=== PATIENT | female | born 2005 | race Two or more races ===

== ENCOUNTER 2023-07-22 14:34 | Outpatient (REF) | payer MEDICAID, SELFPAY ==
[2023-07-24 17:19] LABS: C. trachomatis RNA TMA NOT DETECTED (NOT DETECTED); N. gonorrhoeae RNA TMA NOT DETECTED (NOT DETECTED)
== END 2023-07-22 14:35 | disposition home or self-care (01) ==
LOC: HO.HHCLNP 14:34
PROVIDERS: Visit Provider Internal Medicine
DX: N76.0 Acute vaginitis (principal); N92.6 Irregular menstruation, unspecified
CPT/HCPCS: 36415; 81513; 87491; 87591

== ENCOUNTER 2023-07-30 13:32 | Outpatient (REF) | payer MEDICAID, SELFPAY ==
[2023-07-30 17:26] LABS: MANUAL DIFF FLAG NO
[2023-07-30 17:41] LABS: Basophils Percent Auto 0.4 % (0-2); Eosinophils Absolute Auto 0.1 X10*3/uL (0.0-0.4); Eosinophils Percent Auto 0.8 % (0-4); Hematocrit 29.8 % (37.0-47.0); Hemoglobin 7.6 g/dl (12.0-16.0); Imm Gran Abs Auto 0.03 X10*3/uL (0.00-0.03); Imm Gran Pct Auto 0.3 % (0.0-0.4); Lymphocytes Percent Auto 31.2 % (20-40); Mean Corpuscular HGB Conc 25.5 g/dl (31.0-35.0); Mean Corpuscular Hemoglobin 14.1 pg (27.0-33.0); Monocytes Absolute Auto 0.5 X10*3/uL (0.1-1.2); Monocytes Percent Auto 5.5 % (2-11); NRBC Pct Auto 0.4 /100WBC (0.0-0.2); Neutrophils Absolute Auto 5.9 x10*3/uL (2.0-8.3); Neutrophils Percent Auto 61.8 % (45-73); Platelet Count 457 X10*3/uL (160-400); Red Blood Count 5.39 X10*6/uL (4.20-5.50); Red Cell Distribution Width 22.5 % (11.0-16.0); White Blood Count 9.5 X10*3/uL (4.8-10.8)
[2023-07-30 18:05] LABS: Mean Corpuscular Volume 55.3 fL (80.0-98.0)
[2023-07-30 18:08] LABS: Alanine Aminotransferase 46 U/L (0-31); Alkaline Phosphatase 87 U/L (39-117); Anion Gap 12 (12-20); Aspartate Amino Transferase 16 U/L (5-31); Bilirubin Total 0.4 mg/dL (0.0-1.0); Blood Urea Nitrogen 11 mg/dL (9-16); Calcium 9.1 mg/dL (8.4-10.2); Carbon Dioxide 24 mmol/L (22-29); Chloride 105 mmol/L (96-108); Cholesterol 122 mg/dL (<200); Estimated Glomerular Filt Rate > 60; Glucose Random 79 mg/dL (60-115); HDL Cholesterol 26 mg/dL (>40); LDL Cholesterol Calculated 78 mg/dL (<100); Potassium 3.7 mmol/L (3.3-5.1); Sodium 137 mmol/L (135-145); Total Protein 7.9 g/dL (6.5-8.0); Triglycerides 91 mg/dL (<150)
[2023-07-30 18:26] LABS: Insulin 29 uU/mL (2-29); TSH reflex Free T4 0.72 uIU/mL (0.32-4.0); Vitamin D 25-OH Total 21.9 ng/mL (>30)
[2023-07-31 08:07] LABS: ~HepC Num1 0.14 S/CO (0.00-0.79)
[2023-07-31 08:08] LABS: HIV AB/AG Nonreactive (Nonreactive); HIV Num 1 0.05 S/CO (0.00-0.99); ~Hepatitis C Antibody Nonreactive (Nonreactive)
[2023-07-31 08:21] LABS: Syphilis Screen Nonreactive (Nonreactive)
[2023-07-31 23:39] LABS: Herpes Simplex Type 1 IgG 0.94 index; Herpes Simplex Type 2 IgG <0.90 index
[2023-08-01 04:54] LABS: Immunoglobulin M 201 mg/dL (50-300)
== END 2023-07-30 13:33 | disposition home or self-care (01) ==
LOC: HO.CHCLDS 13:32
PROVIDERS: Visit Provider Family Medicine
DX: E66.01 Morbid (severe) obesity due to excess calories (principal); Z11.3 Encounter for screening for infections with a predominantly sexual mode of transmission; Z68.37 Body mass index [BMI] 37.0-37.9, adult
CPT/HCPCS: 36415; 80053; 80061; 82306; 82784; 83525; 84443; 85025; 86695; 86696; 86780; 86803; 87389

== ENCOUNTER 2023-09-10 14:47 | Outpatient (REF) | payer MEDICAID, SELFPAY ==
[2023-09-10 18:16] LABS: HCG Quantitative < 2 mIU/mL
== END 2023-09-10 14:48 | disposition home or self-care (01) ==
LOC: HO.CHCLDS 14:47
PROVIDERS: Visit Provider Family Medicine
DX: N93.9 Abnormal uterine and vaginal bleeding, unspecified (principal)
CPT/HCPCS: 36415; 84702

== ENCOUNTER 2024-04-11 15:42 | Outpatient (REF) | payer MEDICAID, SELFPAY ==
[2024-04-11 17:34] LABS: Basophils Percent Auto 0.3 % (0-2); Eosinophils Percent Auto 1.6 % (0-4); Hemoglobin 8.5 g/dl (12.0-16.0); Imm Gran Abs Auto 0.08 X10*3/uL (0.00-0.03); Imm Gran Pct Auto 0.5 % (0.0-0.4); MANUAL DIFF FLAG SCAN; Mean Corpuscular Hemoglobin 15.5 pg (27.0-33.0); SCAN SMEAR FLAG 1
[2024-04-11 17:36] LABS: Basophils Absolute Auto 0.1 X10*3/uL (0.0-0.2); Eosinophils Absolute Auto 0.2 X10*3/uL (0.0-0.4); Hematocrit 31.4 % (37.0-47.0); Lymphocytes Percent Auto 27.1 % (20-40); Mean Corpuscular HGB Conc 27.1 g/dl (31.0-35.0); Mean Corpuscular Volume 57.4 fL (80.0-98.0); Mean Platelet Volume 9.7 fL (9.4-12.3); Monocytes Absolute Auto 0.9 X10*3/uL (0.1-1.2); Monocytes Percent Auto 6.4 % (2-11); Neutrophils Absolute Auto 9.4 x10*3/uL (2.0-8.3); Neutrophils Percent Auto 64.1 % (45-73); PLT ABN DIST 1; Platelet Count 449 X10*3/uL (160-400); Red Blood Count 5.47 X10*6/uL (4.20-5.50); Red Cell Distribution Width 22.3 % (11.0-16.0); White Blood Count 14.7 X10*3/uL (4.8-10.8)
[2024-04-11 17:51] LABS: SLIDE REVIEW VERIFIED
[2024-04-11 17:53] LABS: Iron 15 mcg/dL (30-160); Percent Iron Saturation 3 % (15-50); Total Iron Binding Capacity 436 mcg/dL (228-428); Unsaturated Iron Binding 421 ug/dL
[2024-04-11 18:05] LABS: Ferritin 5 ng/mL (10-122)
== END 2024-04-11 15:43 | disposition home or self-care (01) ==
LOC: HO.CHCLDS 15:42
PROVIDERS: Visit Provider Family Medicine
DX: D64.9 Anemia, unspecified (principal); N93.9 Abnormal uterine and vaginal bleeding, unspecified; R22.1 Localized swelling, mass and lump, neck
CPT/HCPCS: 36415; 82728; 83540; 85025

== ENCOUNTER 2024-06-09 14:57 | Outpatient (REF) | payer MEDICAID, SELFPAY ==
[2024-06-09 17:55] LABS: Basophils Percent Auto 0.4 % (0-2); Eosinophils Absolute Auto 0.2 X10*3/uL (0.0-0.4); Hemoglobin 8.9 g/dl (12.0-16.0); Mean Corpuscular HGB Conc 27.8 g/dl (31.0-35.0); Monocytes Absolute Auto 0.9 X10*3/uL (0.1-1.2); Monocytes Percent Auto 7.8 % (2-11); SCAN SMEAR FLAG 1
[2024-06-09 17:58] LABS: Imm Gran Abs Auto 0.03 X10*3/uL (0.00-0.03); Imm Gran Pct Auto 0.3 % (0.0-0.4); Lymphocytes Absolute Auto 3.5 X10*3/uL (1.2-4.9); Lymphocytes Percent Auto 31.9 % (20-40); MANUAL DIFF FLAG SCAN; Mean Corpuscular Hemoglobin 16.3 pg (27.0-33.0); Neutrophils Absolute Auto 6.4 x10*3/uL (2.0-8.3); Neutrophils Percent Auto 57.6 % (45-73); Platelet Count 530 X10*3/uL (160-400); Red Blood Count 5.46 X10*6/uL (4.20-5.50); Red Cell Distribution Width 22.1 % (11.0-16.0); White Blood Count 11.1 X10*3/uL (4.8-10.8)
[2024-06-09 18:19] LABS: Iron 19 mcg/dL (30-160); Percent Iron Saturation 5 % (15-50); Total Iron Binding Capacity 396 mcg/dL (228-428); Unsaturated Iron Binding 377 ug/dL
[2024-06-09 18:30] LABS: Mean Corpuscular Volume 58.6 fL (80.0-98.0); PLT ABN DIST 1
[2024-06-09 18:33] LABS: SLIDE REVIEW VERIFIED
[2024-06-09 18:38] LABS: Ferritin 5 ng/mL (10-122)
== END 2024-06-09 14:58 | disposition home or self-care (01) ==
LOC: HO.CHCLDS 14:57
PROVIDERS: Visit Provider Registered Nurse
DX: D50.9 Iron deficiency anemia, unspecified (principal)
CPT/HCPCS: 36415; 82728; 83540; 85025

== ENCOUNTER → 2024-09-05 14:36 | Outpatient (RCR) | payer MEDICAID, SELFPAY ==
[2024-07-18 14:12] VITALS: BP 128/66; PULSE 80; RESP 14; TEMP 36.1; O2SAT 98
[2024-07-18] MEDS: Iron Sucrose Complex 200 MG/10 ML VIAL IVPUSH (14:20)
[2024-07-25 14:32] VITALS: RESP 14; TEMP 36.6
[2024-07-25] MEDS: Iron Sucrose Complex 200 MG/10 ML VIAL IVPUSH (14:34)
[2024-07-25 14:38] VITALS: BP 128/68; PULSE 92; RESP 16; O2SAT 97
[2024-08-01 14:32] VITALS: BP 116/62; PULSE 81; RESP 14; TEMP 36.2; O2SAT 99
[2024-08-01] MEDS: Iron Sucrose Complex 200 MG/10 ML VIAL IVPUSH (14:46)
[2024-08-01] MEDS: 0.9 % Sodium Chloride Flush 10 ML SYRINGE 5 ML IVFLUSH (14:54)
[2024-08-11 13:12] VITALS: BP 106/74; PULSE 85; RESP 16; TEMP 36.5; O2SAT 99
[2024-08-11] MEDS: Iron Sucrose Complex 200 MG/10 ML VIAL IVPUSH (13:50)
[2024-08-11 14:05] LABS: Hematocrit 35.4 % (37.0-47.0); Hemoglobin 10.6 g/dl (12.0-16.0); Mean Corpuscular HGB Conc 29.9 g/dl (31.0-35.0); Mean Corpuscular Hemoglobin 19.4 pg (27.0-33.0); Mean Platelet Volume 9.7 fL (9.4-12.3); Platelet Count 437 X10*3/uL (160-400); Red Blood Count 5.45 X10*6/uL (4.20-5.50); Red Cell Distribution Width 29.8 % (11.0-16.0); White Blood Count 10.6 X10*3/uL (4.8-10.8)
[2024-08-11 14:38] LABS: Ferritin 86 ng/mL (10-122)
[2024-08-15 14:29] VITALS: BP 102/70; PULSE 76; RESP 14; TEMP 36.5; O2SAT 98
[2024-08-15] MEDS: diphenhydrAMINE HCL 25 MG CAPSULE PO (14:39)
[2024-08-15] MEDS: Acetaminophen 325 MG TABLET 650 MG PO (14:39)
[2024-08-15] MEDS: Iron Sucrose Complex 200 MG/10 ML VIAL IVPUSH (14:51)
[2024-08-15] MEDS: 0.9 % Sodium Chloride Flush 10 ML SYRINGE 5 ML IVFLUSH (14:58)
[2024-08-22 14:38] VITALS: BP 111/68; PULSE 85; RESP 14; TEMP 37.1; O2SAT 95
[2024-08-22] MEDS: diphenhydrAMINE HCL 25 MG CAPSULE PO (14:40)
[2024-08-22] MEDS: Acetaminophen 325 MG TABLET 650 MG PO (14:40)
[2024-08-22] MEDS: Iron Sucrose Complex 200 MG/10 ML VIAL IVPUSH (14:54)
[2024-08-22 15:04] VITALS: BP 125/59; PULSE 90
[2024-08-29 13:51] VITALS: BP 105/67; PULSE 65; RESP 14; TEMP 36.6; O2SAT 100
[2024-08-29] MEDS: Acetaminophen 325 MG TABLET 650 MG PO (13:58)
[2024-08-29] MEDS: Iron Sucrose Complex 200 MG/10 ML VIAL IVPUSH (13:58)
[2024-08-29] MEDS: diphenhydrAMINE HCL 25 MG CAPSULE PO (13:58)
[2024-09-05 13:48] VITALS: BP 130/53; PULSE 86; RESP 16; TEMP 37.1; O2SAT 96
[2024-09-05] MEDS: diphenhydrAMINE HCL 25 MG CAPSULE PO (13:51)
[2024-09-05] MEDS: Acetaminophen 325 MG TABLET 650 MG PO (13:51)
[2024-09-05 14:08] LABS: MANUAL DIFF FLAG NO
[2024-09-05] MEDS: Iron Sucrose Complex 200 MG/10 ML VIAL IVPUSH (14:12)
[2024-09-05 14:18] LABS: Basophils Percent Auto 0.3 % (0-2); Eosinophils Absolute Auto 0.2 X10*3/uL (0.0-0.4); Eosinophils Percent Auto 1.7 % (0-4); Hematocrit 41.6 % (37.0-47.0); Hemoglobin 12.8 g/dl (12.0-16.0); Imm Gran Abs Auto 0.04 X10*3/uL (0.00-0.03); Imm Gran Pct Auto 0.3 % (0.0-0.4); Lymphocytes Absolute Auto 3.3 X10*3/uL (1.2-4.9); Lymphocytes Percent Auto 24.2 % (20-40); Mean Corpuscular HGB Conc 30.8 g/dl (31.0-35.0); Mean Corpuscular Hemoglobin 21.9 pg (27.0-33.0); Mean Corpuscular Volume 71.2 fL (80.0-98.0); Mean Platelet Volume 9.8 fL (9.4-12.3); Monocytes Absolute Auto 0.9 X10*3/uL (0.1-1.2); Monocytes Percent Auto 6.5 % (2-11); Neutrophils Absolute Auto 9.2 x10*3/uL (2.0-8.3); Platelet Count 403 X10*3/uL (160-400); Red Blood Count 5.84 X10*6/uL (4.20-5.50); Red Cell Distribution Width 30.7 % (11.0-16.0); White Blood Count 13.8 X10*3/uL (4.8-10.8)
[2024-09-05 14:45] LABS: Ferritin 190 ng/mL (10-122)
== END | disposition home or self-care (01) ==
LOC: HO.INF 07-18 14:02
PROVIDERS: Visit Provider Nurse Practitioner Family
DX: D50.9 Iron deficiency anemia, unspecified (principal)
CPT/HCPCS: 36415; 82728; 85007; 85025; 85027; 88184; 88185; 96374; J1756

== ENCOUNTER 2024-09-15 13:53 | Outpatient (REF) | payer MEDICAID, SELFPAY ==
--- NOTE | ~2024-09-15 | US_ITS ---
EXAMINATION: US ABDOMEN COMPLETE CLINICAL INFORMATION: Right upper quadrant pain, elevated LFTs.. COMPARISON: None available. TECHNIQUE: Real-time imaging of the abdominal viscera. FINDINGS: PANCREAS: Visualized portions are unremarkable. ABDOMINAL AORTA: The proximal, mid, and distal segments are normal in caliber. INFERIOR VENA CAVA: Visualized portions are normal. LIVER: The liver is normal in size. Right hepatic lobe measures 16.6 cm. The liver contour is normal. There is diffuse increased liver parenchymal echogenicity, consistent with hepatic steatosis. No focal hepatic lesion. There is no intrahepatic biliary duct dilatation seen. GALLBLADDER: The gallbladder is physiologically distended without evidence of stones, sludge, polyps, wall thickening or pericholecystic fluid. COMMON BILE DUCT: Normal in caliber measuring 0.2 cm in diameter. RIGHT KIDNEY: No hydronephrosis. No renal calculi or focal parenchymal lesions. The kidney measures 12.0 cm in maximum dimension. LEFT KIDNEY: No hydronephrosis. No renal calculi or focal parenchymal lesions. The kidney measures 10.9 cm in maximum dimension. SPLEEN: The spleen measures 12.5 cm in maximum dimension. FREE FLUID: None. US/US abdomen complete IMPRESSION: Mildly increased hepatic echogenicity consistent with steatosis. Otherwise normal examination. Electronically signed by: Ravi Sebastian MD 09/15/2024 03:57 PM EDT
--- OUTSIDE RECORDS SUMMARY | 2024-09-15 16:20 | XMS_ITS | Encounter Summary ---
Author Organization [facility] Address [address] [place] [address] Care Team Providers Care Grease Press Helper Name Role Phone Rubi Cuellar MD Primary Care Provider [phone] Encounter Details Date Type Department Care Team (Late st Contact Info) Description 08/05/2023 Telephone [facility] MEDICINE [address] [place] [address] Rubi Cuellar MD [address] [place] [address] Social History Tobacco Use Types Packs/Day Years Used Date Smoking Tobacco: Never Smokeless Tobacco: Never Alcohol Use Standard Drinks/Week Comments Never 0 (1 standard drink = 0.6 oz pur e alcohol) Depression Answer Date Recorded Patient Health Questionnaire-9 Score 8 07/30/2023 Patient Health Questionnaire-9 Score 8 07/30/2023 Last PHQ-9: Questionnaire Data Not on file 0 07/30/2023 Housing Stability Answer Date Recorded What is your housing situation today? I have ragini zhang 07/30/[address] you li ve. Do you have problems with any of the following? None of the above 07/30/2023 Food Insecurity Answer Date Recorded Within the past 12 months, y ou worried that your food would run out before you got money to buy more: Never True 07/30/2023 Within the past 12 months,th e food you bought just didn't last and you didn't have enough money to get more: Never True 11/2023 Transportation Answer Date Recorded In the past 12 months, has l ack of transportation kept you from medical appts, meetings, work or from getting things needed for daily living? No 07/30/2023 Utilities Answer Date Recorded In the past 12 months, has t he electric, gas, oil or water company threatened to shut off services in your home? No 07/30/2023 Depression Answer Date Recorded Patient Health Questionnaire-2 Score 2 07/30/2023 Comments Unknown Sex and Gender Information Value Date Recorded Sex Assigned at Female 04/18/2023 9:52 PM EST Legal Sex Female 9:50 PM EST Gender Identity Female 04/18/2023 9:52 PM EST Sexual Orientation Straight 08/03/2023 9: 21 AM EDT documented as of this encounter Miscellaneous Notes * Telephone Encounter - Rubi Cuellar MD - 08/18/2023 11:11 AM EDT Note signed tyhanks! * Telephone Encounter - Jessica Meredith - 08/18/2023 10:06 AM EDT Please sign chart notes of 08/11 to proceed with referral. Thank you. documented in this encounter Plan of Treatment Not on file documented as of this encounter Visit Diagnoses Not on filedocumented in this encounter Additional Health Concerns Assessment Noted Time PHQ-9 Depression Total Score: 8 07/30/19 24 12:52 PM EST documented as of this encounter Care Teams Grease Press Helper Relationship Specialty Start Date End Date Rubi Cuellar MD [address] [place] [id number] PCP - General Family Medicine 07/30/23 documented as of this encounter
--- OUTSIDE RECORDS SUMMARY | 2024-09-15 16:20 | XMS_ITS | Clinical Summary ---
Author Organization [facility] ity Address [address] [place] [address] Care Team Providers Care Naval Architect Name Role Phone Unavailable Primary Care Provider Unavailabl e Social History Tobacco Use Types Packs/Day Years Used Date Smoking Tobacco: Never Assessed Comments Unknown Sex and Gender Information Value Date Recorded Sex Assigned at Not on file Legal Sex Female 8:57 PM EST Gender Identity Not on file Sexual Orientation Not on file Plan of Treatment Health Maintenance Due Date Last Done Comments Gonorrhea/Chlamydia Screening 2003 HPV Vaccines (1 - 3-dose series) 08/22/2018 Meningococcal B Vaccine (1 o f 2 - Standard) 2019 DTaP,Tdap,and Td Vaccines (1 - Tdap) 08/22/2022 Hepatitis B Vaccines (1 of 3 - 19+ 3-dose series) 08/22/2022 Annual Well Child Visit (3-2 1 years old) 06/19/2023 Depression Screening 06/19/2023 HIV Screening 06/19/2023 Hepatitis C Screening 06/19/2023 Social Influencers of Health Screening 06/19/2023 COVID-19 Vaccine (1 - 2023-2 5 season) 2024 Cervical Cancer Screening: P ap Smear 08/22/2024 Influenza Vaccine (Season Ended) 2025 HIB Vaccines Aged Out No longer eligi ble based on patient's age to complete this topic Hepatitis A Vaccines Aged Out No long er eligible based on patient's age to complete this topic IPV Vaccines Aged Out No longer eligi ble based on patient's age to complete this topic MMR Vaccines Aged Out No longer eligi ble based on patient's age to complete this topic Meningococcal ACWY Vaccine Aged Out N o longer eligible based on patient's age to complete this topic Pneumococcal Vaccine: Pediat rics (0 to 5 Years) and At-Risk Patients (6 to 64 Years) Aged Out No longer eligible b ased on patient's age to complete this topic RSV Immunization Patients Un leslie 20 months Aged Out No longer eligible b ased on patient's age to complete this topic Varicella Vaccines Aged Out No longer eligible based on patient's age to complete this topic
--- OUTSIDE RECORDS SUMMARY | 2024-09-15 16:20 | XMS_ITS | Clinical Summary ---
Author Organization [facility] Address [address] [place] [address] Care Team Providers Care Sustainability Officer Name Role Phone Rubi Cuellar MD Primary Care Provider [phone] Allergies Active Allergy Reactions Criticality Noted Date Comments Aspirin 09/10/2023 Medications * This document contains information received from the source organization and may not represent a complete record from that organization. cholecalciferol (Vitamin D-3) 25 MCG (1000 UT) tablet Take 1 tablet (25 mcg) by mouth in the morning. 90 tablet 1 07/30/19 24 Active famotidine (Pepcid) 40 MG tabletIndication s:Heartburn Take 20 mg by mouth 2 times daily. Active Ferrous Sulfate 300 MG/6.8ML solutionIndicati ons:Anemia, unspecified type Take 6.8 mL (300 mg) by mouth Once per day. 612 mL 2 05/06/20 24 Active albuterol 108 (90 Base) MCG/ACT inhaler Inhale 2 puffs every 4 (four) hours if needed for wheezing. 18 g 05/30/19 25 026 Active econazole nitrate 1 % creamIndications :Intertrigo Apply topically 2 times daily. Use for 2-4 weeks under left breast. 15 g 05/30/19 25 026 Active hydrocortisone 2.5 % creamIndications :Intertrigo Apply topically 2 times daily. Use for 2-4 weeks under left breast. 15 g 05/30/19 25 Active Zepbound 2.5 MG/0.5ML solution auto-injector INJECT 0.5ML'S (2.5MG'S) SUBCUTANEOUSLY ONCE PER WEEK 2 mL 3 08/10/19 25 Active triamcinolone (Kenalog) 0.1 % creamIndications :Post-inflammato ry hyperpigmentatio n,Neurotic excoriations Apply topically if needed in the morning and at bedtime (pain and swelling). 80 g 3 08/10/19 25 Active doxepin (SINEquan) 10 MG capsuleIndicatio ns:Post-inflamma tory hyperpigmentatio n,Neurotic excoriations Take 1 capsule (10 mg) by mouth at bedtime. 30 capsule 11 08/10/19 25 026 Active azithromycin (Zithromax) 250 MG tablet Take 2 tabs orally on day 1, then 1 tab orally daily for 4 more days 6 tablet 08/26/19 25 Active loperamide (Imodium A-D) 2 MG tablet Take 1-2 tablets (2-4 mg) by mouth if needed in the morning, at noon, in the evening, and at bedtime for diarrhea for up to 10 days. 30 tablet 09/02/19 25 025 Active Problems Problem Noted Date Diagnosed Date Skin lesion 05/30/2024 Physical exam 04/11/2024 Postinflammatory pigmentary changes 04/11/2024 Assessment & Plan (06/02/2024 4:28 PM EST): - Interested in Derm consult, referral placed -May use mupirocin topical as needed open lesions for bacterial infection prevention Other sleep apnea 04/11/2024 Assessment & Plan (04/11/2024 3:31 PM EST): Ordering sleep test for further evaluation of Sx. Anemia 08/12/2023 Assessment & Plan (06/02/2024 4:27 PM EST): - Labs c/w ABI, suspect secondary to AUB. Workup for AUB ongoing through PCP - Unsuccessful trial of PO iron in multiple formulations - Referral to Heme/Onc for further eval and management Assessment & Plan (04/11/2024 3:30 PM EST): Ordering lab work for further evaluation. Assessment & Plan (08/12/2023 10:22 PM EDT): Likely secondary to heavy menstrual bleeding. She has started iron supplementation but is experiencing difficulty with medication's form. Consider switching to a different formulation or exploring alternative routes of administration. Educate on the importance of adherence to iron therapy. Ordered US Pelvis and Pelvis Transvaginal. Referred patient to hematology. Abnormal uterine bleeding (AUB) 08/12/2023 Assessment & Plan (04/11/2024 3:29 PM EST): Ordering US for further evaluation of Sx. Assessment & Plan (09/11/2023 12:36 AM EDT): - The patient states she is experiencing amenorrhea since the last menstrual cycle that started on Jul 22. The patient had an in-home test and stated it was negative. A blood test will be issued at the office. - Patient denied getting Pelvic US done. She stated that she was indeed called to schedule the appointment, but she wanted to have it done at a different location. The patient was educated on the need to have the ultrasound at the location provided. - F/U once the US has been completed and the results are available in order to create a treatment plan. Assessment & Plan (08/12/2023 10:18 PM EDT): Further evaluation needed to determine the cause of heavy menstrual bleeding. Consider referral to INSURANCE SALES SUPERVISOR for assessment and management. Class 2 severe obesity due t o excess calories with serious comorbidity and body mass index (BMI) of 37.0 to 37.9 in adult 07/30/2023 Assessment & Plan (04/12/2024 9:43 AM EST): Reviewed indications for pharmacotherapy with patient, which is treatment for patient w/ obesity or a patient with a BMI > 27 w/ CV risk factors who have failed lifestyle modifications alone. These are always prescribed in combination with ongoing lifestyle modification; and will be titrated up from the lowest dose. Will start patient on Zepbound, given know efficacy. Reviewed mechanism of action with patient. Discussed side effects with patient: nausea, vomiting, diarrhea & risk of pancreatitis. No contraindications identified: , hx of pancreatitis, hx of medullary thyroid cancer or MEN 2. Discussed calorie deficit, recommended reduction of 20-30% of maintenance calories; books binder referral offered. Recommended to decrease soda and sugary beverage consumption. Recommended at least 20 g per meal of protein to assist with satiety. Recommended at least 150 min/week of moderate intensity exercise. Assessment & Plan (08/01/2023 2:49 AM EST): Discussed calorie deficit, recommended reduction of 20-30% of maintenance calories; books binder referral offered. Recommended to decrease soda and sugary beverage consumption. Recommended at least 20 g per meal of protein to assist with satiety. Recommended at least 150 min/week of moderate intensity exercise. Ordered routine labs including STI screening. Labs: CBC, chlamydia/ gonorrhea, hep C, comprehensive metabolic panel, TSH w/ reflex, vitamin D, Lipid panel, insulin, HIV, Syphilis, Herpes Adjustment disorder with mixed anxiety and depre ssed mood 07/22/2023 Assessment & Plan (07/23/2023 8:15 AM EST): PROGRESS NOTE: ID: Mela is a 17 y.o. cis-female with previous documented hx of Depression MH services including [facility] Psychotherapy and psychopharmacology; who presents for Anxiety and Depression. Mela lives with her grandmother. Reported Hx of trauma in childhood, Hx of self- harm started at age 11 until 12 y/o. Currently engage in MH services at [facility], last appt with therapist was 07/18/23 and next appt with Psychiatrist is 07/24/23. During IB Consult Mela presenting with depressed mood, loss of interests/pleasure , changes in sleep difficulty staying asleep , change in appetite or weight reduce appetite, psychomotor agitation, trouble concentrating, fatigue/loss of energy, worthlessness and excessive worry/anxiety, difficulty controlling worry, restless/keyed up/On edge, easily fatigued, difficulty concentrating/Mind going blank , irritability, muscle tension, and sleep disturbance difficulty staying asleep ; for a period of 0-6 mo, for all symptoms in the context of recent breakup and concern about STD exposure. PLAN: Continue with current services (defined as services in the past 12 months) Contact [facility] team as needed Contact [facility] if a crisis episode arise. Assessment & Plan (07/22/2023 5:00 PM EST): Off meds, counseled to restart sertraline and fu with provider at [facility]. counselor in house called for addtl evaluation Patient feels safe and is able to reach out for safety. Depression 07/22/2023 Irregular menstrual bleeding 07/22/2023 Assessment & Plan (06/02/2024 4:26 PM EST): - Abd US & Pelvis transvaginal US pending Assessment & Plan (07/22/2023 4:57 PM EST): Menstrual bleeding today? test is NEG. Counseled to restart OCP DAILY, do not stop unless she doesn't tolerate them and re consult with her PCP or PP. Acute vaginitis 07/22/2023 Assessment & Plan (07/22/2023 4:59 PM EST): Likely candidiasis. Rx Fluconazole 150mg x 1 + Lotrisone cream on vulvar area. She can use Desitin cream prn for irritation Avoid vaginal douches, scented soaps, non-cotton panties. FU Vag swab result Encounters Date Type Department Care Team Description 09/15/2024 Orders Only [facility] External Provider, [facility] 09/01/2024 2:20 PM EDT Office Visit [facility] [address] [place] [address] Disha Encarnacion MD AGE (acute gastroenteritis) (Primary Dx) 09/01/2024 Travel 09/01/2024 Patient Outreach [facility] [address] [place] [phone] Rubi Cuellar MD Care Coordination (C3/CM Outreach) 08/25/2024 3:45 PM EDT Office Visit [facility] [address], [place] [phone] Disha Encarnacion MD Subacute maxillary sinusitis (Primary Dx); URI, acute 08/25/2024 Travel 08/25/2024 Telephone [facility] [address] [place] [address] Rubi Cuellar MD Nurse Triage 08/16/2024 Patient Outreach [facility] [address] [place] [address] Rubi Cuellar MD Care Coordination (Outreach) 08/09/2024 11:00 AM EDT Office Visit [facility] [address] [place] [address] Vibha Rios MD Post-inflammatory hyperpigmentation (Primary Dx); Neurotic excoriations 08/09/2024 Refill [facility] [address] [place] [address] Rubi Cuellar MD 08/09/2024 Travel 08/05/2024 Population Health Risk Score [facility] () Department [address] [place] [phone] Provider, Population Health Generic 08/03/2024 Patient Outreach [facility] [address] [place] [address] Rubi Cuellar MD Care Coordination (Outreach) 07/22/2024 3:15 PM EST Office Visit [facility] [address] [place] [address] Vibha Rios MD Viral upper respiratory tract infection (Primary Dx) 07/22/2024 Travel 07/18/2024 Patient Outreach [facility] [address] [place] [address] Rubi Cuellar MD Care Coordination (Outreach) from Last 3 Months Immunizations Name Administration Dates Next Due Influenza injectable quadrivalent preservative f ree 03/01/2020 Influenza, seasonal, injectable, preservative fr ee 04/11/2024 Tdap 04/11/2024 Family History Medical History Relation Name Comments Diabetes Maternal Grandfather Hypertension Maternal Grandmother Heart disease Mother Relation Name Status Comments Maternal Grandfather Maternal Grandmother Mother Social History Tobacco Use Types Packs/Day Years Used Date Smoking Tobacco: Never Passive Smoke Exposure: Never Smokeless Tobacco: Never Tobacco Cessation:Counseling Given: Not Answered Alcohol Use Standard Drinks/Week Comments Never 0 (1 standard drink = 0.6 oz pur e alcohol) Depression Answer Date Recorded Patient Health Questionnaire-9 Score 19 04/11/2024 Patient Health Questionnaire-9 Score 19 04/11/2024 Last PHQ-9: Questionnaire Data Not on file 1 06/11/2023 Housing Stability Answer Date Recorded What is [...] Answer Date Recorded Patient Health Questionnaire-2 Score 3 04/11/2024 Comments No Sex and Gender Information Value Date Recorded Sex Assigned at Female 04/18/2023 9:52 PM EST Legal Sex Female 9:50 PM EST Gender Identity Female 04/18/2023 9:52 PM EST Sexual Orientation Straight 08/03/2023 9: 21 AM EDT Last Filed Vital Signs Vital Sign Reading Time Taken Comments Blood Pressure 124/62 09/01/2024 1:32 PM EDT Pulse 95 09/01/2024 1:32 PM EDT Temperature 36.7 ??C (98 ??F) 09/01/2024 1:32 PM EDT Respiratory Rate 18 09/01/2024 1:32 PM EDT Oxygen Saturation 98% 09/01/2024 1:32 PM EDT Inhaled Oxygen Concentration - - Weight 103 kg (228 lb) 08/25/2024 3:51 PM EDT Height 166.4 cm (5' 5.5 ) 08/25/2024 3:51 PM EDT Body Mass Index 37.36 08/25/2024 3:51 PM EDT Plan of Treatment Health Maintenance Due Date Last Done Comments Alcohol/Substance Use Screening 2015 Family Planning (PISQ) 08/22/2018 HPV Vaccines (1 - 3-dose series) 08/22/2018 Hepatitis B Vaccines (1 of 3 - 19+ 3-dose series) 08/22/2022 COVID-19 Vaccine (3 - 2023-2 5 season) 2024 01/30/2021, 01/09/2021 Chlamydia and Gonorrhea Screening 07/22/2024 07/22/2023 SDOH Screening 07/29/2024 07/30/2023 Pap Smear 08/22/2024 Depression Monitoring 10/09/2024 04/11/2024 , 04/11/2024 Depression Screening 04/11/2025 04/11/2024, 04/11/2024 Tobacco Screening 08/09/2025 08/09/2024 Lipid Panel 07/29/2028 07/30/2023 DTaP/Tdap/Td Vaccines (3 - T d or Tdap) 07/16/2034 07/16/2024, 04/11/2024 Zoster Vaccines (1 of 2) 08/22/2053 RSV Patients and Patients Aged 60 years or older (1 - 1-dose 75+ series) 08/22/2078 HIV Screening Completed 07/30/2023 Hepatitis C Screening Completed 07/30/2023 Influenza Vaccine Completed 04/11/2024, 03/01/2020 HIB Vaccines Aged Out No longer eligi ble based on patient's age to complete this topic Hepatitis A Vaccines Aged Out No long er eligible based on patient's age to complete this topic IPV Vaccines Aged Out No longer eligi ble based on patient's age to complete this topic Meningococcal Vaccine Aged Out No lilliana willian eligible based on patient's age to complete this topic Pneumococcal Vaccine: Pediatrics (0 to 5 Years) and At-Risk Patients (6 to 49) Years) Aged Out No longer eligible b ased on patient's age to complete this topic RSV under 20 months Aged Out No longe r eligible based on patient's age to complete this topic Rotavirus Vaccines Aged Out No longer eligible based on patient's age to complete this topic Procedures Procedure Name Priority Date/Time Associated Diagnosis Comments US ABDOMEN COMPLETE Routine 09/15/2024 2 :44 PM EDT POCT RAPID COVID ANTIGEN Routine 08/25/2024 4:29 PM EDT URI, acute POC DENNIS ID NOW STREP A Routine 08/25/2024 4:28 PM EDT URI, acute POCT INFLUENZA B (ID NOW RAPID MOLECULAR) Routine 08/25/2024 4:28 PM EDT URI, acute POCT INFLUENZA A (ID NOW RAPID MOLECULAR) Routine 08/25/2024 4:27 PM EDT URI, acute POCT INFLUENZA A Routine 07/22/2024 3:59 PM EST Viral upper respiratory tract infection POCT INFLUENZA B Routine 07/22/2024 3:58 PM EST Viral upper respiratory tract infection POCT RAPID COVID ANTIGEN Routine 07/22/2024 3:57 PM EST Viral upper respiratory tract infection HOME SLEEP TEST Routine 06/23/2024 Other sleep apnea HEPATITIS C AB W/REFL TO HCV RNA, QN, PCR Routine 07/30/2023 1:53 PM EST Routine screening for STI (sexually transmitted infection) HIV 1/2 ANTIGEN/ANTIBODY, FOURTH GENERATION W/RFL Routine 07/30/2023 1:53 PM EST Routine screening for STI (sexually transmitted infection) LIPID PANEL, STANDARD Routine 07/30/2023 1:53 PM EST Class 2 severe obesity due to excess calories with serious comorbidity and body mass index (BMI) of 37.0 to 37.9 in adult SURESWAB(R) ADVANCED BV/CT/NG, TMA Routine 07/22/2023 2:34 PM EST Acute vaginitis Irregular menstrual bleeding from Last 3 Months or Most Recently Relevant to Health Maintenance Results * US Abdomen Complete (09/15/2024 2:44 PM EDT) Anatomical Region Laterality Modality Abdomen Ultrasound 09/15/2024 2:44 PM EDT Narrative 09/15/2024 4:00 PM EDT ? [facility] ?[address] ?[place] [address] ? Ultrasound Report ? Signed ? Patient: Chow Medrano,Mela M ?MR#: [id number] ?? [id number] ? : 2005 ?Acct:[id number] ? Age/Sex: 19 / F ?ADM Date: 09/15/24 ? Loc: HO.US ? Attending Dr: Aida Brizuela NP ? Ordering Physician: Aida Brizuela NP ?? Date of Service: 09/15/24 ?? Procedure(s): US abdomen complete ?? Accession Number(s): [id number] ? cc: Aida Brizuela NP; Rubi Cuellar MD ? EXAMINATION: ?? US ABDOMEN COMPLETE ? CLINICAL INFORMATION: ?? Right upper quadrant pain, elevated LFTs.. ? COMPARISON: ?? None available. ? TECHNIQUE: ?? Real-time imaging of the abdominal viscera. ? FINDINGS: ? PANCREAS: Visualized portions are unremarkable. ? ABDOMINAL AORTA: The proximal, mid, and distal segments are normal in ?? caliber. ? INFERIOR VENA CAVA: Visualized portions are normal. ? LIVER: The liver is normal in size. Right hepatic lobe measures 16.6 ?? cm. The liver contour is normal. There is diffuse increased liver ?? parenchymal echogenicity, consistent with hepatic steatosis. ??No focal ?? hepatic lesion. There is no intrahepatic biliary duct dilatation seen. ? GALLBLADDER: The gallbladder is physiologically distended without ?? evidence of stones, sludge, polyps, wall thickening or pericholecystic ?? fluid. ? COMMON BILE DUCT: Normal in caliber measuring 0.2 cm in diameter. ? RIGHT KIDNEY: No hydronephrosis. No renal calculi or focal parenchymal ?? lesions. The kidney measures 12.0 cm in maximum dimension. ? LEFT KIDNEY: No hydronephrosis. No renal calculi or focal parenchymal ?? lesions. The kidney measures 10.9 cm in maximum dimension. ? SPLEEN: The spleen measures 12.5 cm in maximum dimension. ? FREE FLUID: None. ? US/US abdomen complete ?? IMPRESSION: ?? Mildly increased hepatic echogenicity consistent with steatosis. ?? Otherwise normal examination. ? Electronically signed by: ??Ravi Sebastian MD ??09/15/2024 03:57 PM EDT RP ? Dictated By: ?Ravi Sebastian MD ? Signed By: ?<Electronically signed by Ravi Sebastian MD in OV> ?09/15/24 1557 ? DD/ 1444 ? TD/TT: 09/15/24 1452 ? Breakdown Mill Operator: ? Procedure Note Donotuseinterpreter, Image - 09/15/2024 [place] [id number] Ultrasound Report Signed Patient: Meal Farrell MMR#: [id number] : 2005Acct:[id number] Age/Sex: 19 / FADM Date: 09/15/24 Loc: HO.US Attending Dr: Aida Brizuela NP Ordering Physician: Aida Brizuela NP Date of Service: 09/15/24 Procedure(s): US abdomen complete Accession Number(s): [id number] cc: Aida Brizulea NP; Rubi Cuellar MD EXAMINATION: US ABDOMEN COMPLETE CLINICAL INFORMATION: Right upper quadrant pain, elevated LFTs.. COMPARISON: None available. TECHNIQUE: Real-time imaging of the abdominal viscera. FINDINGS: PANCREAS: Visualized portions are unremarkable. ABDOMINAL AORTA: The proximal, mid, and distal segments are normal in caliber. INFERIOR VENA CAVA: Visualized portions are normal. LIVER: The liver is normal in size. Right hepatic lobe measures 16.6 cm. The liver contour is normal. There is diffuse increased liver parenchymal echogenicity, consistent with hepatic steatosis. No focal hepatic lesion. There is no intrahepatic biliary duct dilatation seen. GALLBLADDER: The gallbladder is physiologically distended without evidence of stones, sludge, polyps, wall thickening or pericholecystic fluid. COMMON BILE DUCT: Normal in caliber measuring 0.2 cm in diameter. RIGHT KIDNEY: No hydronephrosis. No renal calculi or focal parenchymal lesions. The kidney measures 12.0 cm in maximum dimension. LEFT KIDNEY: No hydronephrosis. No renal calculi or focal parenchymal lesions. The kidney measures 10.9 cm in maximum dimension. SPLEEN: The spleen measures 12.5 cm in maximum dimension. FREE FLUID: None. US/US abdomen complete IMPRESSION: Mildly increased hepatic echogenicity consistent with steatosis. Otherwise normal examination. Electronically signed by: Ravi Sebastian MD 09/15/2024 03:57 PM EDT Dictated By: Ravi Sebastian MD Signed By: <Electronically signed by Ravi Sebastian MD in OV> 09/15/24 1557 DD/ 1444 TD/TT: 09/15/24 1452 Breakdown Mill Operator: [facility] External Provider IMG US PROCEDURES Final Result * POCT Rapid COVID Ag (08/25/2024 4:29 PM EDT) Only the most recent of2 resultswithin the time period is included. Rapid COVID Ag Negative QC Media Lot # Comment:[id number] Lot# Expiration Date Comment:12/02/2024 Swab 08/25/2024 4:29 PM EDT Disha Encarnacion MD POINT OF CARE TEST ENTER/EDIT ORDERABLES Final Result * Influenza B (ID NOW Rapid Molecular) (08/25/2024 4:28 PM EDT) Influenza B Negative Negative, Indeterminate [facility] QC Media Lot # [facility] Comment:[id number] Lot# Expiration Date [facility] Comment:12/22/2024 Swab 08/25/2024 4:28 PM EDT Disha Encarnacion MD POINT OF CARE TEST ENTER/EDIT ORDERABLES Final Result [facility] [address] [place] [phone] [phone] * POCT ID NOW Rapid Strep A manually resulted (08/25/2024 4:28 PM EDT) [facility] Rapid Strep A Screen Negative Negative, None Detected QC Media Lot # Comment:[id number] Lot# Expiration Date Comment:08/22/2025 Swab 08/25/2024 4:2 8 PM EDT Disha Encarnacion MD POINT OF CARE TEST ENTER/EDIT ORDERABLES Final Result * Influenza A (ID NOW Rapid Molecular) (08/25/2024 4:27 PM EDT) [facility] Influenza A Negative Negative, Indeterminate [facility] QC Media Lot # [facility] Comment:[id number] Lot# Expiration Date [facility] Comment:12/22/2024 Swab 08/25/2024 4:27 PM EDT Disha Encarnacion MD POINT OF CARE TEST ENTER/EDIT ORDERABLES Final Result [facility] [address] [place] [phone] * POCT Rapid Influenza A OSOM (07/22/2024 3:59 PM EST) [facility] Rapid Influenza A Ag Negative Negative, Indeterminate QC Media Lot # [id number] Lot# Expiration Date , Comment:controls passed Swab Nasopharyngeal structure / Unknown 07/22/2024 3:59 PM EST Vibha Rios MD POINT OF CARE TEST ENTER/ED IT ORDERABLES Final Result * POCT Rapid Influenza B OSOM (07/22/2024 3:58 PM EST) [facility] Rapid Influenza B Ag Negative Negative, Indeterminate QC Media Lot # [id number] Lot# Expiration Date , Comment:controls passed Swab 07/22/2024 3:58 PM EST Result [facility] Vibha Rios MD POINT OF CARE TEST ENTER/ED IT ORDERABLES Final Result * Home sleep test (06/23/2024) Rubi Cuellar MD SLEEP CENTER ORDERABLES Final Result * Hepatitis C Antibody with Reflex to HCV, RNA, Quantitative, Real-Time PCR (07/30/2023 1:53 PM EST) Hepatitis C Antibody Nonreactive Nonreactive [facility] Comment:Antibodies to HCV no t detected; does not exclude early acuteHCV infection. Blood Venous blood specimen / Unknown 07/30/2023 1:53 PM EST 07/30/2023 5:22 PM EST Result [facility] Rubi Cuellar MD LAB BLOOD ORDERABLES Final Re sult [facility] [address] [place] [phone] * HIV-1/2 Antigen and Antibodies, Fourth Generation, with Reflexes (07/30/2023 1:53 PM EST) Pathologist [facility] HIV AB/AG Nonreactive Nonreactive [facility] Comment:HIV-1 p24 Ag and/or HIV-1/HIV-2 Ab not detected.A test result that is nonreactive does not exclude thepossibility of exposure to or infection with HIV-1 and/orHIV-2. Nonreactive results in this assay for individualswith prior exposure to HIV-1 and/or HIV-2 may be due toantigen and antibody levels that are below the limit ofdetection of this assay.The [employer] HIV Ag/Ab Combo assay result andsupplemental assay results should be interpreted inconjunction with the patient's clinical presentation,history and other laboratory results. If the results areinconsistent with clinical evidence, additional testing issuggested to confirm the result. Blood Venous blood specimen / Unknown 07/30/2023 1:53 PM EST 07/30/2023 5:22 PM EST us Rubi Cuellar MD LAB BLOOD ORDERABLES Final Re sult Performing Organization Address [facility] Co de Phone Number [facility] [address] [place] [address] [phone] * (ABNORMAL) Lipid Panel, Standard (07/30/2023 1:53 PM EST) Triglycerides 91 <150 mg/dL [facility] Comment:Desirable Triglyceri de: less than 90 mg/dLBorderline High Triglyceride: 90-129 mg/dLHigh Triglyceride: greater than 130 mg/dL Cholesterol 122 <200 mg/dL [facility] Comment:Desirable Cholestero l: less than 170 mg/dLBorderline High Cholesterol: 170-199 mg/dLHigh Cholesterol: greater than 200 mg/dL LDL Cholesterol Calculated 78 <100 mg/dL [facility] Comment:Desirable LDL: less than 110 mg/dLBorderline LDL: 110-129 mg/dLHigh LDL: greater than or equal to 130 mg/dL HDL Cholesterol 26(L) >40 mg/dL [facility] Comment:Desirable HDL: great er than 45 mg/dLBorderline HDL: 40-45 mg/dLLow HDL: less than 40 mg/dL Note: This HDL assay may give artificially low results in patients with liver disease. Blood Venous blood specimen / Unknown 07/30/2023 1:53 PM EST 07/30/2023 5:22 PM EST us Rubi Cuellar MD LAB BLOOD ORDERABLES Final Re sult Performing Organization Address [facility]/ZIP Co de Phone Number [facility] [address] [place] [address] [phone] * (ABNORMAL) SureSwab?? Advanced Bacterial Vaginosis (BV), CT/NG, TMA (07/22/2023 2:34 PM EST) CTNG Ref Lab NOT DETECTED NOT DETECTED [facility] NG Ref Lab NOT DETECTED NOT DETECTED [facility] Comment:For additional infor matrenato, please refer tohttps://education.RE2/faq/SLB551(This link is being provided for information/educational purposes only.)THIS TEST WAS PERFORMED AT:[facility] [place] [address]JHVZLBRYON GONZALEZ MD SureSwab 9R) ADV Bacterial Vaginosis (BV), TMA POSITIVE(A) NEGATIVE [facility] Comment:THIS TEST WAS PERFOR MED AT:[facility] [place] [address]ZNCLCBRYON GONZALEZ MD 07/22/2023 2:34 PM EST 07/23/2023 1:39 PM EST Rachel Chatman MD LAB BODY FLUIDS AND STOO LS ORDERABLES Final Result [facility] [address] [place] [address] [phone] from Last 3 Months or Most Recently Relevant to Health Maintenance Insurance [place] [address] C3 Care Teams Sustainability Officer Relationship Specialty Start Date End Date Rubi Cuellar MD [address] [place] [phone] PCP - General Family Medicine 07/30/23
--- OUTSIDE RECORDS SUMMARY | 2024-09-15 16:20 | XMS_ITS | Encounter Summary ---
Author Organization [employer] [facility] Address [address] [place] [address] Care Team Providers Care Intern Product Marketing Manager Name Role Phone Rubi Cuellar MD Primary Care Provider [phone] Encounter Details Date Type Department Care Team (Late st Contact Info) Description 09/15/2024 Orders Only [facility] External Provider, [facility] Social History Tobacco Use Types Packs/Day Years Used Date Smoking Tobacco: Never Passive Smoke Exposure: Never Smokeless Tobacco: Never Alcohol Use Standard [...] AM EDT documented as of this encounter Plan of Treatment Not on file documented as of this encounter Procedures Procedure Name Priority Date/Time Associated Diagnosis Comments US ABDOMEN COMPLETE Routine 09/15/2024 2 :44 PM EDT documented in this encounter Results * US Abdomen Complete (09/15/2024 2:44 PM EDT) Anatomical Region Laterality Modality Abdomen Ultrasound 09/15/2024 2:44 PM EDT Narrative 09/15/2024 4:00 PM EDT ? [facility] ?[address] ?[place] [address] ? Ultrasound Report ? Signed ? Patient: Chow Medrano,Mela M ?MR#: MM ?? [id number] ? : 2005 ?Acct:[id number] ? Age/Sex: 19 / F ?ADM Date: 09/15/24 ? Loc: HO.US ? Attending Dr: Aida Brizuela MOVEMENT THERAPIST ? Ordering Physician: Aida Brizuela NP ?? Date of Service: 09/15/24 ?? Procedure(s): US abdomen complete ?? Accession Number(s): [id number] ? cc: Aida Brizuela NP; Rubi Cuellar [...] DD/ 1444 ? TD/TT: 09/15/24 1452 ? Plug Cutting Machine Operator: ? Procedure Note Wiliam Davila - 09/15/2024 [place] [phone] Ultrasound Report Signed Patient: Mela Farrell [facility]#: [id number] : 2005Acct:[id number] Age/Sex: 19 / FADM Date: 09/15/24 Loc: HO.US Attending Dr: Aida Brizuela NP Ordering Physician: Aida Brizuela NP Date of Service: 09/15/24 Procedure(s): US abdomen complete Accession Number(s): [id number] cc: Aida Brizuela NP; Rubi Cuellar MD EXAMINATION: US ABDOMEN [...] 09/15/24 1557 DD/ 1444 TD/TT: 09/15/24 1452 Plug Cutting Machine Operator: us [facility] External Provider IMG US PROCEDURES Final Result documented in this encounter Visit Diagnoses Not on filedocumented in this encounter Additional Health Concerns Assessment Noted Time PHQ-9 Depression Total Score: 19 024 2:52 PM EST documented as of this encounter Care Teams Intern Product Marketing Manager Relationship Specialty Start Date End Date Rubi Cuellar MD [address] [place] [address] PCP - General Family Medicine 07/30/23 documented as of this encounter
== END 2024-09-15 13:54 | disposition home or self-care (01) ==
LOC: HO.US 13:53
PROVIDERS: PCP Family Medicine; Visit Provider Nurse Practitioner Family
DX: R79.89 Other specified abnormal findings of blood chemistry (principal); R10.11 Right upper quadrant pain
CPT/HCPCS: 76700

== ENCOUNTER → 2024-09-15 14:17 | Outpatient (BNV) | payer MEDICAID, SELFPAY | PROVIDERS: PCP Family Medicine; Visit Provider Radiology Diagnostic Radiology | DX: R10.11 Right upper quadrant pain (principal); R74.01 Elevation of levels of liver transaminase levels | CPT/HCPCS: 76700 ==

== ENCOUNTER 2024-11-01 12:33 | Outpatient (REF) | payer MEDICAID, SELFPAY ==
[2024-11-01 14:23] LABS: MANUAL DIFF FLAG NO
[2024-11-01 14:25] LABS: Basophils Percent Auto 0.3 % (0-2); Eosinophils Absolute Auto 0.3 X10*3/uL (0.0-0.4); Hematocrit 43.1 % (37.0-47.0); Hemoglobin 14.3 g/dl (12.0-16.0); Imm Gran Abs Auto 0.04 X10*3/uL (0.00-0.03); Imm Gran Pct Auto 0.3 % (0.0-0.4); Lymphocytes Absolute Auto 3.5 X10*3/uL (1.2-4.9); Lymphocytes Percent Auto 27.4 % (20-40); Mean Corpuscular HGB Conc 33.2 g/dl (31.0-35.0); Mean Corpuscular Hemoglobin 26.1 pg (27.0-33.0); Mean Corpuscular Volume 78.8 fL (80.0-98.0); Mean Platelet Volume 10.1 fL (9.4-12.3); Monocytes Percent Auto 7.5 % (2-11); Neutrophils Percent Auto 62.5 % (45-73); Platelet Count 351 X10*3/uL (160-400); Red Blood Count 5.47 X10*6/uL (4.20-5.50); White Blood Count 12.8 X10*3/uL (4.8-10.8)
[2024-11-01 14:36] LABS: Estimated Average Glucose 111 mg/dL; Hemoglobin A1c % 5.5 % (<6.0); Total Hemoglobin (HGBA1C) 3671.2319 umol/L
[2024-11-01 14:44] LABS: Partial Thromboplastin Time 30.7 SEC (26.0-36.8); Prothrombin Time 11.1 SEC (10.9-12.4)
--- OUTSIDE RECORDS SUMMARY | 2024-11-01 14:45 | XMS_ITS | Clinical Summary ---
Author Organization [facility] ity Address [address] [place] [address] Care Team Providers Care Loan Service Officer Name Role Phone Unavailable Primary Care Provider [...]
[2024-11-01 14:48] LABS: Alanine Aminotransferase 52 U/L (0-31); Albumin Level 4.4 g/dL (3.5-5.0); Alkaline Phosphatase 97 U/L (39-117); Anion Gap 10 (12-20); Aspartate Amino Transferase 41 U/L (5-31); Bilirubin Total 0.2 mg/dL (0.0-1.0); Blood Urea Nitrogen 13 mg/dL (9-16); Calcium 10.1 mg/dL (8.4-10.2); Carbon Dioxide 23 mmol/L (22-29); Chloride 108 mmol/L (96-108); Cholesterol 134 mg/dL (<200); Estimated Glomerular Filt Rate > 60; Glucose Random 95 mg/dL (60-115); HDL Cholesterol 28 mg/dL (>40); Iron 46 mcg/dL (30-160); LDL Cholesterol Calculated 69 mg/dL (<100); Percent Iron Saturation 15 % (15-50); Potassium 4.4 mmol/L (3.3-5.1); Sodium 137 mmol/L (135-145); Total Iron Binding Capacity 299 mcg/dL (228-428); Total Protein 7.8 g/dL (6.5-8.0); Triglycerides 189 mg/dL (<150); Unsaturated Iron Binding 253 ug/dL
[2024-11-01 15:10] LABS: Ferritin 94 ng/mL (10-122)
[2024-11-02 08:35] LABS: HBS Num1 1.47 mIU/mL (0-7.99); HBc Num1 0.16 S/CO (0.00-0.79); HBsAGNum1 0.46 S/CO (0.00-0.99); Hepatitis B Core Antibody Nonreactive (Nonreactive); Hepatitis B Surface Antigen Negative (Negative); ~HepC Num1 0.19 S/CO (0.00-0.79); ~Hepatitis B Surface Antibody NONREACTIVE (Nonreactive); ~Hepatitis C Antibody Nonreactive (Nonreactive)
[2024-11-04 08:16] LABS: Hepatitis A Antibody IgG Nonreactive (Nonreactive); Hepatitis A Antibody IgM 0.23 Index (0-0.79); ~Hepatitis A Antibody IgG 0.69 S/CO (0.00-0.99); ~Hepatitis A Antibody IgM Nonreactive (Nonreactive)
== END 2024-11-01 12:34 | disposition home or self-care (01) ==
LOC: HO.CHCLDS 12:33
PROVIDERS: Visit Provider Family Medicine
DX: R74.01 Elevation of levels of liver transaminase levels (principal)
CPT/HCPCS: 36415; 80053; 80061; 82728; 83036; 83540; 85025; 85610; 85730; 86704; 86706; 86708; 86709; 86803; 87340

== ENCOUNTER 2024-12-22 14:16 | Outpatient (REF) | payer MEDICAID, SELFPAY ==
--- OUTSIDE RECORDS SUMMARY | 2024-12-22 14:28 | XMS_ITS | Clinical Summary ---
[facility] Address [address] [place] [address] Care Team Providers Care Reexaminer Name Role Phone Unavailable Primary Care Provider [...] Child Visit (3-2 1 years old) 06/19/2023 HIV Screening 06/19/2023 Hepatitis C Screening 06/19/2023 Social Influencers of Health Screening 06/19/2023 COVID-19 Vaccine (1 - 2023-2 5 season) 2024 Depression Screening 05/25/2024 Cervical Cancer Screening: P ap Smear 08/22/2024 Influenza Vaccine (#1) 2025 HIB Vaccines Aged Out No longer [...] 5 Years) and At-Risk Patients (6 to 49 Years) Aged Out No longer eligible b ased on patient's age to complete this topic RSV Immunization Patients Un leslie 20 months Aged Out No longer eligible b ased on patient's age to complete this topic Varicella Vaccines Aged Out No longer eligible based on patient's age to complete this topic
--- OUTSIDE RECORDS SUMMARY | 2024-12-22 14:28 | XMS_ITS | Clinical Summary ---
Author Organization [employer] Address [address] [facility] [address] [place] [address] Care Team Providers Care Machine Specialist Name Role Phone Rubi Cuellar MD Primary Care Provider [phone] Allergies Active Allergy Reactions Criticality Noted Date Comments Aspirin 09/10/2023 Medications * This document contains information received from the source organization and may not represent a complete record from that organization. cholecalciferol (Vitamin D-3) 25 MCG (1000 UT) tablet Take 1 tablet (25 mcg) by mouth in the morning. 90 tablet 1 4 Active famotidine (Pepcid) 40 MG tabletIndications :Heartburn Take 20 mg by mouth 2 times daily. Active Ferrous Sulfate 300 MG/6.8ML solutionIndicatio ns:Anemia, unspecified type Take 6.8 mL (300 mg) by mouth Once per day. 612 mL 2 4 Active albuterol 108 (90 Base) MCG/ACT inhaler Inhale 2 puffs every 4 (four) hours if needed for wheezing. 18 g 5 05/30/19 26 Active hydrocortisone 2.5 % creamIndications: Intertrigo Apply topically 2 times daily. Use for 2-4 weeks under left breast. 15 g 5 Active triamcinolone (Kenalog) 0.1 % creamIndications: Post-inflammatory hyperpigmentation ,Neurotic excoriations Apply topically if needed in the morning and at bedtime (pain and swelling). 80 g 3 5 Active busPIRone (Buspar) 5 MG tablet TOME 1 TABLETA POR V A ORAL DOS VECES AL D A CUANDO SEA NECESARIO 5 Active prazosin (Minipress) 1 MG capsule Take 1 mg by mouth at bedtime. 5 Active traZODone (Desyrel) 50 MG tablet take 1/2 tablet by mouth every night at bedtime 5 Active Omeprazole 20 MG tablet delayed-release Take 1 tablet (20 mg) by mouth Once per day. 90 tablet 1 5 Active SUMAtriptan (Imitrex) 100 MG tablet Take 1 tablet (100 mg) by mouth 1 (one) time if needed for migraine. 9 tablet 1 5 Active Tirzepatide-Weigh t Management (Zepbound) 5 MG/0.5ML solution auto-injector Inject 0.5 mL (5 mg) under the skin 1 (one) time per week. INJECT 5 MG UNDER THE SKIN 1 (ONE) TIME PER WEEK. DO NOT START BEFORE DECEMBER 21, 2024. 2 mL 2 Active Active Problems Problem Noted Date Diagnosed Date Class 2 obesity 10/31/2024 Transaminitis 10/31/2024 Intractable migraine without aura and without status migrainosus 10/31/2024 Skin lesion 05/30/2024 Physical exam 04/11/2024 Postinflammatory [...] of heavy menstrual bleeding. Consider referral to [facility] for assessment and management. Class 2 severe obesity due t o excess calories with serious comorbidity and body mass index (BMI) of 37.0 to 37.9 in adult 07/30/2023 Assessment & Plan (11/22/2024 9:47 AM EDT): Patient zepbound was increased to maintenance dose. Will need to cont monitoring, target weight loss in 3 months is 5-10% if not achieve consider increasing dose. Discussed calorie deficit, recommended reduction of 20-30% of maintenance calories; business systems advisor referral offered. Recommended to decrease soda and sugary beverage consumption. Recommended at least 20 g per meal of protein to assist with satiety. Recommended at least 150 min/week of moderate intensity exercise. Assessment & Plan (04/12/2024 9:43 AM EST): [...] recommended reduction of 20-30% of maintenance calories; business systems advisor referral offered. Recommended to decrease soda and sugary beverage consumption. Recommended at least 20 g per meal of protein to assist with satiety. Recommended at least 150 min/week of moderate intensity exercise. Assessment & Plan (08/01/2023 2:49 AM EST): Discussed calorie deficit, recommended reduction of 20-30% of maintenance calories; business systems advisor referral offered. Recommended to decrease soda and [...] documented hx of Depression MH services including OP Psychotherapy and psychopharmacology; who presents for Anxiety and Depression. Meal lives with her grandmother. Reported Hx of trauma in childhood, Hx of self- harm started at age 11 until 12 y/o. Currently engage in MH services at [facility], last appt with therapist was 07/18/23 and [...] services in the past 12 months) Contact [facility] team as needed Contact [facility] if a crisis episode arise. Assessment & Plan (07/22/2023 5:00 PM EST): Off meds, counseled to restart sertraline and fu with provider at [facility]. counselor in house called for addtl evaluation [...] Encounters Date Type Department Care Team Description 12/22/2024 Travel 12/19/2024 Telephone [facility] [address] [place] [address] Rubi Cuellar MD Referral 12/09/2024 Telephone [facility] [address] [place] [address] Rubi Cuellar MD Referral 12/02/2024 Telephone [facility] [address] [place] [address] Rubi Cuellar MD Prior Authorization 11/23/2024 Telephone [facility] [address] [place] [address] Rubi Cuellar MD 11/21/2024 Refill [facility] [address] [place] [phone] Rubi Cuellar MD 11/17/2024 Telephone [facility] [address] [place] [address] [phone] Rubi Cuellar MD 11/03/2024 Results Follow-Up [facility] [address] [place] [phone] Rubi Cuellar MD CBC auto differential, Lipid Panel, Standard, Prothrombin Time-INR, Additional followed-up results: 9 10/31/2024 3:45 PM EDT Office Visit [facility] [address] [place] [phone] Rubi Cuellar MD Irregular menstrual bleeding (Primary Dx); Transaminitis; Intractable migraine without aura and without status migrainosus; Class 2 severe obesity due to excess calories with serious comorbidity and body mass index (BMI) of 37.0 to 37.9 in adult ([facility]) 10/31/2024 Refill [facility] [address] [place] [phone] Rubi Cuellar MD 10/31/2024 Travel 10/21/2024 Patient Outreach [facility] [address] [place] [address] [phone] Rubi Cuellar MD Care Coordination (CHW outreach for SDOH PT-1 and food needs-referral completed /) 10/21/2024 Patient Outreach [facility] [address] [place] [phone] Rubi Cuellar MD Pre-visit Planning (SDOH screening positive and Tobacco screening negative) 10/05/2024 Patient Outreach [facility] [address] [place] [phone] Rubi Cuellar MD Care Coordination (C3/CM Outreach) from Last 3 Months Immunizations Immunization Administration Dates Next Due Influenza injectable quadrivalent preservative f ree 03/01/2020 Influenza, seasonal, injectable, preservative fr ee 04/11/2024 Tdap 07/16/2024,04/11/2024 Family History Medical History Relation Name Comments [...] Answer Date Recorded Patient Health Questionnaire-9 Score 10 10/31/2024 Patient Health Questionnaire-9 Score 10 10/31/2024 Last PHQ-9: Questionnaire Data Not on file 0 10/31/2024 Housing Stability Answer Date Recorded What is your housing situation today? I have ragini zhang 10/31/[address] you li ve. Do you have problems with any of the following? None of the above 10/31/2024 Food Insecurity Answer Date Recorded Within the past 12 months, y ou worried that your food would run out before you got money to buy more: Never True 10/31/2024 Within the past 12 months,th e food you bought just didn't last and you didn't have enough money to get more: Never True 01/2025 Transportation Answer Date Recorded In the past 12 months, has l ack of transportation kept you from medical appts, meetings, work or from getting things needed for daily living? No 10/31/2024 Utilities Answer Date Recorded In the past 12 months, has t he electric, gas, oil or water company threatened to shut off services in your home? No 10/21/2024 Depression Answer Date Recorded Patient Health Questionnaire-2 Score 4 10/31/2024 Internet Access Answer Date Recorded Internet Access Q1 Yes 10/21/2024 Internet Access Q2 Not on file 10/21/2024 Comments No Sex and Gender Information Value Date Recorded Sex Assigned at Female 04/18/2023 9:52 PM EST Legal Sex Female 9:50 PM EST Gender Identity Female 04/18/2023 9:52 PM EST Sexual Orientation Straight 08/03/2023 9: 21 AM EDT Last Filed Vital Signs Vital Sign Reading Time Taken Comments Blood Pressure 126/78 10/31/2024 3:17 PM EDT Pulse 76 10/31/2024 3:17 PM EDT Temperature 36.8 C (98.2 F) 10/31/2024 3:17 PM EDT Respiratory Rate 20 10/31/2024 3:17 PM EDT Oxygen Saturation 98% 10/31/2024 3:17 PM EDT Inhaled Oxygen Concentration - - Weight 110 kg (243 lb 6.4 oz) 10/31/2024 3:17 PM EDT Height 168 cm (5' 6.14 ) 10/31/2024 3:17 PM EDT Body Mass Index 39.12 10/31/2024 3:17 PM EDT Plan of Treatment Upcoming Encounters Date Type Department Care Team (Late st Contact Info) Description 12/22/2024 3:00 PM EDT Nutrition [facility]/NTR[facility] [address] [place] [address] Triny Garcia, RD [address] [place] [address] Class 2 severe obesity due to excess calories with serious comorbidity and body mass index (BMI) of 37.0 to 37.9 in adult ([facility]) Health Maintenance Due Date Last Done Comments Disability Screening 2003 Family Planning (PISQ) 08/22/2018 HPV Vaccines (1 - 3-dose series) 08/22/2018 Meningococcal B Vaccine (1 o f 2 - Standard) 2019 Hepatitis B Vaccines (1 of 3 - 19+ 3-dose series) 08/22/2022 Chlamydia and Gonorrhea Screening 07/22/2024 07/22/2023 Pap Smear 08/22/2024 Influenza Vaccine (#1) 2025 , 03/01/2020 Depression Monitoring 05/02/2025 10/31/2024 , 10/31/2024 Tobacco Screening 08/09/2025 08/09/2024 Alcohol/Substance Use Screening 10/31/2025 10/31/2024 COVID-19 Vaccine (3 - 2023-2 5 season) 2025 01/30/2021, 01/09/2021 Postponed from 01/24/2024 (Patient Refused) SDOH Screening 10/31/2025 10/31/2024 Lipid Panel 11/01/2029 11/01/2024, 07/30/2023 DTaP/Tdap/Td Vaccines (3 - T d or Tdap) 07/16/2034 07/16/2024, 04/11/2024 Zoster Vaccines (1 of 2) 08/22/2053 RSV Patients and Patients Aged 60 years or older (1 - 1-dose 75+ series) 08/22/2078 HIV Screening Completed 07/30/2023 Hepatitis C Screening Completed 11/01/2024 , 07/30/2023 HIB Vaccines Aged Out No longer eligi [...] Years) and At-Risk Patients (6 to 49) Years Aged Out No longer eligible b ased on patient's age to complete this topic RSV under 20 months Aged Out No longe r eligible based on patient's age to complete this topic Rotavirus Vaccines Aged Out No longer eligible based on patient's age to complete this topic Procedures Procedure Name Priority Date/Time Associated Diagnosis Comments HEPATITIS B SURFACE ANTIBODY, QUALITATIVE Routine 11/01/2024 12:34 PM EDT Transaminitis HEPATITIS B CORE AB TOTAL Routine 11/01/2024 12:34 PM EDT Transaminitis HEPATITIS B SURFACE ANTIGEN, EIA Routine 11/01/2024 12:34 PM EDT Transaminitis HEPATITIS C AB W/REFL TO HCV RNA, QN, PCR Routine 11/01/2024 12:34 PM EDT Transaminitis FERRITIN Routine 11/01/2024 12:34 PM EDT Transaminitis IRON AND TOTAL IRON BINDING CAPACITY Routine 11/01/2024 12:34 PM EDT Transaminitis COMPREHENSIVE METABOLIC PANEL Routine 11/01/2024 12:34 PM EDT Transaminitis APTT Routine 11/01/2024 12:34 PM EDT Transaminitis PROTHROMBIN TIME-INR Routine 11/01/2024 12:34 PM EDT Transaminitis LIPID PANEL, STANDARD Routine 11/01/2024 12:34 PM EDT Transaminitis HEPATITIS A IGM ANTIBODY Routine 11/01/2024 12:34 PM EDT Transaminitis HEPATITIS A ANTIBODY, TOTAL Routine 11/01/2024 12:34 PM EDT Transaminitis HEMOGLOBIN A1C Routine 11/01/2024 12:00 AM EDT Transaminitis CBC WITH AUTO DIFFERENTIAL Routine 11/01/2024 12:00 AM EDT Transaminitis HIV 1/2 ANTIGEN/ANTIBODY, FOURTH GENERATION W/RFL Routine 07/30/2023 1:53 PM EST Routine screening for STI (sexually transmitted infection) SURESWAB(R) ADVANCED BV/CT/NG, TMA Routine 07/22/2023 2:34 PM EST Acute vaginitis Irregular menstrual bleeding from Last 3 Months or Most Recently Relevant to Health Maintenance Results * Hepatitis C Antibody with Reflex to HCV, RNA, Quantitative, Real-Time PCR (11/01/2024 12:34 PM EDT) Hepatitis C Antibody Nonreactive Nonreactive [facility] Comment:Antibodies to HCV no t detected; does not exclude early acuteHCV infection. Blood Venous blood specimen / Unknown 11/01/2024 12:34 PM EDT 11/01/2024 2:14 PM EDT Rubi Cuellar MD LAB BLOOD ORDERABLES Final Re sult Performing Organization Address [facility] de Phone Number [facility] [address] [place] [phone] * Iron And Total Iron Binding Capacity (11/01/2024 12:34 PM EDT) Pathologist [facility] Iron 46 30 - 160 mcg/dL [facility] Total Iron Binding Capacity 299 228 - 428 mcg/dL [facility] Percent Iron Saturation 15 15 - 50 % [facility] Unsaturated Iron Binding 253 ug/dL [facility] Blood Venous blood specimen / Unknown 11/01/2024 12:34 PM EDT 11/01/2024 2:18 PM EDT Rubi Cuellar MD LAB BLOOD ORDERABLES Final Re sult Performing Organization Address [facility] de Phone Number [facility] [address] [place] [phone] * Hepatitis A IgM Antibody (11/01/2024 12:34 PM EDT) [facility] Hepatitis A IgM Nonreactive Nonreactive [facility] Comment:IgM antibodies to KLINE V not detected; does not exclude earlyacute or recovered HAV infection. Blood Venous blood specimen / Unknown 11/01/2024 12:34 PM EDT 11/01/2024 2:18 PM EDT Rubi Cuellar MD LAB BLOOD ORDERABLES Final Re sult Performing Organization Address [facility] de Phone Number [facility] [address] [place] [phone] * Hepatitis A Antibody, Total (11/01/2024 12:34 PM EDT) [facility] Hepatitis A Antibody IgG Nonreactive Nonreactive [facility] Blood Venous blood specimen / Unknown 11/01/2024 12:34 PM EDT 11/01/2024 2:18 PM EDT Rubi Cuellar MD LAB BLOOD ORDERABLES Final Re sult Performing Organization Address [facility] Co de Phone Number [facility] [address] [place] [phone] * Hepatitis B surface antigen, EIA (11/01/2024 12:34 PM EDT) Hepatitis B Surface Ag Negative Negative [facility] Blood Venous blood specimen / Unknown 11/01/2024 12:34 PM EDT 11/01/2024 2:14 PM EDT Rubi Cuellar MD LAB BLOOD ORDERABLES Final Re sult Performing Organization Address [facility] Co de Phone Number [facility] [address] [place] [address] [phone] * Hepatitis B Core Antibody, Total (11/01/2024 12:34 PM EDT) Hepatitis B Core Antibody Nonreactive Nonreactive [facility] Blood Venous blood specimen / Unknown 11/01/2024 12:34 PM EDT 11/01/2024 2:14 PM EDT Rubi Cuellar MD LAB BLOOD ORDERABLES Final Re sult Performing Organization Address [facility] Co de Phone Number [facility] [address] [place] [phone] * Hepatitis B Surface Antibody, Qualitative (11/01/2024 12:34 PM EDT) ~Hepatitis B Surface Antibody NONREACTIVE Nonreactive [facility] Comment:Nonreactive: < 8.00 mIU/mL Blood Venous blood specimen / Unknown 11/01/2024 12:34 PM EDT 11/01/2024 2:14 PM EDT Rubi Cuellar MD LAB BLOOD ORDERABLES Final Re sult Performing Organization Address [facility] de Phone Number [facility] [address] [place] [phone] * Partial Thromboplastin Time, Activated (APTT) (11/01/2024 12:34 PM EDT) Partial Thromboplastin Time 30.7 26.0 - 36.8 SEC [facility] Comment:For information rega rding the monitoring of direct thrombininhibitors, please refer to Pharmacy. Blood Venous blood specimen / Unknown 11/01/2024 12:34 PM EDT 11/01/2024 2:18 PM EDT Result [facility] Rubi Cuellar MD LAB BLOOD ORDERABLES Final Re sult Performing Organization Address [facility] de Phone Number [facility] [address] [place] [phone] * Prothrombin Time-INR (11/01/2024 12:34 PM EDT) Prothrombin Time 11.1 10.9 - 12.4 SEC [facility] INTERNATIONAL NORM RATIO 1.0 0.9 - 1.1 [facility] Comment:INTERNATIONAL NORMAL IZED RATIO (INR) REFERENCE RANGES Reference RangeFor patients not on anticoagulant therapy: 0.9 - 1.1INR ranges for oral anticoagulanttherapy:For prevention and treatment of venous thrombosis and pulmonary embolism: 2.0 - 3.0For acute myocardial infarction with aspirin therapy: 2.0 - 3.0For acute myocardial infarction without aspirin therapy: 3.0 - 4.0For patients with mechanical prosthetic heart valves: 2.5 - 3.5 Blood Venous blood specimen / Unknown 11/01/2024 12:34 PM EDT 11/01/2024 2:18 PM EDT Result [facility] Rubi Cuellar MD LAB BLOOD ORDERABLES Final Re sult Performing Organization Address City/[facility]/ZIP Co de Phone Number [facility] [address] [place] [phone] * Ferritin (11/01/2024 12:34 PM EDT) Ferritin 94 10 - 122 ng/mL [facility] Blood Venous blood specimen / Unknown 11/01/2024 12:34 PM EDT 11/01/2024 2:18 PM EDT us Rubi Cuellar MD LAB BLOOD ORDERABLES Final Re sult Performing Organization Address [facility] Co de Phone Number [facility] [address] [place] [phone] * (ABNORMAL) Lipid Panel, Standard (11/01/2024 12:34 PM EDT) Triglycerides 189(H) <150 mg/dL [facility] Comment:Desirable Triglyceri de: less than 150 mg/dLBorderline High Triglyceride 150-199 mg/dLHigh Triglyceride: 200-499 mg/dLVery High Triglyceride: greater than or equal to 5OO mg/dL Cholesterol 134 <200 mg/dL [facility] Comment:Desirable Cholestero l: less than 200 mg/dLBorderline High Cholesterol: 200-239 mg/dLHigh Cholesterol: greater than 239 mg/dL LDL Cholesterol Calculated 69 <100 mg/dL [facility] Comment:Desirable LDL: less than 100 mg/dLNear Optimal/Above Optimal LDL: 110- 129 mg/dLBorderline High LDL: 130-159 mg/dLHigh LDL: 160-189 mg/dLVery High LDL: greater than or equal to 190 mg/dL HDL Cholesterol 28(L) >40 mg/dL [facility] Comment:Desirable HDL: great er than 40 mg/dL Note: This HDL assay may give artificially low results in patients with liver disease. Blood Venous blood specimen / Unknown 11/01/2024 12:34 PM EDT 11/01/2024 2:18 PM EDT us Rubi Cuellar MD LAB BLOOD ORDERABLES Final Re sult Performing Organization Address City/[facility]/ZIP Co de Phone Number [facility] [address] [place] [phone] [phone] * (ABNORMAL) Comprehensive Metabolic Panel (11/01/2024 12:34 PM EDT) Sodium 137 135 - 145 mmol/L [facility] Potassium 4.4 3.3 - 5.1 mmol/L [facility] Chloride 108 96 - 108 mmol/L [facility] Carbon Dioxide 23 22 - 29 mmol/L [facility] Anion Gap 10(L) 12 - 20 [facility] Urea Nitrogen (BUN) 13 9 - 16 mg/dL [facility] Creatinine, Serum 0.63 0.5 - 1.4 mg/dL [facility] Estimated Glomerular Filt Rate >60 [facility] Comment:Chronic Kidney Disea se: Estimated GFR < 60 mL/min/1.71b6Fevver Kidney Disease: Estimated GFR < 15 mL/min/1.73m2 Glucose 95 60 - 115 mg/dL [facility] Calcium 10.1 8.4 - 10.2 mg/dL [facility] Bilirubin, Total 0.2 0.0 - 1.0 mg/dL [facility] Aspartate Amino Transferase 41(H) 5 - 31 U/L [facility] Alanine Aminotransferase 52(H) 0 - 31 U/L [facility] Total Protein 7.8 6.5 - 8.0 g/dL [facility] Albumin Level 4.4 3.5 - 5.0 g/dL [facility] Alkaline Phosphatase 97 39 - 117 U/L [facility] Blood Venous blood specimen / Unknown 11/01/2024 12:34 PM EDT 11/01/2024 2:18 PM EDT us Rubi Cuellar MD LAB BLOOD ORDERABLES Final Re sult [facility] [address] [place] [phone] * (ABNORMAL) CBC auto differential (11/01/2024 12:00 AM EDT) White Blood Count 12.8(H) 4.8 - 10.8 X10*3/uL [facility] Red Blood Count 5.47 4.20 - 5.50 X10*6/uL [facility] Hemoglobin 14.3 12.0 - 16.0 g/dl [facility] Hematocrit 43.1 37.0 - 47.0 % [facility] Mean Corpuscular Volume 78.8(L) 80.0 - 98.0 fL [facility] Mean Corpuscular Hemoglobin 26.1(L) 27.0 - 33.0 pg [facility] Mean Corpuscular HGB Conc 33.2 31.0 - 35.0 g/dl [facility] Red Cell Distribution Width 19.0(H) 11.0 - 16.0 % [facility] Platelet Count 351 160 - 400 X10*3/uL [facility] Mean Platelet Volume 10.1 9.4 - 12.3 fL [facility] Neutrophils Percent Auto 62.5 45 - 73 % [facility] Imm Gran Pct Auto 0.3 0.0 - 0.4 % [facility] Lymphocytes Percent Auto 27.4 20 - 40 % [facility] Monocytes Percent Auto 7.5 2 - 11 % [facility] Eosinophils Percent Auto 2.0 0 - 4 % [facility] Basophils Percent Auto 0.3 0 - 2 % [facility] NRBC Pct Auto 0.0 0.0 - 0.2 /100WBC [facility] Neutrophils Absolute Auto 8.0 2.0 - 8.3 x10*3/uL [facility] Imm Gran Abs Auto 0.04(H) 0.00 - 0.03 X10*3/uL [facility] Lymphocytes Absolute Auto 3.5 1.2 - 4.9 X10*3/uL [facility] Monocytes Absolute Auto 1.0 0.1 - 1.2 X10*3/uL [facility] Eosinophils Absolute Auto 0.3 0.0 - 0.4 X10*3/uL [facility] Basophils Absolute Auto 0.0 0.0 - 0.2 X10*3/uL [facility] NRBC Abs Auto 0.000 0.0 - 0.012 X10*3/uL [facility] Blood Venous blood specimen / Unknown 11/01/2024 11/01/2024 Rubi Cuellar MD LAB BLOOD ORDERABLES Final Re sult Performing Organization Address [facility] Co de Phone Number [facility] [address] [place] [phone] * Hemoglobin A1c (11/01/2024 12:00 AM EDT) Hemoglobin A1c 5.5 <6.0 % [facility] Comment:Hemoglobin A1C Refer ence Range Adults: 4.8 - 6.0 % Non diabetic: < 6.0 % Goal: < 7.0 %Additional Action Suggested: > 8.0 %Note: Hemoglobin A1c results are invalid for patients with abnormal amounts of HbF. Blood transfusions may impact the HbA1c concentration in the patient sample. Estimated Average Glucose 111 mg/dL [facility] Comment:eAG = Estimated ave rage glucose which is %A1C expressed asaverage glucose, using the formula of the Z1H-UvfotmeLtjgomo Glucose study (ADAG), Diabetes Care, Vol.31,#8,Dec. 2007 Blood Venous blood specimen / Unknown 11/01/2024 11/01/2024 Rubi Cuellar MD LAB BLOOD ORDERABLES Final Re sult Performing Organization Address [facility] Co de Phone Number [facility] [address] [place] [address] [phone] * HIV-1/2 Antigen and Antibodies, Fourth Generation, with Reflexes (07/30/2023 1:53 PM EST) HIV AB/AG Nonreactive Nonreactive [facility] Comment:HIV-1 p24 Ag and/or HIV-1/HIV-2 Ab not detected.A test result that is nonreactive does not exclude thepossibility of exposure to or infection with HIV-1 and/orHIV-2. Nonreactive results in this assay for individualswith prior exposure to HIV-1 and/or HIV-2 may be due toantigen and antibody levels that are below the limit ofdetection of this assay.The [employer] HIV Ag/Ab Combo assay result andsupplemental assay results should be interpreted inconjunction with the patient's clinical presentation,history and other laboratory results. If the results areinconsistent with clinical evidence, additional testing issuggested to confirm the result. Blood Venous blood specimen / Unknown 07/30/2023 1:53 PM EST 07/30/2023 5:22 PM EST us Rubi Cuellar MD LAB BLOOD ORDERABLES Final Re sult [facility] [address] [place] [address] [phone] * (ABNORMAL) SureSwab?? Advanced Bacterial Vaginosis (BV), CT/NG, TMA (07/22/2023 2:34 PM EST) Pathologist [facility] [place] CTNG Ref Lab NOT DETECTED NOT DETECTED [facility] NG Ref Lab NOT DETECTED NOT DETECTED [facility] Comment:For additional infor matrenato, please refer [email or web address] [email or web address]/[email or web address](This link is being provided for information/educational purposes only.)THIS TEST WAS PERFORMED AT:[facility] [place] [id number] GONZALEZ MD SureSwab 9R) ADV Bacterial Vaginosis (BV), TMA POSITIVE(A) NEGATIVE [facility] Comment:THIS TEST WAS PERFOR MED AT:[facility] [address] [id number] GONZALEZ MD 07/22/2023 2:34 PM EST 07/23/2023 1:39 PM EST Rachel Chatman MD LAB BODY FLUIDS AND STODeanna LS ORDERABLES Final Result [facility] [address] [place] [address] [phone] from Last 3 Months or Most Recently Relevant to Health Maintenance Insurance [facility] C3 Care Teams Machine Specialist Relationship Specialty Start Date End Date Rubi Cuellar MD [address] [place] [address] PCP - General Family Medicine 07/30/23 Mann Hutton [address] [place] [phone] Nurse Practitioner Psychiatry 07/23/24
[2024-12-23 10:58] LABS: Rubeola IgG (Measles) 172.00 AU/mL
[2024-12-24 21:49] LABS: TS Negative Control Passed; TS Panel A 1; TS Panel B 0; TS Positive Control Passed; TSpotTB Negative (Negative)
== END 2024-12-22 14:17 | disposition home or self-care (01) ==
LOC: HO.CHCLDS 14:16
PROVIDERS: Visit Provider Family Medicine
DX: Z00.00 Encounter for general adult medical examination without abnormal findings (principal); Z11.1 Encounter for screening for respiratory tuberculosis
CPT/HCPCS: 36415; 86481; 86735; 86762; 86765; 86787

== ENCOUNTER 2025-02-07 14:02 | Outpatient (REF) | payer MEDICAID, SELFPAY ==
--- OUTSIDE RECORDS SUMMARY | 2025-02-07 13:00 | XMS_ITS | Encounter Summary ---
Author Organization [employer] Address [address] [facility] [address] [place] [address] Care Team Providers Care Nailing Machine Operator Automatic Name Role Phone Rubi Cuellar MD Primary Care Provider [phone] Javon Marquez RN Unavailable [phone] Cher Ribera Unavailable Reason for Visit * Reason Comments CHW - Office Visit Encounter Details Date Type Department Care Team (Late st Contact Info) Description 02/07/2025 1:00 PM EDT Office Visit [facility] [address] [place], [place] [phone] Jacqueline Kelley CNM [address] [place], [place] [phone] Left ovarian cyst (Primary Dx); Irregular menstrual bleeding; Cervical cancer screening; Encntr screen for infections w sexl mode of transmiss Social History Tobacco Use Types Packs/Day Years [...] is your housing situation today? I have argini zhang 10/31/[address] you [...] Q2 Not on file 10/21/2024 Comments No Intention Date Recorded Not sure of desire to become (f inding) 02/07/2025 Sex and Gender Information Value Date Recorded Sex Assigned at Female 04/18/2023 9:52 PM EST Legal Sex Female 9:50 PM EST Gender Identity Female 04/18/2023 9:52 PM EST Sexual Orientation Straight 08/03/2023 9: 21 AM EDT documented as of this encounter Last Filed Vital Signs Vital Sign Reading Time Taken Comments Blood Pressure 120/64 02/07/2025 1:29 PM EDT Pulse 75 02/07/2025 1:29 PM EDT Temperature 36.9 C (98.5 F) 02/07/2025 1:29 PM EDT Respiratory Rate 14 02/07/2025 1:29 PM EDT Oxygen Saturation 97% 02/07/2025 1:29 PM EDT Inhaled Oxygen Concentration - - Weight 112 kg (247 lb) 02/07/2025 1:29 PM EDT Height - - Body Mass Index 39.7 12/23/2024 4:46 PM EDT documented in this encounter Functional Status * Over the last 2 weeks, how often have you been bothered by any of the following problems? Question Answer Date of Assessment Author Feeling nervous, anxious, or on edge 3 01/23 1:57 PM EDT June Bryan MA Not being able to stop or co ntrol worrying 3 02/07/2025 1:57 PM EDT June Bryan M A Worrying too much about diff erent things 2 02/07/2025 1:57 PM EDT June Bryan M A Trouble relaxing 2 02/07/2025 1:57 PM EDT June Timmons MA Being so restless that it is hard to sit still 2 02/07/2025 1:57 PM EDT June Bryan M A Becoming easily annoyed or irritable 3 01/23 1:57 PM EDT June Bryan MA Feeling afraid as if somethi ng awful might happen 3 02/07/2025 1:57 PM EDT June Bryan M A LINH-7 Total Score 18 02/07/2025 1:57 PM EDT June Bryan MA documented as of this encounter Progress Notes * Jacqueline Kelley, CHRISTIAN - 02/07/2025 1:00 PM EDT Subjective Patient ID: Mela Medrano is a 19 y.o. 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 LMP 9/9 x 5 days. Previous menses 8/11 x 7 days. Uses 2 pads during day, disposable diapers at night to avoid leaks. No nosebleeds or easy bruising. Per previous notes, followed by [facility]. Unable to see any LABORER CHEMICAL PROCESSING visit notes in [facility] but pelvic ultrasound 05/2024 with 6.7cm left simple cyst, ORADS 2, repeat ultrasound in 12 months advised. She has abdominal ultrasound tomorrow. Notes some diffuse lower abdominal pain. Normal hemoglobin/hematocrit and iron studies 10/2024. Normal hemoglobin today. 1 AMAB partner x 1y9m. Unsure about getting in the next year. Using condoms consistently. Had irregular bleeding with Nexplanon, weight gain and worsening acne with oral contraceptive pill. Open to trying another pill. Menses occasionally skips a month or so. No frequent bleeding or intermenstrual bleeding. Does notesome excess hair on face, acne on back. No pap on file. Gonorrhea/Chlamydia neg 06/2023. Agrees to pap and pap based STI testing today. Pelvic ultrasound with 3.6cm left dominant follicle 11/2023. Gonorrhea/Chlamydia neg 06/2023. Review of Systems Gastrointestinal: Negative for constipation, diarrhea, nausea and vomiting. Genitourinary: Positive for menstrual problem and pelvic pain. Negative for dyspareunia, dysuria, vaginal bleeding, vaginal discharge and vaginal pain. Objective BP 120/64 (BP Location: Left arm, Patient Position: Sitting, BP Cuff Size: Adult) Pulse 75 Temp98.5 ??F (36.9 ??C) (Oral) Resp 14 Wt 247 lb (112 kg) SpO2 97% BMI 39.70 kg/m?? 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 Constitutional: Appearance: Normal appearance. Genitourinary: General: Normal vulva. Labia: Right: No rash, tenderness, lesion or injury. Left: No rash, tenderness, lesion or injury. Vagina: Normal. No signs of injury and foreign body. No vaginal discharge, erythema, tenderness, bleeding or lesions. Cervix: No cervical motion tenderness, discharge, friability, lesion, erythema, cervical bleeding or eversion. Uterus: Normal. Not enlarged and not tender. Adnexa: Right adnexa normal and left adnexa normal. Right: No mass, tenderness or fullness. Left: No mass, tenderness or fullness. Comments: Skin tag left inner thigh Neurological: Mental Status: She is alert. Psychiatric: Mood and Affect: Mood normal. Behavior: Behavior normal. Assessment/Plan Diagnoses and all orders for this visit: Left ovarian cyst Reviewed 05/2024 ultrasound findings. Benign pelvic exam today. Would advise repeat 05/2025. Seek care urgently at ER if severe pain as cysts can sometimes twist ovary (ovarian torsion). It sounds likeultrasound tomorrow is to followup on liver. Irregular menstrual bleeding - POCT hemoglobin docked device - TSH W/Reflex to FT4; Future - Prolactin; Future - Testosterone, Total, males (Adult), IA; Future Normal hemoglobin today, reassured. Bleeding pattern does not sound excessive. Will get hormone labs in light of occasional missed menses and androgenic symptoms. Open to trial of progestin only pill. Start pill today. Take at same time daily. Continue condoms for 7 days. Side effects and danger signs reviewed. May have some breast tenderness or irregular bleeding for first few months. This is not worrisome. Report missed menses. Will rule out if so. If test negative, not worrisome if no periods while on the pill. Report headache, shortness of breath, chest pain, visual changes, abdominal pain, calf pain or jaundice. Pill check 3 months. Not currently using Zepbound. Will need to review impact on oral contraceptivepill efficacy if she resumes. Cervical cancer screening - Pap Smear Initial pap today. Reviewed indications for screening and usual followup. Will contact with results. Repeat 3y if normal. Reviewed that minor cellular changes are common, and if these are noted, we will repeat pap in 1y. Encntr screen for infections w sexl mode of transmiss - STI testing add on (NG, CT, Trich) Pap based STI testing today. Other orders - Drospirenone (Slynd) 4 MG tablet; Take 1 tablet by mouth Once per day. documented in this encounter Plan of Treatment Upcoming Encounters Date Type Department Care Team (Late st Contact Info) Description 05/04/2025 2:00 PM EST Office Visit [facility] [address] [place], [place] [phone] Jacqueline Kelley CNM [address] [place], [place] [phone] Scheduled Orders Name Type Priority Associated Diagnoses Orde r Schedule Pap Smear Pathology and Cytology Routine Cervical cancer screening Ordered: 02/07/2025 STI testing add on (NG, CT, Trich) Pathology and Cytology Routine Encntr screen for infections w sexl mode of transmiss Ordered: 02/07/2025 Prolactin Lab Routine Irregular menstrual bleeding Expected: 02/07/2025 (Approximate), Expires: 02/07/2026 Testosterone, Total, males (Adult), IA Lab Routine Irregular menstrual bleeding Expected: 02/07/2025, Expires: 02/07/2026 documented as of this encounter Procedures Procedure Name Priority Date/Time Associated Diagnosis Comments TSH W/REFLEX TO FT4 Routine 02/07/2025 2 :07 PM EDT Irregular menstrual bleeding POCT HEMOGLOBIN Routine 02/07/2025 1:38 PM EDT Irregular menstrual bleeding documented in this encounter Results * (ABNORMAL) TSH W/Reflex to FT4 (02/07/2025 2:07 PM EDT) TSH reflex Free T4 4.40(H) 0.32 - 4.0 uIU/mL [facility] Blood Venous blood specimen / Unknown 02/07/2025 2:07 PM EDT 02/07/2025 4:04 PM EDT Jacqueline Kelley [facility] LAB BLOOD ORDERABLES Misti l Result [facility] [address] [place] [phone] * POCT hemoglobin docked device (02/07/2025 1:38 PM EDT) Hemoglobin 14.6 12.0 - 15.0 QC Media Lot # [id number] Lot# Expiration Date 155 Blood 02/07/2025 1:38 PM EDT [facility] POINT OF CARE TEST ENTER/ EDIT ORDERABLES Final Result documented in this encounter Visit Diagnoses Diagnosis Left ovarian cyst- Primary Other and unspecified ovarian cyst Irregular menstrual bleeding Irregular menstrual cycle Cervical cancer screening Screening for malignant neoplasm of the cervix Encntr screen for infections w sexl mode of transmiss documented in this encounter Additional Health Concerns Assessment Noted Time PHQ-9 Depression Total Score: 10 025 4:04 PM EDT documented as of this encounter Care Teams Nailing Machine Operator Automatic Relationship Specialty Start Date End Date Rubi Cuellar MD [address] [place] [address] PCP - General Family Medicine 07/30/23 Javon Marquez RN [address] [place] [phone] Registered Nurse Family Medicine 01/06/25 Cher Ribera 01/06/25 Mann Hutton [address] [place] [phone] Nurse Practitioner Psychiatry 07/23/24 documented as of this encounter
[2025-02-07 16:11] LABS: MANUAL DIFF FLAG NO
[2025-02-07 16:12] LABS: Hematocrit 42.3 % (37.0-47.0); Hemoglobin 14.1 g/dl (12.0-16.0); Imm Gran Abs Auto 0.10 X10*3/uL (0.00-0.03); Imm Gran Pct Auto 0.7 % (0.0-0.4); Lymphocytes Absolute Auto 3.3 X10*3/uL (1.2-4.9); Mean Corpuscular HGB Conc 33.3 g/dl (31.0-35.0); Mean Corpuscular Hemoglobin 28.5 pg (27.0-33.0); Mean Corpuscular Volume 85.5 fL (80.0-98.0); NRBC Abs Auto 0.000 X10*3/uL (0.0-0.012); NRBC Pct Auto 0.0 /100WBC (0.0-0.2); Platelet Count 377 X10*3/uL (160-400); Red Blood Count 4.95 X10*6/uL (4.20-5.50); White Blood Count 14.0 X10*3/uL (4.8-10.8)
[2025-02-07 16:58] LABS: Alanine Aminotransferase 49 U/L (0-31); Albumin Level 4.1 g/dL (3.5-5.0); Alkaline Phosphatase 92 U/L (39-117); Anion Gap 12 (12-20); Aspartate Amino Transferase 32 U/L (5-31); Blood Urea Nitrogen 14 mg/dL (9-16); Calcium 9.1 mg/dL (8.4-10.2); Carbon Dioxide 24 mmol/L (22-29); Chloride 107 mmol/L (96-108); Estimated Glomerular Filt Rate > 60; Potassium 4.3 mmol/L (3.3-5.1); Sodium 139 mmol/L (135-145); Total Protein 7.8 g/dL (6.5-8.0)
[2025-02-07 16:59] LABS: Ferritin 124 ng/mL (10-122)
--- OUTSIDE RECORDS SUMMARY | 2025-02-07 17:49 | XMS_ITS | Encounter Summary ---
Author Organization [employer] Address [address] [facility] [address]t [place] [address] Care Team Providers Care Zigzag Elastic Attacher Name Role Phone Rubi Cuellar MD Primary Care Provider [phone] Javon Marquez RN Unavailable [phone] Cher Ribera Unavailable Reason for Visit * Reason Onset Date Comments Prior Authorization 12/02/2024 Encounter Details Date Type Department Care Team ([facility] st Contact Info) Description 12/02/2024 Telephone [facility] [address] [place], [place] [phone] Rubi Cuellar MD [address] [place] [address] Prior Authorization Social History Tobacco Use Types Packs/Day Years [...] encounter Miscellaneous Notes * Telephone Encounter - Pedrito Alvarez - 12/02/2024 11:47 AM EDT Script for Tirzepatide-Weight Management (Zepbound) 5 MG/0.5ML solution auto- injector requires a prior authorization. documented in this encounter Plan of Treatment Upcoming Encounters Date Type Department Care Team (Late st Contact Info) Description 05/04/2025 2:00 PM EST Office Visit [facility] [address] [place] [address] Jacqueline Kelley CNM [address] [place] [address] documented as of this encounter Visit Diagnoses Not on filedocumented in this encounter Additional Health Concerns Assessment Noted Time PHQ-9 Depression Total Score: 10 025 4:04 PM EDT documented as of this encounter Care Teams Zigzag Elastic Attacher Relationship Specialty Start Date End Date Rubi Cuellar MD [address] [place] [address] PCP - General Family Medicine 07/30/23 Javon Marquez, RN [address] [place] [phone] Registered Nurse Family Medicine 01/06/25 Cher Ribera 01/06/25 Mann Hutton [address] [place] [phone] Nurse Practitioner Psychiatry 07/23/24 documented as of this encounter
--- OUTSIDE RECORDS SUMMARY | 2025-02-07 17:49 | XMS_ITS ---
Author Organization [employer] Address [address] [place] [address] [address] [place] [address] Care Team Providers Care Nut Orchardist Name Role Phone Rubi Cuellar MD Primary Care Provider Javon Maruqez RN Unavailable [phone] Cher Ribera Unavailable CHW Complex Status:Outreach In Progress (Enrolling) Start date:01/06/2025 Enrollment reason:ADT Feed Overview [facility] 01/05/25 Case Team Name Relationship Phone Cher Ribera(Responsible Staff) Continued Care and Services Coordination
--- OUTSIDE RECORDS SUMMARY | 2025-02-07 17:49 | XMS_ITS | Clinical Summary ---
Author Organization [employer] Address [address] [facility] [address] [place] [address] Care Team Providers Care Individual Small Group Instructor Name Role Phone Rubi Cuellar MD Primary Care Provider [phone] Javon Marquez RN Unavailable [phone] Cher Ribera Unavailable Allergies Active Allergy Reactions Criticality Noted Date [...] wheezing. 18 g 05/30/19 25 026 Active hydrocortisone 2.5 % creamIndications :Intertrigo Apply topically 2 times daily. Use for 2-4 weeks under left breast. 15 g 05/30/19 25 Active triamcinolone (Kenalog) 0.1 % creamIndications :Post-inflammato ry hyperpigmentatio n,Neurotic excoriations Apply topically if needed in the morning and at bedtime (pain and swelling). 80 g 3 08/10/19 25 Active busPIRone (Buspar) 5 MG tablet TOME 1 TABLETA POR V A ORAL DOS VECES AL D A CUANDO SEA NECESARIO 10/29/19 25 Active prazosin (Minipress) 1 MG capsule Take 1 mg by mouth at bedtime. 10/29/19 25 Active traZODone (Desyrel) 50 MG tablet take 1/2 tablet by mouth every night at bedtime 10/29/19 25 Active Omeprazole 20 MG tablet delayed-release Take 1 tablet (20 mg) by mouth Once per day. 90 tablet 1 11/01/19 25 Active Tirzepatide-Weig ht Management (Zepbound) 5 MG/0.5ML solution auto-injector Inject 0.5 mL (5 mg) under the skin 1 (one) time per week. INJECT 5 MG UNDER THE SKIN 1 (ONE) TIME PER WEEK. DO NOT START BEFORE DECEMBER 21, 2024. 2 mL 2 11/22/19 25 Active SUMAtriptan (Imitrex) 100 MG tablet TAKE 1 TABLET (100 MG) BY MOUTH 1 (ONE) TIME IF NEEDED FOR MIGRAINE. 9 tablet 1 01/10/20 25 Active Drospirenone (Slynd) 4 MG tablet Take 1 tablet by mouth Once per day. 28 tablet 11 02/08/20 25 Active SUMAtriptan (Imitrex) 100 MG tablet Take 1 tablet (100 mg) by mouth 1 (one) time if needed for migraine. 9 tablet 1 11/01/19 25 025 Discontinued Active Problems Problem Noted Date Diagnosed Date Left ovarian cyst 02/07/2025 Overview (02/07/2025): 6.7cm left ovarian simple cyst on ultrasound 05/2024. ORADS 2, 12 m followup advised, due 05/2025 Class 2 obesity 10/31/2024 Transaminitis 10/31/2024 Intractable [...] of heavy menstrual bleeding. Consider referral to FERMENTATION OPERATOR for assessment and management. Class 2 severe [...] recommended reduction of 20-30% of maintenance calories; infrastructure director referral offered. Recommended to decrease soda and [...] recommended reduction of 20-30% of maintenance calories; infrastructure director referral offered. Recommended to decrease soda and sugary beverage consumption. Recommended at least 20 g per meal of protein to assist with satiety. Recommended at least 150 min/week of moderate intensity exercise. Assessment & Plan (08/01/2023 2:49 AM EST): Discussed calorie deficit, recommended reduction of 20-30% of maintenance calories; infrastructure director referral offered. Recommended to decrease soda and [...] documented hx of Depression MH services including [facility] Psychotherapy and psychopharmacology; who presents for Anxiety and Depression. Mela lives with her grandmother. Reported Hx of trauma in childhood, Hx of self- harm started at age 11 until 12 y/o. Currently engage in MH services at [facility], last appt with therapist was 07/18/23 [...] services in the past 12 months) Contact [facility] team as needed Contact [facility] if a crisis episode arise. Assessment & Plan (07/22/2023 5:00 PM EST): Off meds, counseled to restart sertraline and fu with MH provider at [facility]. counselor in house called for addtl evaluation [...] Encounters Date Type Department Care Team Description 02/07/2025 1:00 PM EDT Office Visit [address] [address] Jacqueline Kelley CNM Left ovarian cyst (Primary Dx); Irregular menstrual bleeding; Cervical cancer screening; Encntr screen for infections w sexl mode of transmiss 02/07/2025 Travel 02/06/2025 Patient Outreach [address] [address] Rubi Cuellar MD Care Coordination ([facility]3 -[facility] Cher Ribera telephone call outreach) 02/06/[address] [address] Jacqueline Kelley CNM chart prep 02/01/[address] [facility] [address] [place] [phone] Rubi Cuellar MD Nurse Triage 01/17/2025 Patient Outreach [address] [address] Rubi Cuellar MD Care Coordination ([facility]3 -[facility] Cher Ribera telephone call outreach) 01/10/2025 Patient Outreach [address] [address] Rubi Cuellar MD 01/08/[address] [facility] [address] [place] [address] Rubi Cuellar MD 01/06/2025 Patient Outreach [address] [address] Rubi Cuellar MD Care Coordination (C3 [facility] Cher Ribera chart review ) 01/06/2025 Patient Outreach [address] [address] Rubi Cuellar MD Care Coordination ([facility]- chart review) 01/06/2025 Patient Outreach [address] [address] Rubi Cuellar MD 01/05/[address] [address] Rubi Cuellar MD Nurse Triage 12/26/2024 Results Follow-Up [facility] [address] [place] [address] Rubi Cuellar MD Measles, Mumps, and Rubella (MMR) Antibodies (IgG) Panel, Immune Status, Varicella zoster antibody, IgG, T-SPOT .TB 12/26/[address] [facility] [address] [place] [address] Rubi Cuellar MD 12/22/2024 3:00 PM EDT Nutrition [facility]/NTRN [address] [place] [address] Triny Garcia, MORRIS Class 2 severe obesity due to excess calories with serious comorbidity and body mass index (BMI) of 37.0 to 37.9 in adult ([facility]) 12/22/2024 Travel 12/19/[address] [address] Rubi Cuellar MD Referral 12/09/[address] [address] Rubi Cuellar MD Referral 12/02/[address] [facility] [address] [place] [address] Rubi Cuellar MD Prior Authorization 11/23/[address] [facility] [address] [place] [address] Rubi Cuellar MD 11/21/[address] [facility] [address] [place] [address] Rubi Cuellar MD 11/17/2024 Telephone [facility] [address] [place], [place] [phone] Rubi Cuellar MD from Last 3 Months Immunizations Immunization Administration [...] (247 lb) 02/07/2025 1:29 PM EDT Height 168 cm (5' 6.14 ) 12/23/2024 4:46 PM EDT Body Mass Index 39.7 12/23/2024 4:46 PM EDT Plan of Treatment Upcoming Encounters Date Type Department Care Team (Late st Contact Info) Description 05/04/2025 2:00 PM EST Office Visit [facility] [address] [place], [place] [phone] Jacqueline Kelley, [facility] [address] [place] [address] Health Maintenance Due Date Last Done Comments HPV Vaccines (1 - 3-dose series) 08/22/2018 Meningococcal B Vaccine (1 o f 2 - Standard) 2019 Hepatitis B Vaccines (1 of 3 - 19+ 3-dose series) 08/22/2022 Chlamydia and Gonorrhea Screening 07/22/2024 07/22/2023 Pap Smear 08/22/2024 COVID-19 Vaccine (3 - 2024-2 6 season) 2025 01/30/2021, 01/09/2021 Influenza Vaccine (#1) 2025 , 03/01/2020 Depression Monitoring 05/02/2025 10/31/2024 , 10/31/2024 Tobacco Screening 08/09/2025 08/09/2024 Alcohol/Substance Use Screening 10/31/2025 10/31/2024 SDOH Screening 10/31/2025 10/31/2024 Disability Screening 02/07/2026 02/07/2025 Family Planning (PISQ) 02/07/2026 02/07/2025 Lipid Panel 11/01/2029 11/01/2024, 07/30/2023 DTaP/Tdap/Td Vaccines [...] Procedure Name Priority Date/Time Associated Diagnosis Comments FERRITIN Routine 02/07/2025 2:07 PM EDT COMPREHENSIVE METABOLIC PANEL Routine 02/07/2025 2:07 PM EDT CBC WITH AUTO DIFFERENTIAL Routine 02/07/2025 2:07 PM EDT TSH W/REFLEX TO FT4 Routine 02/07/2025 2 :07 PM EDT Irregular menstrual bleeding POCT HEMOGLOBIN Routine 02/07/2025 1:38 PM EDT Irregular menstrual bleeding T-SPOT(R).TB Routine 12/22/2024 2:17 PM EDT VARICELLA ZOSTER ANTIBODY, IGG Routine 12/22/2024 2:17 PM EDT MEASLES, MUMPS, AND RUBELLA (MMR) AB (IGG) PANEL, IMMUNE STATUS Routine 12/22/2024 2:17 PM EDT HEPATITIS C AB W/REFL TO HCV RNA, QN, PCR Routine 11/01/2024 12:34 PM EDT Transaminitis LIPID PANEL, STANDARD Routine 11/01/2024 12:34 PM EDT Transaminitis HIV 1/2 ANTIGEN/ANTIBODY, FOURTH GENERATION W/RFL Routine 07/30/2023 1:53 PM EST Routine screening for STI (sexually transmitted infection) SURESWAB(R) ADVANCED BV/CT/NG, TMA Routine 07/22/2023 2:34 PM EST Acute vaginitis Irregular menstrual bleeding from Last 3 Months or Most Recently Relevant to Health Maintenance Results * (ABNORMAL) TSH W/Reflex to FT4 (02/07/2025 2:07 PM EDT) TSH reflex Free T4 4.40(H) 0.32 - 4.0 uIU/mL [facility] Blood Venous blood specimen / Unknown 02/07/2025 2:07 PM EDT 02/07/2025 4:04 PM EDT us Jacqueline BERUMEN LAB BLOOD ORDERABLES Misti mckeon Result [facility] [address] [place] [phone] * (ABNORMAL) CBC auto differential (02/07/2025 2:07 PM EDT) White Blood Count 14.0(H) 4.8 - 10.8 X10*3/uL [facility] Red Blood Count 4.95 4.20 - 5.50 X10*6/uL [facility] Hemoglobin 14.1 12.0 - 16.0 g/dl [facility] Hematocrit 42.3 37.0 - 47.0 % [facility] Mean Corpuscular Volume 85.5 80.0 - 98.0 fL [facility] Mean Corpuscular Hemoglobin 28.5 27.0 - 33.0 pg [facility] Mean Corpuscular HGB Conc 33.3 31.0 - 35.0 g/dl [facility] Red Cell Distribution Width 13.2 11.0 - 16.0 % [facility] Platelet Count 377 160 - 400 X10*3/uL [facility] Mean Platelet Volume 10.3 9.4 - 12.3 fL [facility] Neutrophils Percent Auto 66.9 45 - 73 % [facility] Imm Gran Pct Auto 0.7(H) 0.0 - 0.4 % [facility] Lymphocytes Percent Auto 23.8 20 - 40 % [facility] Monocytes Percent Auto 6.1 2 - 11 % [facility] Eosinophils Percent Auto 2.1 0 - 4 % [facility] Basophils Percent Auto 0.4 0 - 2 % [facility] NRBC Pct Auto 0.0 0.0 - 0.2 /100WBC [facility] Neutrophils Absolute Auto 9.4(H) 2.0 - 8.3 x10*3/uL [facility] Imm Gran Abs Auto 0.10(H) 0.00 - 0.03 X10*3/uL [facility] Lymphocytes Absolute Auto 3.3 1.2 - 4.9 X10*3/uL [facility] Monocytes Absolute Auto 0.9 0.1 - 1.2 X10*3/uL [facility] Eosinophils Absolute Auto 0.3 0.0 - 0.4 X10*3/uL [facility] Basophils Absolute Auto 0.1 0.0 - 0.2 X10*3/uL [facility] NRBC Abs Auto 0.000 0.0 - 0.012 X10*3/uL [facility] 02/07/2025 2:07 PM EDT 02/07/2025 4:04 PM EDT Generic External Data Provider LAB BLOOD ORDERAB LES Final Result Performing Organization Address [facility] Co de Phone Number [facility] [address] [place] [phone] * (ABNORMAL) Ferritin (02/07/2025 2:07 PM EDT) Ferritin 124(H) 10 - 122 ng/mL [facility] 02/07/2025 2:07 PM EDT 02/07/2025 4:04 PM EDT Generic External Data Provider LAB BLOOD ORDERAB LES Final Result Performing Organization Address [facility] de Phone Number [facility] [address] [place] [phone] * (ABNORMAL) Comprehensive Metabolic Panel (02/07/2025 2:07 PM EDT) Sodium 139 135 - 145 mmol/L [facility] Potassium 4.3 3.3 - 5.1 mmol/L [facility] Chloride 107 96 - 108 mmol/L [facility] Carbon Dioxide 24 22 - 29 mmol/L [facility] Anion Gap 12 12 - 20 [facility] Urea Nitrogen (BUN) 14 9 - 16 mg/dL [facility] Creatinine, Serum 0.71 0.5 - 1.4 mg/dL [facility] Estimated Glomerular Filt Rate >60 [facility] Comment:Chronic Kidney Disea se: Estimated GFR < 60 mL/min/1.71p2Ctlepj Kidney Disease: Estimated GFR < 15 mL/min/1.73m2 Glucose 118(H) 60 - 115 mg/dL [facility] Calcium 9.1 8.4 - 10.2 mg/dL [facility] Bilirubin, Total 0.2 0.0 - 1.0 mg/dL [facility] Aspartate Amino Transferase 32(H) 5 - 31 U/L [facility] Alanine Aminotransferase 49(H) 0 - 31 U/L [facility] Total Protein 7.8 6.5 - 8.0 g/dL [facility] Albumin Level 4.1 3.5 - 5.0 g/dL [facility] Alkaline Phosphatase 92 39 - 117 U/L [facility] 02/07/2025 2:07 PM EDT 02/07/2025 4:04 PM EDT Generic External Data Provider LAB BLOOD ORDERAB LES Final Result [facility] [address] [place] [phone] * POCT hemoglobin docked device (02/07/2025 1:38 PM EDT) Pathologist [facility] Hemoglobin 14.6 12.0 - 15.0 QC Media Lot # [id number] Lot# Expiration Date [id number] Blood 02/07/2025 1:38 PM EDT Jacqueline Kelley CNM POINT OF CARE TEST ENTER/ EDIT ORDERABLES Final Result * T-SPOT??.TB (12/22/2024 2:17 PM EDT) T Spot TB Negative Negative [facility] Comment:A negative test resu lt does not exclude the possibilityof exposure to or infection with Mycobacteriumtuberculosis (M. tuberculosis). Patients with recentexposure to TB infected individuals exhibiting anegative T-SPOT.TB result should be considered forretesting within 6 weeks or if other relevant clinicalsymptoms indicate. Results from T-SPOT.TB testing mustbe used in conjunction with each individual'sepidemiological history, current medical status,and results of other diagnostic evaluations.The T-SPOT.TB test is qualitative and results arereported as positive, borderline, or negative, giventhat the test controls perform as expected. In linewith the Centers for Disease Control and Prevention's2010 recommendation to report quantitative measurementsalongside the qualitative result, the laboratoryprovides spot counts for informational purposes only.The T-SPOT.TB test should not be interpreted as aquantitative test. TS PANEL A 1 [facility] TS PANEL B 0 [facility] Negative Control Passed [facility] Positive Control Passed [facility] Comment:For additional infor matrenato, please refer tohttp://education.[employer]/faq/VMT380(This link is being provided for informational/educational purposes only.)THIS TEST WAS PERFORMED AT:[employer] [id number] [place] [address]EVTRHPLESTUARDO CLINE MD,PHD 12/22/2024 2:17 PM EDT 12/22/2024 5:53 PM EDT us Rubi Cuellar MD LAB BLOOD ORDERABLES Final Re sult [facility] [address] [place] [phone] * Measles, Mumps, and Rubella (MMR) Antibodies??(IgG) Panel, Immune Status (12/22/2024 2:17 PM EDT) Mumps Virus IgG Antibody 64.60 AU/mL [facility] Comment:AU/mL Interpretatio n------- <9.00 Not consistent with immunity9.00-10.99 Equivocal>10.99 Consistent with immunityThe presence of mumps IgG antibody suggests immunizationor past or current infection with mumps virus. Rubella IgG Antibody 1.82 Index [facility] Comment:Index Interpretation ----- <0.90 Not consistent with immunity 0.90-0.99 Equivocal > or = 1.00 Consistent with immunityThe presence of rubella IgG antibody suggestsimmunization or past or current infection withrubella virus.THIS TEST WAS PERFORMED AT:[email or web address] [place] [id number] GONZALEZ MD Rubeola IgG (Measles) 172.00 AU/mL [facility] Comment:AU/mL Interpretation ----- <13.50 Not consistent with errzgife23.50-16.49 Equivocal>16.49 Consistent with immunityThe presence of measles IgG suggests immunization orpast or current infection with measles virus.For additional information, please refer tohttp://education.[employer]/faq/HRT012(This link is being provided for informational/educational purposes only.) 12/22/2024 2:17 PM EDT 12/22/2024 5:53 PM EDT us Rubi Cuellar MD LAB BLOOD ORDERABLES Final Re sult [facility] [address] [place] [phone] [phone] * Varicella zoster antibody, IgG (12/22/2024 2:17 PM EDT) Pathologist [facility] Varicella IgG Antibody 7.23 S/CO [facility] Comment:Signal to Cut-off S/ CO Interpretation --------- <1.00 Negative - Antibody not detected > or = 1.00 Positive - Antibody detected A positive result indicates that the patient has antibody to VZV but does not differentiate between an active or past infection. The clinical diagnosis must be interpreted in conjunction with the clinical signs and symptoms of the patient. This assay reliably measures immunity due to previous infection but may not be sensitive enough to detect antibodies induced by vaccination. Thus, a negative result in a vaccinated individual does not necessarily indicate susceptibility to VZV infection. A more sensitive test for vaccination-induced immunity is Varicella Zoster Virus Antibody Immunity Screen, ACIF.THIS TEST WAS PERFORMED AT:[email or web address] [place] [phone] GONZALEZ MD 12/22/2024 2:17 PM EDT 12/22/2024 5:53 PM EDT Rubi Cuellar MD LAB BLOOD ORDERABLES Final Re sult Performing Organization Address [facility] Co de Phone Number [facility] [address] [place] [phone] * Hepatitis C Antibody with Reflex to HCV, RNA, Quantitative, Real-Time PCR (11/01/2024 12:34 PM EDT) Hepatitis C Antibody Nonreactive Nonreactive [facility] Comment:Antibodies to HCV no t detected; does not exclude early acuteHCV infection. Blood Venous blood specimen / Unknown 11/01/2024 12:34 PM EDT 11/01/2024 2:14 PM EDT us Rubi Cuellar MD LAB BLOOD ORDERABLES Final Re sult Performing Organization Address [facility] Co de Phone Number [facility] [address] [place] [phone] * (ABNORMAL) Lipid Panel, Standard (11/01/2024 12:34 PM EDT) Triglycerides 189(H) <150 mg/dL [facility] Comment:Desirable Triglyceri de: less than 150 mg/dLBorderline High Triglyceride 150-199 mg/dLHigh Triglyceride: 200-499 mg/dLVery High Triglyceride: greater than or equal to 5OO mg/dL Cholesterol 134 <200 mg/dL [facility] Comment:Desirable Cholestero l: less than 200 mg/dLBorderline High Cholesterol: 200-239 mg/dLHigh Cholesterol: greater than 239 mg/dL LDL Cholesterol Calculated 69 <100 mg/dL [facility] Comment:Desirable LDL: less than 100 mg/dLNear Optimal/Above Optimal LDL: 110- 129 mg/dLBorderline High LDL: 130-159 mg/dLHigh LDL: 160-189 mg/dLVery High LDL: greater than or equal to 190 mg/dL HDL Cholesterol 28(L) >40 mg/dL [facility] Comment:Desirable HDL: great er than 40 mg/dL Note: This HDL assay may give artificially low results in patients with liver disease. Blood Venous blood specimen / Unknown 11/01/2024 12:34 PM EDT 11/01/2024 2:18 PM EDT us Rubi Cuellar MD LAB BLOOD ORDERABLES Final Re sult Performing Organization Address [facility] Co de Phone Number [facility] [address] [place] [phone] * HIV-1/2 Antigen and Antibodies, Fourth Generation, with Reflexes (07/30/2023 1:53 PM EST) HIV AB/AG Nonreactive Nonreactive [facility] Comment:HIV-1 p24 Ag and/or HIV-1/HIV-2 Ab not detected.A test result that is nonreactive does not exclude thepossibility of exposure to or infection with HIV-1 and/orHIV-2. Nonreactive results in this assay for individualswith prior exposure to HIV-1 and/or HIV-2 may be due toantigen and antibody levels that are below the limit ofdetection of this assay.The [employer] HIV Ag/Ab Combo assay result andsupplemental assay results should be interpreted inconjunction with the patient's clinical presentation,history and other laboratory results. If the results areinconsistent with clinical evidence, additional testing issuggested to confirm the result. Blood Venous blood specimen / Unknown 07/30/2023 1:53 PM EST 07/30/2023 5:22 PM EST us Rubi Cuellar MD LAB BLOOD ORDERABLES Final Re sult Performing Organization Address [facility]/ZIP Co de Phone Number [facility] [address] [place] [phone] * (ABNORMAL) SureSwab?? Advanced Bacterial Vaginosis (BV), CT/NG, TMA (07/22/2023 2:34 PM EST) CTNG Ref Lab NOT DETECTED NOT DETECTED [facility] NG Ref Lab NOT DETECTED NOT DETECTED [facility] Comment:For additional infor tiffanyrenato, please refer totps://education.[employer]/faq/PNT111(This link is being provided for information/educational purposes only.)THIS TEST WAS PERFORMED AT:[email or web address] [place] [phone] GONZALEZ MD SureSwab 9R) ADV Bacterial Vaginosis (BV), TMA POSITIVE(A) NEGATIVE [facility] Comment:THIS TEST WAS PERFOR MED AT:[email or web address] [place] [phone] GONZALEZ MD 07/22/2023 2:34 PM EST 07/23/2023 1:39 PM EST us Rachel Chatman MD LAB BODY FLUIDS AND STOO LS ORDERABLES Final Result [facility] [address] [place] [phone] from Last 3 Months or Most Recently Relevant to Health Maintenance Insurance [facility] C3 Care Teams Individual Small Group Instructor Relationship Specialty Start Date End Date Rubi Cuellar MD [address] [place] [address] PCP - General Family Medicine 07/30/23 Javno Marquez, RN [address] [place] [address] Registered Nurse Family Medicine 01/06/25 Cher Ribera 01/06/25 Mann Hutton [address] [place] [phone] Nurse Practitioner Psychiatry 07/23/24
--- OUTSIDE RECORDS SUMMARY | 2025-02-07 17:49 | XMS_ITS ---
Author Organization [employer] Address [address] [place] [address] 7 [place] [address] Care Team Providers Care Advanced Solutions Architect Name Role Phone Rubi Cuellar MD Primary Care Provider [phone] Javon Marquez RN Unavailable [phone] Cher Ribera Unavailable CM Complex Status:Outreach In Progress (Enrolling) Start date:01/06/2025 Enrollment reason:ADT Feed Overview [facility] ED 01/05/25 Case Team Name Relationship Phone Javon Marquez RN(Responsible Staff) Registered [facility] [phone] Continued Care and Services Coordination
--- OUTSIDE RECORDS SUMMARY | 2025-02-07 17:49 | XMS_ITS | Encounter Summary ---
Author Organization [employer] Address [address] [facility] 7t [place] [address] Care Team Providers Care Floor Technician Name Role Phone Rubi Cuellar MD Primary Care Provider [phone] Javon Marquez RN Unavailable [phone] Cher Ribera Unavailable Reason for Visit * Reason Comments Care Coordination C3 -Dale emmanuel telephone call outreach Encounter Details Date Type Department Care Team (Latest Contact Info) Description 02/06/2025 Patient Outreach [facility] [address] [place] [address] Rubi Cuellar MD [address] [place] [address] Care Coordination (C3 MAXIMILIANO Ribera telephone call outreach) Social History Tobacco Use Types Packs/Day Years [...] AM EDT documented as of this encounter Progress Notes * Cher Ribera - 02/06/2025 3:32 PM EDT CHW Cher Ribera, placed outbound call to patient in regards to offer services. CHW introducing herself from [facility] CM Department with CHW's name, department and direct contact number requesting call back. Will re-attempt to contact within 5 days. and address not confirmed. documented in this encounter Plan of Treatment Upcoming Encounters Date Type Department Care Team (Late st Contact Info) Description 05/04/2025 2:00 PM EST Office Visit [facility] [address] [place], [place] [phone] Jacqueline Kelley CNM [address] [place] [address] documented as of this encounter Visit Diagnoses Not on filedocumented in this encounter Additional Health Concerns Assessment Noted Time PHQ-9 Depression Total Score: 10 025 4:04 PM EDT documented as of this encounter Care Teams Floor Technician Relationship Specialty Start Date End Date Rubi Cuellar MD [address] [place] [address] PCP - General Family Medicine 07/30/23 Javon Marquez, GORDON [address] [place] [address] Registered Nurse Family Medicine 01/06/25 Cher Ribera 01/06/25 Mann Hutton [address] [place] [phone] Nurse Practitioner Psychiatry 07/23/24 documented as of this encounter
--- OUTSIDE RECORDS SUMMARY | 2025-02-07 17:49 | XMS_ITS | Encounter Summary ---
Author Organization [employer] Address [address] [facility] 7t [place] [address] Care Team Providers Care Endless Track Vehicle Supervisor Name Role Phone Rubi Cuellar MD Primary Care Provider [phone] Javon Marquez RN Unavailable Cher iRbera Unavailable Reason for Visit * Reason Onset Date Comments chart prep 02/06/2025 Encounter Details Date Type Department Care Team (Late st Contact Info) Description 02/06/2025 Telephone [facility] [address] [place], [place] [phone] Jacqueline Kelley CNM [address] [place], [place] [phone] chart prep Social History Tobacco Use Types Packs/Day Years [...] encounter Miscellaneous Notes * Telephone Encounter - Kurtis Snyder MA - 02/06/2025 10:09 AM EDT Chart Prep Labs: not applicable Images: not applicable Referrals: not applicable Vaccines due: Covid, Flu, Hep B, MCV4, and HPV Screenings: pap smear and STI screening Overdue care gaps: LINH-7 and Disability screen documented in this encounter Plan of Treatment Upcoming Encounters Date Type Department Care Team (Late st Contact Info) Description 05/04/2025 2:00 PM EST Office Visit [facility] [address] [place] [address] Jacqueline Kelley CNM [address] [place] [address] documented as of this encounter Visit Diagnoses Not on filedocumented in this encounter Additional Health Concerns Assessment Noted Time PHQ-9 Depression Total Score: 10 025 4:04 PM EDT documented as of this encounter Care Teams Endless Track Vehicle Supervisor Relationship Specialty Start Date End Date Rubi Cuellar MD [address] [place] [address] PCP - General Family Medicine 07/30/23 Javon Marquez, GORDON [address] [place] [address] Registered Nurse Family Medicine 01/06/25 Cher Ribera 01/06/25 Mann Hutton [address] [place] [phone] Nurse Practitioner Psychiatry 07/23/24 documented as of this encounter
--- OUTSIDE RECORDS SUMMARY | 2025-02-07 17:49 | XMS_ITS | Clinical Summary ---
Author Organization [facility] Address [address] [place] [address] Care Team Providers Care Harp Regulator Name Role Phone Unavailable Primary Care Provider [...] 06/19/2023 Social Influencers of Health Screening 06/19/2023 Depression Screening 05/25/2024 Cervical Cancer Screening: P ap Smear 08/22/2024 COVID-19 Vaccine (1 - 2023-2 5 season) 2025 Influenza Vaccine (#1) 2025 HIB Vaccines Aged [...]
--- OUTSIDE RECORDS SUMMARY | 2025-02-07 17:49 | XMS_ITS | Encounter Summary ---
Author Organization [employer] Address [address] [facility] 7t [place] [address] Care Team Providers Care Round Corner Cutter Operator Name Role Phone Rubi Cuellar MD Primary Care Provider [phone] Javon Marquez RN Unavailable [phone] Cher Ribera Unavailable Encounter Details Date Type Department Care Team (Latest Contact Info) Description 02/07/2025 Travel Social History Tobacco Use Types Packs/Day Years [...] AM EDT documented as of this encounter Functional Status * Over the [...] [place] documented as of this encounter Plan of Treatment Upcoming Encounters Date Type Department Care Team (Late st Contact Info) Description 05/04/2025 2:00 PM EST Office Visit [facility] [address] [place] [address] Jacqueline Kelley CNM [address] [place] [address] documented as of this encounter Visit Diagnoses Not on filedocumented in this encounter Additional Health Concerns Assessment Noted Time PHQ-9 Depression Total Score: 10 025 4:04 PM EDT documented as of this encounter Care Teams Round Corner Cutter Operator Relationship Specialty Start Date End Date Rubi Cuellar MD [address] [place] [address] PCP - General Family Medicine 07/30/23 Javon Marquez, RN [address] [place] [address] Registered Nurse Family Medicine 01/06/25 Cher Ribera 01/06/25 Mann Hutton [address] [place] [phone] Nurse Practitioner Psychiatry 07/23/24 documented as of this encounter
--- OUTSIDE RECORDS SUMMARY | 2025-02-07 17:49 | XMS_ITS | Encounter Summary ---
Author Organization [employer] Address [address] [facility] 7t [place] [address] Care Team Providers Care Shredding Floor Equipment Operator Name Role Phone Rubi uCellar MD Primary Care Provider Javon Marquez RN Unavailable [phone] Cher Ribera Unavailable Reason for Visit * Reason Onset Date Comments Nurse Triage 01/05/2025 Encounter Details Date Type Department Care Team (Late st Contact Info) Description 01/05/2025 Telephone [facility] [address] [place] [address] Rubi Cuellar MD [address] [place] [address] Nurse Triage Social History Tobacco Use Types Packs/Day Years [...] encounter Miscellaneous Notes * Telephone Encounter - Radha Keith LPN - 01/05/2025 4:04 PM EDT Triage call returned with BLS # [id number] Renee. Patient called reporting numbness of both hands no accident or injury and it is both hands with onset around 12noon today. 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 Patient reports ' nails look funny describes nailbeds darker than normal. Reports that she did have some increased asthma symptoms earlier and has used her inhaler. Has no acute shortness of breath. Is standing outside of her hospital. Advised to seek evaluation at ED now. Patient in agreement with plan.Reviewed with pt to contact PCP office after ERevaluation for follow up appt. Pt verbalized understanding and agrees. Forwarded to PCP and team as FYI to follow up PRN Multiple (2) protocols were used on this call. Disposition for Call: Go to ED Now Protocol Used: Hand Pain (Adult) Protocol-Based Disposition: See in Office or Video Visit Today or Tomorrow Override (Final) Disposition: Go to ED Now Override Reason: Nurse judgment Override Notes: Patient reports nailbeds are darker than normal Positive Triage Question: * Numbness (i.e., loss of sensation) in hand or fingers * All higher-acuity triage questions were negative Care Advice Discussed: * Pain Medicines * Reasons To Call Back - You become worse Protocol Used: No Protocol Available (Adult) Protocol-Based Disposition: Go to ED/[facility] Now (or to Office Now per Policy) Video visit not offered Positive Triage Questions: * Nursing judgment * Patient wants to be seen * All higher-acuity triage questions were negative Care Advice Discussed: * Reasons To Call Back - New symptoms develop - You become worse * Telephone Encounter - Jacob David - 01/05/2025 3:56 PM EDT Symptom: Numbness in hands Outcome: Schedule an appointment to be seen within 3 days Reason: Caller denied all higher acuity questions The caller accepted this outcome. American speaking documented in this encounter Plan of Treatment Upcoming Encounters Date Type Department Care Team (Late st Contact Info) Description 05/04/2025 2:00 PM EST Office Visit [facility] [address] [place] [address] Jacqueline Kelley CNM [address] [place] [address] documented as of this encounter Visit Diagnoses Not on filedocumented in this encounter Additional Health Concerns Assessment Noted Time PHQ-9 Depression Total Score: 10 025 4:04 PM EDT documented as of this encounter Care Teams Shredding Floor Equipment Operator Relationship Specialty Start Date End Date Rubi Cuellar MD [address] [place] [address] PCP - General Family Medicine 07/30/23 Javon Marquez, RN [address] [place] [address] Registered Nurse Family Medicine 01/06/25 Cher Ribera 01/06/25 Mann [address] [place] [phone] Nurse Practitioner Psychiatry 07/23/24 documented as of this encounter
--- OUTSIDE RECORDS SUMMARY | 2025-02-07 17:49 | XMS_ITS | Encounter Summary ---
Author Organization [employer] Address 75 [facility] 7t [place] [address] Care Team Providers Care Position Classification Manager Name Role Phone Rubi Cuellar MD Primary Care Provider [phone] Javon Marquez RN Unavailable [phone] Cher Ribera Unavailable Encounter Details Date Type Department Care Team (Late st Contact Info) Description 08/05/2023 Telephone [facility] [address] [place] [address] Rubi Cuellar MD [address] [place] [address] Social History Tobacco Use Types Packs/Day Years [...] your housing situation today? I have ragini sing 07/30/[address] you li [...] Description 05/04/2025 2:00 PM EST Office Visit [facility] [address] [place] [address] Jacqueline Kelley CNM [address] [place] [address] documented as of this encounter Visit Diagnoses Not on filedocumented in this encounter Additional Health Concerns Assessment Noted Time PHQ-9 Depression Total Score: 8 07/30/19 24 12:52 PM EST documented as of this encounter Care Teams Position Classification Manager Relationship Specialty Start Date End Date Rubi Cuellar MD [address] [place] [address] PCP - General Family Medicine 07/30/23 Javon Marquez, RN [address] [place] [address] Registered Nurse Family Medicine 01/06/25 Cher Ribera 01/06/25 Mann Hutton [address] [place] [phone] Nurse Practitioner Psychiatry 07/23/24 documented as of this encounter
[2025-02-07 18:49] LABS: Free T4 (Free Thyroxine) 0.89 ng/dL (0.71-1.85)
[2025-02-07 20:20] LABS: Reticulocytes Absolute 0.142 X10*6/uL (0.026-0.095)
== END 2025-02-07 14:03 | disposition home or self-care (01) ==
LOC: HO.HHCL 14:02
PROVIDERS: Nurse Practitioner Family; PCP Family Medicine; Referring Provider Internal Medicine Medical Oncology; Visit Provider Advanced Practice Midwife
DX: Z12.4 Encounter for screening for malignant neoplasm of cervix (principal); D64.9 Anemia, unspecified; N92.6 Irregular menstruation, unspecified
CPT/HCPCS: 36415; 80053; 82248; 82728; 83010; 83615; 84146; 84403; 84439; 84443; 85025; 85045; 87491; 87591; 87661; 88175

== ENCOUNTER 2025-02-08 11:40 | Outpatient (REF) | payer MEDICAID, SELFPAY ==
[2025-02-09 18:37] LABS: Trichomonas (NAAT) NOT DETECTED (NOT DETECTED)
[2025-02-09 19:03] LABS: C. trachomatis RNA TMA NOT DETECTED (NOT DETECTED); N. gonorrhoeae RNA TMA NOT DETECTED (NOT DETECTED)
== END 2025-02-08 11:41 | disposition home or self-care (01) ==
LOC: HO.LNP 11:40
PROVIDERS: Visit Provider Advanced Practice Midwife
DX: Z11.3 Encounter for screening for infections with a predominantly sexual mode of transmission (principal); Z12.4 Encounter for screening for malignant neoplasm of cervix; Z11.8 Encounter for screening for other infectious and parasitic diseases
CPT/HCPCS: 87491; 87591; 87661; 88175

== ENCOUNTER 2025-02-14 13:53 | Outpatient (REF) | payer MEDICAID, SELFPAY ==
[2025-02-14 16:17] LABS: Gamma Glutamyl Transpeptidase 34 U/L (7-33)
[2025-02-21 01:04] LABS: FIB-ALT 24 U/L (6-29); FIB-Alpha-2-Macroglobulin 266 mg/dL (106-279); FIB-Apolipoprotein A1 133 mg/dL (101-198); FIB-GGT 25 U/L (3-40); FIB-Haptoglobin 243 mg/dL (43-212); FIB-Total Bilirubin 0.3 mg/dL (0.2-1.2); Liver Fibrosis Score 0.08; Liver Fibrosis Stage F0; Nec Inflam Act Grade A0; Nec Inflam Act Score 0.08
== END 2025-02-14 13:54 | disposition home or self-care (01) ==
LOC: HO.LAB 13:53
PROVIDERS: PCP Family Medicine; Visit Provider Nurse Practitioner Family
DX: K58.9 Irritable bowel syndrome, unspecified (principal); R79.89 Other specified abnormal findings of blood chemistry; K76.0 Fatty (change of) liver, not elsewhere classified; R74.8 Abnormal levels of other serum enzymes; Z11.59 Encounter for screening for other viral diseases
CPT/HCPCS: 36415; 81596; 82390; 82977; 86015; 86140; 86381; 99212

== ENCOUNTER 2025-02-14 13:53 | Outpatient (AMB) | payer MEDICAID, SELFPAY ==
--- NOTE | 2025-02-14 14:04 | A.OFFVIS_ITS ---
Vital Signs 02/14/25 14:11 Height 5 ft 5 in Weight 247 lb BMI 41.1 BP 120/66 Blood Pressure Location Rt brachial Position Sitting Pulse 92 Pulse Source Pulse Oximeter Pulse Oximetry (%) 97 Oxygen Delivery Method Room Air Intake Visit Reasons: lft, abd pain, fatty liver Intake Note: New pt for initial eval of transaminitis + abd pain. CC: C.O. GERD w/ current PPI tx, RUQ pain, foreign body sensation - esophageal, diarrhea interimttently with hematochezia. [employer] Technician Required: No Accompanied by: Other Relationship Allergies No Known Allergies Allergy (Verified 09/14/24 14:59) HPI HPI lft, abd pain, fatty liver: Details: 19-year-old female with past medical history of anemia, anxiety, depression, migraine headaches is here today for initial consultation. Patient was sent to us for evaluating her symptoms and complaining of right upper quadrant pain. Patient had elevated liver enzymes. Send for ultrasound that showed increased echogenicity most likely fatty liver. Patient denies melena, hematochezia. Reports to have ongoing acid reflux despite taking omeprazole daily. Patient is not on any particular diet. Reports occasional food getting stuck when she swallows. Most of the time is with solid food. Patient admits to eating fast food mainly. Denies dyspepsia or odynophagia. Patient reports occasional nausea depending on what she eats. Patient denies hematochezia, however only when she has multiple episodes of diarrhea she will have blood after bowel movement. Patient's gallbladder on the ultrasound was normal without sludge, cholelithiasis, cholecystitis [facility] Medical History (Updated 03/21/25 @ 20:01 by Halley Ferraro [facility]) RUQ abdominal pain Migraine GERD (gastroesophageal reflux disease) Anxiety and depression Anemia Family History Maternal Grandfather Heart disease Mother Heart disease Maternal Grandfather Diabetes Maternal Grandmother Vaginal cancer Breast cancer Social History Household Members: Family Patient Tobacco Use Status: Never used Tobacco service: No Current occupational status: student Gender identity: Female Review of Systems Const Denies weight gain and Denies weight loss ENT Reports no additional complaints, Reports dysphagia and Denies odynophagia Card Reports no additional complaints Resp Reports no additional complaints GI Reports abdominal pain (RUQ), Denies belching, Denies melena, Reports bloating, Denies change in bowel habits, Reports dysphagia, Denies excessive flatus, Denies dyspepsia, Reports heartburn, Reports diarrhea, Reports loose stools, Denies nausea, Denies odynophagia and Denies vomiting Reports no additional complaints Musc Reports no additional complaints Neuro Reports no additional complaints Psych Reports no additional complaints Endo Reports no additional complaints Physical Exam Vital Signs: Last Vital Signs Pulse 92 02/14/25 14:11 BP 120/66 02/14/25 14:11 Pulse Ox 97 02/14/25 14:11 Oxygen Delivery Method Room Air 02/14/25 14:11 BMI result Body Mass Index 41.1 Const General: healthy appearing and no acute distress Nutritional Appearance: well nourished and obese Orientation/consciousness: patient oriented x3 Resp Effort & Inspection: normal respiratory effort, able to speak in complete sentences, no tracheal deviation and symmetric chest movement Auscultation: clear to auscultation bilaterally Cardio Rate: regular rate GI Inspection: Yes normal to inspection, No distended and Yes obesity Palpation (GI): Soft to palpation, not firm, nontender and No hepatosplenomegaly present Auscultation: normal bowel sounds General: Yes no CVA tenderness Back/Spine/Pelvis Back: no CVA tenderness Skin General skin exam: elasticity normal, turgor normal and dry skin Neuro General: patient oriented x3 Psych Appearance: grossly normal Mental Status: mental status grossly normal Results Reviewed Results Reviewed: Laboratory Tests 08/15/24 11/01/24 02/07/25 15:30 12:34 14:07 AST 32 H ALT 49 H Alkaline Phosphatase 92 Tiss Transglutamin IgG <1.0 Tiss Transglutamin IgA <1.0 Hepatitis A IgG Ab Nonreactive Hepatitis A IgM Ab Nonreactive Hep Bs Antigen Negative Hep Bs Antibody NONREACTIVE Hep B Core Total Ab Nonreactive Hepatitis C Ab (EIA) Nonreactive ABDOMINAL ULTRASOUND AUGUST 2024 FINDINGS: PANCREAS: Visualized portions are unremarkable. ABDOMINAL AORTA: The proximal, mid, and distal segments are normal in caliber. INFERIOR VENA CAVA: Visualized portions are normal. LIVER: The liver is normal in size. Right hepatic lobe measures 16.6 cm. The liver contour is normal. There is diffuse increased liver parenchymal echogenicity, consistent with hepatic steatosis. No focal hepatic lesion. There is no intrahepatic biliary duct dilatation seen. GALLBLADDER: The gallbladder is physiologically distended without evidence of stones, sludge, polyps, wall thickening or pericholecystic fluid. COMMON BILE DUCT: Normal in caliber measuring 0.2 cm in diameter. RIGHT KIDNEY: No hydronephrosis. No renal calculi or focal parenchymal lesions. The kidney measures 12.0 cm in maximum dimension. LEFT KIDNEY: No hydronephrosis. No renal calculi or focal parenchymal lesions. The kidney measures 10.9 cm in maximum dimension. SPLEEN: The spleen measures 12.5 cm in maximum dimension. FREE FLUID: None. US/US abdomen complete IMPRESSION: Mildly increased hepatic echogenicity consistent with steatosis. Otherwise normal examination. Assessment & Plan Assessment & Plan (1) Anemia: Code(s): D64.9 - Anemia, unspecified Category: Medical Qualifiers: Anemia type: iron deficiency (2) Postprandial diarrhea: Code(s): K52.9 - Noninfective gastroenteritis and colitis, unspecified (3) GERD (gastroesophageal reflux disease): Code(s): K21.9 - Gastro-esophageal reflux disease without esophagitis (4) RUQ abdominal pain: Code(s): R10.11 - Right upper quadrant pain Category: Medical (5) Postprandial abdominal bloating: Code(s): R14.0 - Abdominal distension (gaseous) Plan Rule out out immune disorders. Patient will be sent for colonoscopy occasional blood in his stool and patient is anemic. Most likely from hemorrhoids. Discussed with patient low FODMAP diet. We also talked about a low fat, low salt, low carb and high-protein diet. Try to lose weight. Will send her for ultrasound of the liver with elastography as well. What to expect before during and after procedure discussed with patient. Stressed the importance of good bowel prep and clear liquid diet day before procedure. Patient is agreeable to this plan and verbalizes understanding of instructions. She was given the opportunity to ask questions and all questions answered. Thank you for allowing me to participate in her care Orders: Orders Gamma Glutamyl Transpeptidase 02/14/25 R74.8 - Abnormal levels of other serum enzymes Mitochondrial Antibody 02/14/25 R79.89 - Other specified abnormal findings of blood chemistry Ceruloplasmin 02/14/25 R79.89 - Other specified abnormal findings of blood chemistry Smooth Muscle Antibody 02/14/25 R79.89 - Other specified abnormal findings of blood chemistry Liver Fibrosis Pnl 02/14/25 K76.0 - Fatty (change of) liver, not elsewhere classified C Reactive Protein 02/14/25 K58.9 - Irritable bowel syndrome, unspecified US abdomen dover w elastography 02/14/25 K76.0 - Fatty (change of) liver, not elsewhere classified Referrals GI Procedure Notification Z12.11 - Encounter for screening for malignant neoplasm of colon Coding Level of Care Code New Pt Level 5 (25437) Diagnoses Anemia D64.9 Anemia type: iron deficiency Postprandial diarrhea K52.9 GERD (gastroesophageal reflux disease) K21.9 RUQ abdominal pain R10.11 Postprandial abdominal bloating R14.0 Time Spent (min) 50 Comment 35 minutes spent with patient and additional 15 minutes spent reviewing her records
[2025-02-14 14:11] VITALS: BP 120/66; PULSE 92; O2SAT 97; BMI 41.1
--- OUTSIDE RECORDS SUMMARY | 2025-02-14 17:04 | XMS_ITS ---
Author Organization [employer] Address [address] [place] [address] 7 [place] [address] Care Team Providers Care Fur Storage Clerk Name Role Phone Rubi Cuellar MD Primary Care Provider [phone] Javon Marquez RN Unavailable [phone] Cher Ribera Unavailable CM Complex Status:Outreach In Progress (Enrolling) Start date:01/06/2025 Enrollment reason:ADT Feed Overview ADT-[facility] ED 01/05/25 Case Team Name Relationship Phone Javon Marquez RN(Responsible Staff) Registered [facility] [phone] Continued Care and Services Coordination
--- OUTSIDE RECORDS SUMMARY | 2025-02-14 17:04 | XMS_ITS | Clinical Summary ---
Author Organization [facility] Address [address] [place] [address] Care Team Providers Care Tableman Name Role Phone Unavailable Primary Care Provider [...]
--- OUTSIDE RECORDS SUMMARY | 2025-02-14 17:04 | XMS_ITS | Encounter Summary ---
Author Organization [employer] Address [address] [facility] 7t [place] [address] Care Team Providers Care Re Etcher Name Role Phone Rubi Cuellar MD Primary Care Provider [phone] Javon Marquez RN Unavailable [phone] Cher Ribera Unavailable Reason for Visit * Reason Comments Care Coordination C3 -Dale emmanuel telephone call outreach Encounter Details Date Type Department Care Team (Latest Contact Info) Description 02/13/2025 Patient Outreach [facility] [address] [place] [address] Rubi Cuellar MD [address] [place] [address] Care Coordination (C3 MAXIMILIANO Ribera telephone call [...] encounter Progress Notes * Cher Ribera - 02/13/2025 9:40 AM EDT CHW Cher Ribera, placed outbound call to patient in regards to offer services. CHW introducing herself from [facility] CM Department with CHW's name, department and direct contact number requesting call back. Will re-attempt to contact within 5 days. and address not confirmed. documented in this encounter Plan of Treatment Upcoming Encounters Date Type Department Care Team (Late st Contact Info) Description 05/04/2025 2:00 PM EST Office Visit [facility] [address] [place], [place] [phone] Jacqueline Kelley CNM [address] [place] [address] documented as of this encounter Visit Diagnoses Not on filedocumented in this encounter Additional Health Concerns Assessment Noted Time PHQ-9 Depression Total Score: 10 025 4:04 PM EDT documented as of this encounter Care Teams Re Etcher Relationship Specialty Start Date End Date Rubi Cuellar MD [address] [place] [address] PCP - General Family Medicine 07/30/23 Javon Marquez, GORODN [address] [place] [address] Registered Nurse Family Medicine 01/06/25 Cher Ribera 01/06/25 Mann [address] [place] [phone] Nurse Practitioner Psychiatry 07/23/24 documented as of this encounter
--- OUTSIDE RECORDS SUMMARY | 2025-02-14 17:04 | XMS_ITS | Encounter Summary ---
Author Organization [employer] Address 75 [facility] 7t [place] [address] Care Team Providers Care Biodiesel Plant Superintendent Name Role Phone Rubi Cuellar MD Primary Care Provider [phone] Javon Marquez RN Unavailable [phone] Cher Ribera Unavailable Reason for Visit * Reason Onset Date Comments Nurse Triage 01/05/2025 Encounter Details Date Type Department Care Team (Late st Contact Info) Description 01/05/2025 Telephone [facility] [address] [place] [address] Rubi Cuellar MD [address] [place] [address] Nurse Triage Social History Tobacco Use Types [...] EDT Triage call returned with BLS # [id number] Renee. Patient called reporting numbness of both [...] Protocol Available (Adult) Protocol-Based Disposition: Go to ED/[facility] Now (or to Office Now per Policy) [...] acuity questions The caller accepted this outcome. Niuean speaking documented in this encounter Plan of Treatment Upcoming Encounters Date Type Department Care Team (Late st Contact Info) Description 05/04/2025 2:00 PM EST Office Visit [facility] [address] [place] [address] Jacqueline Kelley CNM [address] [place] [address] documented as of this encounter Visit Diagnoses Not on filedocumented in this encounter Additional Health Concerns Assessment Noted Time PHQ-9 Depression Total Score: 10 025 4:04 PM EDT documented as of this encounter Care Teams Biodiesel Plant Superintendent Relationship Specialty Start Date End Date Rubi Cuellar MD [address] [place] [address] PCP - General Family Medicine 07/30/23 Javon Marquez, RN [address] [place] [address] Registered Nurse Family Medicine 01/06/25 Cher Ribera 01/06/25 Mann [address] [place] [phone] Nurse Practitioner Psychiatry 07/23/24 documented as of this encounter
--- OUTSIDE RECORDS SUMMARY | 2025-02-14 17:04 | XMS_ITS | Encounter Summary ---
Author Organization [employer] Address [address] [facility] 7t [place] [address] Care Team Providers Care Executive Team Leader Name Role Phone Rubi Cuellar MD Primary Care Provider [phone] Javon Marquez RN Unavailable [phone] Cher Ribera Unavailable Reason for Visit * Reason Comments Care Coordination C3- chart review Encounter Details Date Type Department Care Team (Latest Contact Info) Description 01/06/2025 Patient Outreach [facility] MEDICINE [address] [place] [address] Rubi Cuellar MD [address] [place], [place] [phone] Care Coordination (C3CM- chart review) Social History Tobacco Use Types Packs/Day Years [...] is your housing situation today? I have ragnii zhang 10/31/[address] you [...] as of this encounter Progress Notes * Javon Marquez RN - 01/06/2025 8:41 AM EDT ARUN Marquez RN, performed chart review, in anticipation of initial assessment with patient, aspatient has stratified for C3 Adult Complex Care through the ADT feed. History significant for adjustment disorder with mixed anxiety and depressed mood, depression, class 2 obesity, anemia, other sleep apnea, transaminitis, intractable migraine. Specialists include [facility] nutrition, [facility], [facility], [facility] dermatology. ED visits within the last 12 months include [facility] 01/05/25. Last appointment in PCP office on 10/31/24. No future appointment scheduled with PCP . documented in this encounter Plan of Treatment Upcoming Encounters Date Type Department Care Team (Late st Contact Info) Description 05/04/2025 2:00 PM EST Office Visit [facility] MEDICINE [address] [place] [address] Jacqueline Kelley CNM [address] [place] [address] documented as of this encounter Visit Diagnoses Not on filedocumented in this encounter Additional Health Concerns Assessment Noted Time PHQ-9 Depression Total Score: 10 025 4:04 PM EDT documented as of this encounter Care Teams Executive Team Leader Relationship Specialty Start Date End Date Rubi Cuellar MD [address] [place] [address] PCP - General Family Medicine 07/30/23 Javon Marquez RN [address] [place] [address] Registered Nurse Family Medicine 01/06/25 Cher Ribera 01/06/25 Mann Hutton [address] [place] [phone] Nurse Practitioner Psychiatry 07/23/24 documented as of this encounter
--- OUTSIDE RECORDS SUMMARY | 2025-02-14 17:04 | XMS_ITS ---
Author Organization [employer] Address [address] [place] [address] 7 [place] [address] Care Team Providers Care Jewel Inspector Name Role Phone Rubi Cuellar MD Primary Care Provider [phone] Javon Marquez RN Unavailable [phone] Cher Ribera Unavailable CHW Complex Status:Outreach In Progress (Enrolling) Start date:01/06/2025 Enrollment reason:ADT Feed Overview [facility] ED 01/05/25 Case Team Name Relationship Phone Cher Ribera(Responsible Staff) Continued Care and Services Coordination
--- OUTSIDE RECORDS SUMMARY | 2025-02-14 17:04 | XMS_ITS | Encounter Summary ---
Author Organization [employer] Address [address] [facility] 7t [place] [address] Care Team Providers Care Computer Compositor Name Role Phone Rubi Cuellar MD Primary Care Provider [phone] Javon Marquez RN Unavailable [phone] Cher Ribera Unavailable Reason for Visit * Reason Onset Date Comments Prior Authorization 12/02/2024 Encounter Details Date Type Department Care Team ([facility] st Contact Info) Description 12/02/2024 Telephone [facility] CHC MED & PEDS [address] [place], [place] [phone] Rubi Cuellar MD [address] [place] [address] Prior Authorization Social History Tobacco Use Types [...] Description 05/04/2025 2:00 PM EST Office Visit [facility] MEDICINE [address] [place] [address] Jacqueline Kelley CNM [address] [place] [address] documented as of this encounter Visit Diagnoses Not on filedocumented in this encounter Additional Health Concerns Assessment Noted Time PHQ-9 Depression Total Score: 10 025 4:04 PM EDT documented as of this encounter Care Teams Computer Compositor Relationship Specialty Start Date End Date Rubi Cuellar MD [address] [place] [address] PCP - General Family Medicine 07/30/23 Javon Marquez, RN [address] [place] [address] Registered Nurse Family Medicine 01/06/25 Cher Ribera 01/06/25 Mann Hutton [address] [place] [phone] Nurse Practitioner Psychiatry 07/23/24 documented as of this encounter
--- OUTSIDE RECORDS SUMMARY | 2025-02-14 17:04 | XMS_ITS | Encounter Summary ---
Author Organization [employer] Address [address] [facility] [address] [place] [address] Care Team Providers Care Soda Flaker Name Role Phone Rubi Cuellar MD Primary Care Provider [phone] Javon Marquez RN Unavailable [phone] Cher Ribera Unavailable Encounter Details Date Type Department Care Team (Late st Contact Info) Description 02/14/2025 Orders Only GENERIC EXTERNAL DATA DEPARTMENT Provider, Generic External Data Social History Tobacco Use Types Packs/Day Years [...] Description 05/04/2025 2:00 PM EST Office Visit [facility] MEDICINE [address] [place] [address] Jacqueline Kelley, CHRISTIAN [address] [place] [address] documented as of this encounter Procedures Procedure Name Priority Date/Time Associated Diagnosis Comments C-REACTIVE PROTEIN Routine 02/14/2025 3: 33 PM EDT GGT Routine 02/14/2025 3:33 PM EDT documented in this encounter Results * (ABNORMAL) C-reactive Protein (02/14/2025 3:33 PM EDT) C Reactive Protein 0.98(H) < or = 0.50 mg/dL [facility] 02/14/2025 3:33 PM EDT 02/14/2025 3:33 PM EDT us Generic External Data Provider LAB BLOOD ORDERAB LES Final Result [facility] [address] [place] [address] [phone] * (ABNORMAL) Gamma Glutamyl Transferase (GGT) (02/14/2025 3:33 PM EDT) Gamma Glutamyl Transpeptidase 34(H) 7 - 33 U/L [facility] 02/14/2025 3:33 PM EDT 02/14/2025 3:33 PM EDT us Generic External Data Provider LAB BLOOD ORDERAB LES Final Result [facility] [address] [place] [address] [phone] documented in this encounter Visit Diagnoses Not on filedocumented in this encounter Additional Health Concerns Assessment Noted Time PHQ-9 Depression Total Score: 10 025 4:04 PM EDT documented as of this encounter Care Teams Soda Flaker Relationship Specialty Start Date End Date Rubi Cuellar MD [address] [place] [address] PCP - General Family Medicine 07/30/23 Javon Marquez, RN [address] [place] [address] Registered Nurse Family Medicine 01/06/25 Cher Ribera 01/06/25 Mann Hutton [address] [place] [phone] Nurse Practitioner Psychiatry 07/23/24 documented as of this encounter
--- OUTSIDE RECORDS SUMMARY | 2025-02-14 17:04 | XMS_ITS | Encounter Summary ---
Author Organization [employer] Address [address] [facility] 7t [place] [address] Care Team Providers Care Tool And Die Maker/Designer Name Role Phone Rubi Cuellar MD Primary Care Provider [phone] Javon Marquez RN Unavailable Cher Ribera Unavailable Encounter Details Date Type Department Care Team (Late st Contact Info) Description 02/08/2025 Results Follow-Up [facility] MEDICINE [address] [place], [place] [phone] Jacqueline Kelley CNM [address] [place], [place] [phone] TSH W/Reflex to FT4, Pap Smear Social History Tobacco Use Types Packs/Day Years [...] Description 05/04/2025 2:00 PM EST Office Visit [facility] MEDICINE [address] [place] [address] Jacqueline Kelley CNM [address] [place] [address] documented as of this encounter Visit Diagnoses Not on filedocumented in this encounter Additional Health Concerns Assessment Noted Time PHQ-9 Depression Total Score: 10 025 4:04 PM EDT documented as of this encounter Care Teams Tool And Die Maker/Designer Relationship Specialty Start Date End Date Rubi Cuellar MD [address] [place] [address] PCP - General Family Medicine 07/30/23 Javon Marquez, RN [address] [place] [address] Registered Nurse Family Medicine 01/06/25 Cher Ribera 01/06/25 Mann Hutton [address] [place] [phone] Nurse Practitioner Psychiatry 07/23/24 documented as of this encounter
--- OUTSIDE RECORDS SUMMARY | 2025-02-14 17:04 | XMS_ITS | Encounter Summary ---
Author Organization [employer] Address [address] [facility] 7t [place] [address] Care Team Providers Care Dude Ranch Manager Name Role Phone Rubi Cuellar MD Primary Care Provider [phone] Javon Marquez RN Unavailable [phone] Cher Ribera Unavailable Encounter Details Date Type Department Care Team (Late st Contact Info) Description 08/05/2023 Telephone [facility] MEDICINE [address] [place] [address] Rubi Cuellar MD [address] [place] [address] Social History Tobacco Use Types Packs/Day Years [...] Description 05/04/2025 2:00 PM EST Office Visit [facility] MEDICINE [address] [place] [address] Jacqueline Kelley CNM [address] [place] [address] documented as of this encounter Visit Diagnoses Not on filedocumented in this encounter Additional Health Concerns Assessment Noted Time PHQ-9 Depression Total Score: 8 07/30/19 24 12:52 PM EST documented as of this encounter Care Teams Dude Ranch Manager Relationship Specialty Start Date End Date Rubi Cuellar MD [address] [place] [address] PCP - General Family Medicine 07/30/23 Javon Marquez, RN [address] [place] [address] Registered Nurse Family Medicine 01/06/25 Cher Ribera 01/06/25 Mann Hutton [address] [place] [phone] Nurse Practitioner Psychiatry 07/23/24 documented as of this encounter
--- OUTSIDE RECORDS SUMMARY | 2025-02-14 17:04 | XMS_ITS | Clinical Summary ---
Author Organization [employer] Address [address] [facility] [address] [place] [address] Care Team Providers Care Director Of Infection Prevention Name Role Phone Rubi Cuellar MD Primary Care Provider [phone] Javon Marquez RN Unavailable [phone] Cher Ribera Unavailable Allergies Active Allergy [...] per day. 90 tablet 1 5 Active Tirzepatide-Weigh t Management (Zepbound) 5 MG/0.5ML solution auto-injector Inject 0.5 mL (5 mg) under the skin 1 (one) time per week. INJECT 5 MG UNDER THE SKIN 1 (ONE) TIME PER WEEK. DO NOT START BEFORE DECEMBER 21, 2024. 2 mL 2 5 Active SUMAtriptan (Imitrex) 100 MG tablet TAKE 1 TABLET (100 MG) BY MOUTH 1 (ONE) TIME IF NEEDED FOR MIGRAINE. 9 tablet 1 5 Active Drospirenone (Slynd) 4 MG tablet Take 1 tablet by mouth Once per day. 28 tablet 11 5 Active Active Problems Problem Noted Date Diagnosed [...] of heavy menstrual bleeding. Consider referral to [facility] HUSBANDRY [facility]NAGER for assessment and management. Class 2 severe [...] recommended reduction of 20-30% of maintenance calories; sap developer referral offered. Recommended to decrease soda and [...] recommended reduction of 20-30% of maintenance calories; sap developer referral offered. Recommended to decrease soda and sugary beverage consumption. Recommended at least 20 g per meal of protein to assist with satiety. Recommended at least 150 min/week of moderate intensity exercise. Assessment & Plan (08/01/2023 2:49 AM EST): Discussed calorie deficit, recommended reduction of 20-30% of maintenance calories; sap developer referral offered. Recommended to decrease soda and [...] y/o. Currently engage in MH services at [facility], last appt with therapist was 07/18/23 and next appt with Psychiatrist is 07/24/23. During IBH Consult Mela presenting with depressed mood, loss [...] services in the past 12 months) Contact [facility] team as needed Contact [facility] if a crisis episode arise. Assessment & Plan (07/22/2023 5:00 PM EST): Off meds, counseled to restart sertraline and fu with MH provider at [facility]. counselor in house called for addtl [...] Encounters Date Type Department Care Team Description 02/14/2025 Orders Only GENERIC EXTERNAL DATA DEPARTMENT Provider, Generic External Data 02/13/2025 Patient Outreach [address] [address] Rubi Cuellar MD Care Coordination ([facility]3 [facility] Cher Ribera telephone call outreach) 02/08/2025 Orders Only [address] [address] Oksana Mina CNM Elevated TSH (Primary Dx) 02/08/2025 Results Follow-Up [address] [address] Oksana Mina CNM TSH W/Reflex to FT4, Pap Smear 02/07/2025 1:00 PM EDT Office Visit [address] [address] Oksana Mina CNM Left ovarian cyst (Primary Dx); Irregular menstrual bleeding; Cervical cancer screening; Encntr screen for infections w sexl mode of transmiss 02/07/2025 Travel 02/06/2025 Patient Outreach [address] [address] Rubi Cuellar MD Care Coordination ([facility] Cher Ribera telephone call outreach) 02/06/[address] [address] Oksana Mina CNM chart prep 02/01/2025 Telephone [facility] [address] [place], [place] [phone] Rubi Cuellar MD Nurse Triage 01/17/2025 Patient Outreach [address] [address] Rubi Cuellar MD Care Coordination ([facility] [place] Cher Ribera telephone call outreach) 01/10/2025 Patient Outreach [address] [address] Rubi Cuellar MD 01/08/2025 Refill [facility] [address] [place] [address] Rubi Cuellar MD 01/06/2025 Patient Outreach [address] [address] Rubi Cuellar MD Care Coordination (C3 -[facility] Cher Ribera chart review ) 01/06/2025 Patient Outreach [address] [address] Rubi Cuellar MD Care Coordination ([facility]- chart review) 01/06/2025 Patient Outreach [address] [address] Rubi Cuellar MD 01/05/[address] [address] Rubi Cuellar MD Nurse Triage 12/26/2024 Results Follow-Up [facility] [address] [place] [address] Rubi Cuellar MD Measles, Mumps, and Rubella (MMR) Antibodies (IgG) Panel, Immune Status, Varicella zoster antibody, IgG, T-SPOT .TB, Additional followed-up results: 8 12/26/2024 Telephone [facility] [address] [place] [address] Rubi Cuellar MD 12/22/2024 3:00 PM EDT Nutrition [facility]NTRN [address] [place] [address] Class 2 severe obesity due to excess calories with serious comorbidity and body mass index (BMI) of 37.0 to 37.9 in adult ([facility]) 12/22/2024 Travel 12/19/[address] [address] Rubi Cuellar MD Referral 12/09/[address] [address] Rubi Cuellar MD Referral 12/02/2024 Telephone [facility] [address] [place] [address] Rubi Cuellar MD Prior Authorization 11/23/2024 Telephone [facility] [address] [place] [address] Rubi Cuellar MD 11/21/2024 Refill [facility] [address] [place] [address] Rubi Cuellar MD 11/17/2024 Telephone [facility] [address] [place], [place] [phone] Rubi Cuellar MD from Last 3 Months [...] Description 05/04/2025 2:00 PM EST Office Visit [facility] [address] [place] [address] Oksana Mina CNM [address] [place] [address] Health Maintenance Due Date Last Done Comments HPV Vaccines (1 - 3-dose series) 08/22/2018 Meningococcal B Vaccine (1 o f 2 - Standard) 2019 Hepatitis B Vaccines (1 of 3 - 19+ 3-dose series) 08/22/2022 COVID-19 Vaccine (3 - 2024-2 6 season) 2025 01/30/2021, 01/09/2021 Influenza Vaccine (#1) 2025 , 03/01/2020 Depression Monitoring 05/02/2025 10/31/2024 , 10/31/2024 Tobacco Screening 08/09/2025 08/09/2024 Alcohol/Substance Use Screening 10/31/2025 10/31/2024 SDOH Screening 10/31/2025 10/31/2024 Chlamydia and Gonorrhea Screening 02/07/2026 02/07/2025, 07/22/2023 Disability Screening 02/07/2026 02/07/2025 Family Planning (PISQ) 02/07/2026 02/07/2025 Pap Smear 02/07/2026 02/07/2025 Lipid Panel 11/01/2029 11/01/2024, 07/30/2023 [...] EDT GGT Routine 02/14/2025 3:33 PM EDT HAPTOGLOBIN Routine 02/07/2025 2:07 PM EDT LD Routine 02/07/2025 2:07 PM EDT BILIRUBIN, DIRECT Routine 02/07/2025 2:0 7 PM EDT RETICULOCYTE COUNT Routine 02/07/2025 2: 07 PM EDT T4, FREE Routine 02/07/2025 2:07 PM EDT FERRITIN Routine 02/07/2025 2:07 PM EDT COMPREHENSIVE METABOLIC PANEL Routine 02/07/2025 2:07 PM EDT CBC WITH AUTO DIFFERENTIAL Routine 02/07/2025 2:07 PM EDT TESTOSTERONE, TOTAL, MALES (ADULT), IA Routine 02/07/2025 2:07 PM EDT Irregular menstrual bleeding PROLACTIN Routine 02/07/2025 2:07 PM EDT Irregular menstrual bleeding TSH W/REFLEX TO FT4 Routine 02/07/2025 2 :07 PM EDT Irregular menstrual bleeding POCT HEMOGLOBIN Routine 02/07/2025 1:38 PM EDT Irregular menstrual bleeding CHLAMYDIA/N. GONORRHOEAE AND T. VAGINALIS RNA, QUAL,TMA Routine 02/07/2025 12:00 AM EDT Encntr screen for infections w sexl mode of transmiss PAP SMEAR Routine 02/07/2025 12:00 AM EDT Cervical cancer screening T-SPOT(R).TB Routine 12/22/2024 2:17 PM EDT VARICELLA [...] Routine screening for STI (sexually transmitted infection) from Last 3 Months or Most Recently Relevant to Health Maintenance Results * (ABNORMAL) C-reactive Protein (02/14/2025 3:33 PM EDT) C Reactive Protein 0.98(H) < or = 0.50 mg/dL [facility] 02/14/2025 3:33 PM EDT 02/14/2025 3:33 PM EDT us Generic External Data Provider LAB BLOOD ORDERAB LES Final Result Performing Organization Address City/[facility] Co de Phone Number [facility] [address] [place] [phone] * (ABNORMAL) Gamma Glutamyl Transferase (GGT) (02/14/2025 3:33 PM EDT) Gamma Glutamyl Transpeptidase 34(H) 7 - 33 U/L [facility] 02/14/2025 3:33 PM EDT 02/14/2025 3:33 PM EDT Generic External Data Provider LAB BLOOD ORDERAB LES Final Result Performing Organization Address City/[facility]/ZIP Co de Phone Number [facility] [address] [place] [address] [phone] * (ABNORMAL) TSH W/Reflex to FT4 (02/07/2025 2:07 PM EDT) [facility] TSH reflex Free T4 4.40(H) 0.32 - 4.0 uIU/mL [facility] Blood Venous blood specimen / Unknown 02/07/2025 2:07 PM EDT 02/07/2025 4:04 PM EDT Oksana BERUMEN LAB BLOOD ORDERABLES Misti l Result Performing Organization Address [facility] Co de Phone Number [facility] [address] [place] [address] [phone] * (ABNORMAL) CBC auto differential (02/07/2025 2:07 PM EDT) [facility] White Blood Count 14.0(H) 4.8 - 10.8 X10*3/uL [facility] Red Blood Count 4.95 4.20 - 5.50 X10*6/uL [facility] Hemoglobin 14.1 12.0 - 16.0 g/dl [facility] Hematocrit 42.3 37.0 - 47.0 % [facility] Mean Corpuscular Volume 85.5 80.0 - 98.0 fL [facility] Mean Corpuscular Hemoglobin 28.5 27.0 - 33.0 pg [facility] Mean Corpuscular HGB Conc 33.3 31.0 - 35.0 g/dl [facility] Red Cell Distribution Width 13.2 11.0 - 16.0 % [facility] Platelet Count 377 160 - 400 X10*3/uL [facility] Mean Platelet Volume 10.3 9.4 - 12.3 fL [facility] Neutrophils Percent Auto 66.9 45 - 73 % [facility] Imm Gran Pct Auto 0.7(H) 0.0 - 0.4 % [facility] Lymphocytes Percent Auto 23.8 20 - 40 % [facility] Monocytes Percent Auto 6.1 2 - 11 % [facility] Eosinophils Percent Auto 2.1 0 - 4 % [facility] Basophils Percent Auto 0.4 0 - 2 % [facility] NRBC Pct Auto 0.0 0.0 - 0.2 /100WBC [facility] Neutrophils Absolute Auto 9.4(H) 2.0 - 8.3 x10*3/uL [facility] Imm Gran Abs Auto 0.10(H) 0.00 - 0.03 X10*3/uL [facility] Lymphocytes Absolute Auto 3.3 1.2 - 4.9 X10*3/uL [facility] Monocytes Absolute Auto 0.9 0.1 - 1.2 X10*3/uL [facility] Eosinophils Absolute Auto 0.3 0.0 - 0.4 X10*3/uL [facility] Basophils Absolute Auto 0.1 0.0 - 0.2 X10*3/uL [facility] NRBC Abs Auto 0.000 0.0 - 0.012 X10*3/uL [facility] 02/07/2025 2:07 PM EDT 02/07/2025 4:04 PM EDT us Generic External Data Provider LAB BLOOD ORDERAB LES Final Result [facility] [address] [place] [phone] * Prolactin (02/07/2025 2:07 PM EDT) Prolactin 11.2 ng/mL [facility] Comment:Reference Range Fema les Non- 3.0-30.0 10.0-209.0 Postmenopausal 2.0-20.0THIS TEST WAS PERFORMED AT:[employer] [place] [phone] GONZALEZ MD Blood Venous blood specimen / Unknown 02/07/2025 2:07 PM EDT 02/07/2025 4:04 PM EDT Oksana Mina [facility] LAB BLOOD ORDERABLES Misti l Result Performing Organization Address [facility] [place] [facility] Co de Phone Number [facility] [address] [place] [phone] * (ABNORMAL) Reticulocyte Count (02/07/2025 2:07 PM EDT) Reticulocytes Absolute 0.142(H) 0.026 - 0.095 X10*6/uL [facility] Immature Retic Fraction 13.3 3.0 - 15.9 % [facility] Retic HGB Equivalent 32.9 30.0 - 35.0 pg [facility] Reticulocyte Percent 2.9(H) 0.5 - 1.8 % [facility] 02/07/2025 2:07 PM EDT 02/07/2025 4:04 PM EDT Generic External Data Provider LAB BLOOD ORDERAB LES Final Result Performing Organization Address [facility] Co de Phone Number [facility] [address] [place] [phone] * T4, Free (02/07/2025 2:07 PM EDT) Free T4 (Free Thyroxine) 0.89 0.71 - 1.85 ng/dL [facility] 02/07/2025 2:07 PM EDT 02/07/2025 4:04 PM EDT Oksana Mina [facility] LAB BLOOD ORDERABLES Misti l Result Performing Organization Address [facility] [place] [facility]/ZIP Co de Phone Number [facility] [address] [place] [phone] * Testosterone, Total, males (Adult), IA (02/07/2025 2:07 PM EDT) Testosterone, Total 18 2 - 45 ng/dL [facility] Comment:For additional infor robin, please refer tohttp://education.[employer]/faq/MwoupInydknuyklqcUNFMLDLRK767(This link is being provided for informational/educational purposes only.)This test was developed and its analytical performancecharacteristics have been determined by [employer] [place], [place]. It hasnot been cleared or approved by the U.S. Food and DrugAdministration. This assay has been validated pursuantto the CLIA regulations and is used for clinicalpurposes.THIS TEST WAS PERFORMED AT:[employer] [place] [phone] CLINE MD,PHD Blood Venous blood specimen / Unknown 02/07/2025 2:07 PM EDT 02/07/2025 4:04 PM EDT us Oksana Mina [facility] LAB BLOOD ORDERABLES Misti l Result Performing Organization Address City/[facility]/ZIP Co de Phone Number [facility] [address] [place] [phone] * (ABNORMAL) Lactate Dehydrogenase (LD) (02/07/2025 2:07 PM EDT) Lactate Dehydrogenase 227(H) 122 - 220 U/L [facility] 02/07/2025 2:07 PM EDT 02/07/2025 4:04 PM EDT us Generic External Data Provider LAB BLOOD ORDERAB LES Final Result Performing Organization Address [facility] [place] [facility]/ZIP Co de Phone Number [facility] [address] [place] [phone] * Haptoglobin (02/07/2025 2:07 PM EDT) Haptoglobin 230 35 - 250 mg/dL [facility] 02/07/2025 2:07 PM EDT 02/07/2025 8:01 PM EDT Generic External Data Provider LAB BLOOD ORDERAB LES Final Result Performing Organization Address [facility] [place] [facility]/ZIP Co de Phone Number [facility] [address] [place] [phone] * (ABNORMAL) Ferritin (02/07/2025 2:07 PM EDT) Pathologist [facility] Ferritin 124(H) 10 - 122 ng/mL [facility] 02/07/2025 2:07 PM EDT 02/07/2025 4:04 PM EDT Generic External Data Provider LAB BLOOD ORDERAB LES Final Result Performing Organization Address [facility] Co de Phone Number [facility] [address] [place] [phone] * Bilirubin, Direct (02/07/2025 2:07 PM EDT) Pathologist [facility] Bilirubin, Direct <0.2 0.0 - 0.5 mg/dL [facility] 02/07/2025 2:07 PM EDT 02/07/2025 4:04 PM EDT Generic External Data Provider LAB BLOOD ORDERAB LES Final Result Performing Organization Address [facility] [place] [facility] Co de Phone Number [facility] [address] [place] [phone] * (ABNORMAL) Comprehensive Metabolic Panel (02/07/2025 2:07 PM EDT) Sodium 139 135 - 145 mmol/L [facility] Potassium 4.3 3.3 - 5.1 mmol/L [facility] Chloride 107 96 - 108 mmol/L [facility] Carbon Dioxide 24 22 - 29 mmol/L [facility] Anion Gap 12 12 - 20 [facility] Urea Nitrogen (BUN) 14 9 - 16 mg/dL [facility] Creatinine, Serum 0.71 0.5 - 1.4 mg/dL [facility] Estimated Glomerular Filt Rate >60 [facility] Comment:Chronic Kidney Disea se: Estimated GFR < 60 mL/min/1.29a3Metsuo Kidney Disease: Estimated GFR < 15 mL/min/1.73m2 Glucose 118(H) 60 - 115 mg/dL [facility] Calcium 9.1 8.4 - 10.2 mg/dL [facility] Bilirubin, Total 0.2 0.0 - 1.0 mg/dL [facility] Aspartate Amino Transferase 32(H) 5 - 31 U/L [facility] Alanine Aminotransferase 49(H) 0 - 31 U/L [facility] Total Protein 7.8 6.5 - 8.0 g/dL [facility] Albumin Level 4.1 3.5 - 5.0 g/dL [facility] Alkaline Phosphatase 92 39 - 117 U/L [facility] 02/07/2025 2:07 PM EDT 02/07/2025 4:04 PM EDT us Generic External Data Provider LAB BLOOD ORDERAB LES Final Result [facility] [address] [place] [phone] * POCT hemoglobin docked device (02/07/2025 1:38 PM EDT) Hemoglobin 14.6 12.0 - 15.0 QC Media Lot # [id number] Lot# Expiration Date [id number] Blood 02/07/2025 1:38 PM EDT us Oksana Mina CNM POINT OF CARE TEST ENTER/ EDIT ORDERABLES Final Result * STI testing add on (NG, CT, Trich) (02/07/2025 12:00 AM EDT) Trichomonas (NAAT) NOT DETECTED NOT DETECTED [facility] Comment:The analytical perfo rmance characteristics of thisassay have been determined by [employer]. Themodifications have not been cleared or approved bythe FDA. This assay has been validated pursuant to theCLIA regulations and is used for clinical purposes.For additional information, please refer tohttp://education.[employer]/faq/Trichomonastma(This link is being provided for information/educational purposes only.)THIS TEST WAS PERFORMED AT:[employer] [place] [phone] GONZALEZ MD CTNG Ref Lab NOT DETECTED NOT DETECTED [facility] NG Ref Lab NOT DETECTED NOT DETECTED [facility] ThinPrep vial Cervix uteri structure / Unknown 02/07/2025 02/08/2025 11:40 AM EDT Narrative [facility] - 02/09/2025 7:03 PM EDT Collection Date: [id number] by: TRICIA Matute: Cervix Oksana Mina [facility] CYTOLOGY ORDERABLES F inal Result [facility] [address] [place] [phone] * Pap Smear (02/07/2025 12:00 AM EDT) Swab Cervix uteri structure / Unknown 02/07/2025 02/08/2025 11:40 AM EDT [facility] - 02/14/2025 10:05 AM EDT ----- ------- Name: Mela Farrell Age/Sex: 19/F : 2005 Unit#: [id number] Attend Dr: Re02/07/25 Status: PRE REF Location: [facility] Disch: ----- ------- SPEC : [id number] RECD: 02/08/25-1140 STATUS: HARRY WALTERS NUM: [id number] NERIS: 02/07/25-[address]: OKSANA MINA [facility] ENTERED: 02/08/25-115 SP TYPE: Pap Smr OT DR: ORDERED: Pap Smear, PAP path review Interpretation ABNORMAL PAP TEST. Satisfactory for evaluation, with mildly dysplastic squamous cells / HPV cytopathic change (EDMOND 1; low grade squamous intraepithelial lesion). No endocervical cells seen. Clinical Information LMP: Unknown date Previous PAP test: First pap Other history: Cervical cancer screening Material Received ThinPrep-Cervical PAP Disclaimer As of March 16, 2024, the technical services to include automated prescreening performed by the ThinPrep Imaging System, PAP screening and HPV testing will be performed at [facility] (IA #[id number]), [address] [place] [address]. Testing for HPV was performed using the Yvette ELENA 6800 system. The presence of HPV in the female genital tract is associated with a number of diseases, including cervical carcinoma. The HPV DNA high risk pool tests for HPV 31, 33, 35, 39, 45, 51, 52, 56, 58, 59, 66 and 68. The testing for HPV 16 and 18 genotypes has also been performed. A positive result indicates detection of nucleic acid sequences from one or more subtypes, whereas a negative result indicates such sequences were not detected. All professional services are performed by [facility] ([address] [place] [phone]; ; [facility] #[id number]). The PAP Test is a screening procedure with the inherent possibility of both false negative and false positive results. Results should be interpreted in the context of historic and current clinical findings. Reliability of the PAP Test is enhanced by performing the test on a regular repetitive basis. ----- ------- Signed (signature on file) Hira Gonzalez MD 02/14/25 1005 ----- ------- END OF REPORT us Oksana Mina [facility] CYTOLOGY ORDERABLES F inal Result [facility] [address] [place] [phone] * T-SPOT??.TB (12/22/2024 2:17 PM EDT) [facility] T Spot TB Negative Negative [facility] Comment:A negative test resu lt [...] as aquantitative test. TS PANEL A 1 [facility] TS PANEL B 0 [facility] Negative Control Passed [facility] Positive Control Passed [facility] Comment:For additional infor robin, please refer tohttp://education.[employer]/faq/IWM582(This link is being provided for informational/educational purposes only.)THIS TEST WAS PERFORMED AT:[employer] [address] [place] [phone] CLINE MD,PHD 12/22/2024 2:17 PM EDT 12/22/2024 5:53 PM EDT us Rubi Cuellar MD LAB BLOOD ORDERABLES Final Re sult [facility] [address] [place] [phone] * Measles, Mumps, and Rubella (MMR) Antibodies??(IgG) Panel, Immune Status (12/22/2024 2:17 PM EDT) Mumps Virus IgG Antibody 64.60 AU/mL [facility] Comment:AU/mL Interpretation ------- <9.00 Not consistent with immunity9.00-10.99 Equivocal>10.99 Consistent with immunityThe presence of mumps IgG antibody suggests immunizationor past or current infection with mumps virus. Rubella IgG Antibody 1.82 Index [facility] Comment:Index Interpretatio n ----- <0.90 Not consistent with immunity 0.90-0.99 Equivocal > or = 1.00 Consistent with immunityThe presence of rubella IgG antibody suggestsimmunization or past or current infection withrubella virus.THIS TEST WAS PERFORMED AT:[employer] [place] [phone] GONZALEZ MD Rubeola IgG (Measles) 172.00 AU/mL [facility] Comment:AU/mL Interpretation ----- <13.50 Not consistent with eavgqjfa39.50-16.49 Equivocal>16.49 Consistent with immunityThe presence of measles IgG suggests immunization orpast or current infection with measles virus.For additional information, please refer tohttp://[employer]/faq/RYR722(This link is being provided for informational/educational purposes only.) 12/22/2024 2:17 PM EDT 12/22/2024 5:53 PM EDT us Rubi Cuellar MD LAB BLOOD ORDERABLES Final Re sult [facility] [address] [place] [phone] * Varicella zoster antibody, IgG (12/22/2024 2:17 PM EDT) Pathologist [facility] Varicella IgG Antibody 7.23 S/CO [facility] Comment:Signal to Cut-off S/ CO [...] Antibody Immunity Screen, ACIF.THIS TEST WAS PERFORMED AT:[employer] [address] [phone] GONZALEZ MD 12/22/2024 2:17 PM EDT 12/22/2024 5:53 PM EDT Rubi Cuellar MD LAB BLOOD ORDERABLES Final Re sult Performing Organization Address [facility] Co de Phone Number [facility] [address] [place] [phone] * Hepatitis C Antibody with Reflex to HCV, RNA, Quantitative, Real-Time PCR (11/01/2024 12:34 PM EDT) Hepatitis C Antibody Nonreactive Nonreactive [facility] Comment:Antibodies to HCV no t detected; does not exclude early acuteHCV infection. Blood Venous blood specimen / Unknown 11/01/2024 12:34 PM EDT 11/01/2024 2:14 PM EDT Rubi Cuellar MD LAB BLOOD ORDERABLES Final Re sult Performing Organization Address [facility] de Phone Number [facility] [address] [place] [phone] * (ABNORMAL) Lipid Panel, Standard (11/01/2024 12:34 PM EDT) Triglycerides 189(H) <150 mg/dL [facility] Comment:Desirable Triglyceri de: less than 150 mg/dLBorderline High Triglyceride 150-199 mg/dLHigh Triglyceride: 200-499 mg/dLVery High Triglyceride: greater than or equal to 5OO mg/dL Cholesterol 134 <200 mg/dL [facility] Comment:Desirable Cholestero l: less than 200 mg/dLBorderline High Cholesterol: 200-239 mg/dLHigh Cholesterol: greater than 239 mg/dL LDL Cholesterol Calculated 69 <100 mg/dL [facility] Comment:Desirable LDL: less than 100 mg/dLNear Optimal/Above Optimal LDL: 110- 129 mg/dLBorderline High LDL: 130-159 mg/dLHigh LDL: 160-189 mg/dLVery High LDL: greater than or equal to 190 mg/dL HDL Cholesterol 28(L) >40 mg/dL [facility] Comment:Desirable HDL: great er than 40 mg/dL Note: This HDL assay may give artificially low results in patients with liver disease. Blood Venous blood specimen / Unknown 11/01/2024 12:34 PM EDT 11/01/2024 2:18 PM EDT us Rubi Cuellar MD LAB BLOOD ORDERABLES Final Re sult Performing Organization Address [facility]/ZIP Co de Phone Number [facility] [address] [place] [phone] * HIV-1/2 Antigen and Antibodies, Fourth Generation, with Reflexes (07/30/2023 1:53 PM EST) Pathologist [facility] HIV AB/AG Nonreactive Nonreactive [facility] Comment:HIV-1 p24 Ag and/or HIV-1/HIV-2 Ab not detected.A test result that is nonreactive does not exclude thepossibility of exposure to or infection with HIV-1 and/orHIV-2. Nonreactive results in this assay for individualswith prior exposure to HIV-1 and/or HIV-2 may be due toantigen and antibody levels that are below the limit ofdetection of this assay.The [employer] HIV Ag/Ab Combo assay result andsupplemental assay results should be interpreted inconjunction with the patient's clinical presentation,history and other laboratory results. If the results areinconsistent with clinical evidence, additional testing issuggested to confirm the result. Blood Venous blood specimen / Unknown 07/30/2023 1:53 PM EST 07/30/2023 5:22 PM EST us Rubi Cuellar MD LAB BLOOD ORDERABLES Final Re sult Performing Organization Address City/[facility]/ZIP Co de Phone Number [facility] [address] [place] [phone] [phone] from Last 3 Months or Most Recently Relevant to Health Maintenance Insurance [facility] C3 Care Teams Director Of Infection Prevention Relationship Specialty Start Date End Date Rubi Cuellar MD [address] [place] [address] PCP - General Family Medicine 07/30/23 Javon Marquez, GORDON [address] [place] [address] Registered Nurse Family Medicine 01/06/25 Cher Ribera 01/06/25 Mann Hutton [address] [place] [phone] Nurse Practitioner Psychiatry 07/23/24
== END 2025-02-14 14:51 | disposition home or self-care (01) ==
LOC: HO.HGI 13:54
PROVIDERS: PCP Family Medicine; Visit Provider Nurse Practitioner Family
DX: D64.9 Anemia, unspecified (principal); K52.9 Noninfective gastroenteritis and colitis, unspecified; K21.9 Gastro-esophageal reflux disease without esophagitis; R10.11 Right upper quadrant pain; R14.0 Abdominal distension (gaseous)
CPT/HCPCS: 99205

== ENCOUNTER 2025-05-04 14:10 | Outpatient (REF) | payer MEDICAID, SELFPAY ==
--- OUTSIDE RECORDS SUMMARY | 2025-05-04 14:00 | XMS_ITS | Encounter Summary ---
Author Organization [employer] Address [address] [place] [address] [address] [place] [address] Care Team Providers Care Model Set Artist Name Role Phone Rubi Cuellar MD Primary Care Provider [phone] Kita Gee RN Unavailable [phone] Chana Del Valle Unavailable Reason for Referral * Consultation (Routine) - Authorized Specialty Diagnoses / Procedures Referred By Zhanna lord Referred To Contact Family Medicine Diagnoses Skin tag Jacqueline Kelley CNM [address] [place] [address] Phone: tel: fax: Referral ID Status Reason Start Date Expiration Date Visits Requested Visits Authorized [id number] Authorized Specialty Services Required 5 05/04/2026 1 1 Reason for Visit * Reason Comments Follow-up Encounter Details Date Type Department Care Team (Late st Contact Info) Description 05/04/2025 2:00 PM EST Office Visit [facility] [address] [place], [place] [phone] Jacqueline Kelley CNM [address] [place], [place] [phone] Left ovarian cyst (Primary Dx); Skin tag Social History Tobacco Use Types Packs/Day Years Used Date Smoking Tobacco: Never Passive Smoke Exposure: Never Smokeless Tobacco: Never Alcohol Use Standard Drinks/Week Comments Never 0 (1 standard drink = 0.6 oz pur e alcohol) Alcohol Answer Date Recorded How often do you have a drink containing alcohol ? 0 05/04/2025 How many drinks containing a lcohol do you have on a typical day when you are drinking? 0 05/04/2025 How often do you have six or more drinks on one occasion? 0 05/04/2025 Depression Answer Date Recorded Patient Health Questionnaire-9 Score 19 05/04/2025 Patient Health Questionnaire-9 Score 19 05/04/2025 Last PHQ-9: Questionnaire Data Not on file 1 07/05/2024 Housing Stability Answer Date Recorded What is [...] Date Recorded Patient Health Questionnaire-2 Score 3 05/04/2025 Internet Access Answer Date Recorded Internet Access Q1 Yes 10/21/2024 Internet Access Q2 Not on file 10/21/2024 Comments No Intention Date Recorded No desire to become (finding) 1 07/05/2024 Sex and Gender Information Value Date Recorded Sex Assigned at Female 04/18/2023 9:52 PM EST Legal Sex Female 9:50 PM EST Gender Identity Female 04/18/2023 9:52 PM EST Sexual Orientation Straight 08/03/2023 9: 21 AM EDT documented as of this encounter Last Filed Vital Signs Vital Sign Reading Time Taken Comments Blood Pressure 140/90 05/04/2025 1:53 PM EST Pulse 65 05/04/2025 1:53 PM EST Temperature 36.2 C (97.2 F) 05/04/2025 1:53 PM EST Respiratory Rate 20 05/04/2025 1:53 PM EST Oxygen Saturation 99% 05/04/2025 1:53 PM EST Inhaled Oxygen Concentration - - Weight 112 kg (246 lb 6.4 oz) 05/04/2025 1:53 PM EST Height 168 cm (5' 6.14 ) 05/04/2025 1:53 PM EST Body Mass Index 39.6 05/04/2025 1:53 PM EST documented in this encounter Functional Status * Over the past 2 weeks, how often have you been bothered by any of the following problems? Question Answer Date of Assessment Author Patient Health Questionnaire-2 Score 3 04/24 2:14 PM EST June Bryan MA * Little interest or pleasure in doing things Answer Date of Assessment Author Several days 05/04/2025 2:14 PM EST June Bryan MA * Feeling down, depressed, or hopeless Answer Date of Assessment Author More than half the days 05/04/2025 2:14 PM EST S June hassan MA * Trouble falling or staying asleep, or sleeping too much Answer Date of Assessment Author Nearly every day 05/04/2025 2:14 PM EST June Bryan MA * Feeling tired or having little energy Answer Date of Assessment Author More than half the days 05/04/2025 2:14 PM EST S errJose parnellcy, [place] * Poor appetite or overeating Answer Date of Assessment Author More than half the days 05/04/2025 2:14 PM EST S errJose parnellcy MA * Feeling bad about yourself - or that you are a failure or have let yourself or your family down Answer Date of Assessment Author Nearly every day 05/04/2025 2:14 PM EST June Bryan MA * Trouble concentrating on things, such as reading the newspaper or watching television Answer Date of Assessment Author Nearly every day 05/04/2025 2:14 PM EST June Bryan, [place] * Moving or speaking so slowly that other people could have noticed? Or the opposite - being so fidgety or restless that you have been moving around a lot more than usual. Answer Date of Assessment Author Several days 05/04/2025 2:14 PM June Szymanski MA * Thoughts that you would be better off or hurting yourself in some way Answer Date of Assessment Author More than half the days 05/04/2025 2:14 PM June Ortiz MA * Patient Health Questionnaire-9 Score Answer Date of Assessment Author 19 05/04/2025 2:14 PM June Szymanski MA * How difficult have these problems made it for you to do your work, take care of things at home, or get along with other people? Answer Date of Assessment Author Somewhat difficult 05/04/2025 2:14 PM June Grande MA documented as of this encounter Progress Notes * Jacqueline Kelley, CHRISTIAN - 05/04/2025 2:00 PM EST Subjective Patient ID: Mela Medrano is a 19 y.o. female who presents for followup oral contraceptive pill LSIL pap 01/2025. Repeat due 01/2026. Gonorrhea/Chlamydia/trichomonas neg 01/2025. Rx'd Slynd. She isn't taking. Not sexually active since last visit. LMP mid 03/2025. Not planning in the nextyear. Seen in ER for pelvic pain 01/2025. No worrisome findings, pelvic ultrasound showed small leftovarian cyst. Elevated TSH 01/2025, repeat ordered which needs to be collected. Would like inner thigh skin tag removal as this has been more bothersome. Would like area on right breast checked. She reports there was a pimple there that she squeezed. Review of Systems Genitourinary: Positive for pelvic pain. Objective BP (!) 140/90 (BP Location: Left arm, Patient Position: Sitting, BP Cuff Size: Large adult) Pulse65 Temp 97.2 ??F (36.2 ??C) (Oral) Resp 20 Ht 5' 6.14 (1.68 m) Wt 246 lb 6.4 oz (112 kg) LMP (LMP Unknown) SpO2 99% BMI 39.60 kg/m?? Physical Exam Constitutional: Appearance: Normal appearance. Chest: Comments: Limited exam,less than 1 cm area of largely resolved former pustule on right breast inneraspect. Neurological: Mental Status: She is alert. Psychiatric: Mood and Affect: Mood normal. Behavior: Behavior normal. Assessment/Plan Diagnoses and all orders for this visit: Left ovarian cyst Pelvic ultrasound 05/2024 with 6.7cm left simple cyst, ORADS 2, repeat ultrasound in 12 months advised. Ultrasound 01/2025 with 2.4cm left ovarian cyst, no followup advised. Reviewed imaging with her. Seek care if pain or AUB. Could consider oral contraceptive pill again, but declines at this time. Reassured, area on right breast largely resolved. Avoid picking or squeezing. Seek care if not fully resolved in 1-2 weeks or if symptoms worsen. Skin tag - Referral to [facility] Derm Skin Adult; Future Will refer to derm for removal. Reviewed previous pap results and plan. Pap 01/2026. Printed lab req to get repeat TSH today. documented in this encounter Plan of Treatment Upcoming Encounters Date Type Department Care Team (Late st Contact Info) Description 06/08/2025 1:30 PM EST Clinical Support [facility]N [address] [place] [address] Triny Garcia, MORRIS [address] [place] [address] Scheduled Referrals Name Type Priority Associated Diagnoses Orde r Schedule Referral to [facility] Derm Skin Adult Outpatient Referral Routine Skin tag Expected: 05/04/2025 (Approximate), Expires: 05/04/2026 documented as of this encounter Visit Diagnoses Diagnosis Left ovarian cyst- Primary Other and unspecified ovarian cyst Skin tag Unspecified hypertrophic and atrophic condition of skin documented in this encounter Additional Health Concerns Assessment Noted Time PHQ-9 Depression Total Score: 19 025 2:14 PM EST documented as of this encounter Care Teams Model Set Artist Relationship Specialty Start Date End Date Rubi Cuellar MD [address] [place] [address] PCP - General Family Medicine 07/30/23 Kita Gee RN [address] [place] [address] Registered Nurse Family Medicine 02/27/25 Chana Del Valle 02/27/25 Mann Hutton [address] [place] [phone] Nurse Practitioner Psychiatry 07/23/24 documented as of this encounter
--- OUTSIDE RECORDS SUMMARY | 2025-05-04 21:40 | XMS_ITS | Clinical Summary ---
Author Organization [facility] ity Address [address] [place] [address] Care Team Providers Care Blast Furnace Tender Name Role Phone Unavailable Primary Care Provider [...] ap Smear 08/22/2024 COVID-19 Vaccine (1 - 2024-2 6 season) 2025 Influenza Vaccine (#1) 2025 RSV Immunization Adult Patie nts (1 - 1-dose 75+ series) 08/22/2078 HIB Vaccines Aged Out No longer eligi [...]
--- OUTSIDE RECORDS SUMMARY | 2025-05-04 21:41 | XMS_ITS | Encounter Summary ---
Author Organization [employer] Address [address] [place] [address] Care Team Providers Care Head Char Filter Tank Tender Name Role Phone Rubi Cuellar MD Primary Care Provider [phone] Kita Gee RN Unavailable [phone] Chana Del Valle Unavailable Encounter Details Date Type Department Care Team ([facility] Contact Info) Description 05/03/2025 Telephone [facility] [address] [place] [address] Jose BryanH[place], [place] Social History Tobacco Use Types Packs/Day Years [...] encounter Miscellaneous Notes * Telephone Encounter - June Bryan MA - 05/03/2025 9:51 AM EST Chart Prep Labs: done Images: not done Referrals: 10/31/24 Vaccines due: Covid, Flu, and HPV Screenings: not applicable Overdue care gaps: PHQ-9 documented in this encounter Plan of Treatment Upcoming Encounters Date Type Department Care Team (Late st Contact Info) Description 06/08/2025 1:30 PM EST Clinical Support [facility] DIAB[facility]/NTRN [address] [place] [address] [place] [address] documented as of this encounter Visit Diagnoses Not on filedocumented in this encounter Additional Health Concerns Assessment Noted Time PHQ-9 Depression Total Score: 10 025 4:04 PM EDT documented as of this encounter Care Teams Head Char Filter Tank Tender Relationship Specialty Start Date End Date Rubi Cuellar MD [address] [place] [address] PCP - General Family Medicine 07/30/23 Kita Gee RN [address] [place] [address] Registered Nurse Family Medicine 02/27/25 Chana Del Valle 02/27/25 Mann Hutton [address] [place] [phone] Nurse Practitioner Psychiatry 07/23/24 documented as of this encounter
--- OUTSIDE RECORDS SUMMARY | 2025-05-04 21:41 | XMS_ITS | Encounter Summary ---
Author Organization [employer] Address [address] [place] [address] Care Team Providers Care [employer] Medical Sergeant Name Role Phone Rubi Cuellar MD Primary Care Provider [phone] Kita Gee RN Unavailable [phone] Chana Del Valle Unavailable Encounter Details Date Type Department Care Team (Latest Contact Info) Description 05/04/2025 Travel Social History Tobacco Use Types Packs/Day [...] your housing situation today? I have ragini vicente 10/31/[address] you li [...] PM EST S June hassan MA * Poor appetite or overeating Answer Date of Assessment Author More than half the days 05/04/2025 2:14 PM EST S June hassan MA * Feeling bad about yourself - or that you are a failure or have let yourself or your family down Answer Date of Assessment Author Nearly every day 05/04/2025 2:14 PM June Szymanski MA * Trouble concentrating on things, such as reading the newspaper or watching television Answer Date of Assessment Author Nearly every day 05/04/2025 2:14 PM June Szymanski MA * Moving or speaking so slowly [...] Grande [place] documented as of this encounter Plan of Treatment Upcoming Encounters Date Type Department Care Team (Late st Contact Info) Description 06/08/2025 1:30 PM EST Clinical Support [facility] DI[facility]/NTRN [address] [place] [address] Triny Garcia, MORRIS [address] [place] [address] documented as of this encounter Visit Diagnoses Not on filedocumented in this encounter Additional Health Concerns Assessment Noted Time PHQ-9 Depression Total Score: 025 2:14 PM EST documented as of this encounter Care Teams [employer] Medical Sergeant Relationship Specialty Start Date End Date Rubi Cuellar MD [address] [place] [address] PCP - General Family Medicine 07/30/23 Kita Gee, GORDON [address] [place] [address] Registered Nurse Family Medicine 02/27/25 Chana Del Valle 02/27/25 Mann Hutton [address] [place] [phone] Nurse Practitioner Psychiatry 07/23/24 documented as of this encounter
--- OUTSIDE RECORDS SUMMARY | 2025-05-04 21:41 | XMS_ITS | Clinical Summary ---
Author Organization [employer] Address [address] [facility] [address] [place] [address] Care Team Providers Care City Dispatcher Name Role Phone Rubi Cuellar MD Primary Care Provider [phone] Kita Gee RN Unavailable [phone] Chana Del Valle Unavailable Allergies Active Allergy Reactions Criticality Noted [...] of heavy menstrual bleeding. Consider referral to OXYGEN THERAPY TECHNICIAN for assessment and management. Class 2 severe [...] recommended reduction of 20-30% of maintenance calories; research pharmacist referral offered. Recommended to decrease soda and [...] recommended reduction of 20-30% of maintenance calories; research pharmacist referral offered. Recommended to decrease soda and sugary beverage consumption. Recommended at least 20 g per meal of protein to assist with satiety. Recommended at least 150 min/week of moderate intensity exercise. Assessment & Plan (08/01/2023 2:49 AM EST): Discussed calorie deficit, recommended reduction of 20-30% of maintenance calories; research pharmacist referral offered. Recommended to decrease soda and [...] y/o. Currently engage in MH services at [facility], last appt with therapist was 07/18/23 and [...] services in the past 12 months) Contact [facility] team as needed Contact [facility] if a crisis episode arise. Assessment & Plan (07/22/2023 5:00 PM EST): Off meds, counseled to restart sertraline and fu with MH provider at [facility]. counselor in house called for addtl evaluation [...] Encounters Date Type Department Care Team Description 05/04/2025 2:00 PM EST Office Visit [address] [address] Oksana Mina, CHRISTIAN Left ovarian cyst (Primary Dx); Skin tag 05/04/2025 Travel 05/03/2025 Telephone [facility] [address] [place] [phone] June Bryan MA 04/18/[address] [address] Rubi Cuellar MD 04/13/2025 Patient Outreach [address] [address] Rubi Cuellar MD Care Management (C3CM- initial assessment/ enrollment. Not available.) 03/29/2025 Patient Outreach [address] [address] Rubi Cuellar MD Care Coordination (CM/CHW outreach) 03/08/2025 Patient Outreach [address] [address] Rubi Cuellar MD Care Coordination (CM/CHW outreach) 03/08/2025 Patient Outreach [address] [address] Rubi Cuellar MD 02/27/2025 Patient Outreach [address] [address] Rubi Cuellar MD Care Coordination (CM/CHW outreach) 02/27/2025 Patient Outreach [address] [address] Rubi Cuellar MD Care Coordination (CHW chart review) 02/27/2025 Patient Outreach [address] [address] Rubi Cuellar MD Care Management (C3- chart review) 02/27/2025 Patient Outreach [address] [address] Rubi Cuellar MD 02/24/2025 Patient Outreach [address] [address] Rubi Cuellar MD Care Coordination (C3 -[facility] telephone call outreach) 02/20/2025 Patient Outreach [address] [address] Rubi Cuellar MD Care Coordination (C3 -[facility] telephone call outreach) 02/14/2025 Orders Only GENERIC EXTERNAL DATA DEPARTMENT Provider, Generic External Data 02/13/2025 Patient Outreach [address] [address] Rubi Cuellar MD Care Coordination (C3 -[facility] telephone call outreach) 02/08/2025 Orders Only [address] [address] Oksana Mina CNM Elevated TSH (Primary Dx) 02/08/2025 Results Follow-Up [address] [address] Oksana Mina CNM TSH W/Reflex to FT4, Pap Smear 02/07/2025 1:00 PM EDT Office Visit [address] [address] Oksana Mina CNM Left ovarian cyst (Primary Dx); Irregular menstrual bleeding; Cervical cancer screening; Encntr screen for infections w sexl mode of transmiss 02/07/2025 Travel 02/06/2025 Patient Outreach [address] [address] Rubi Cuellar MD Care Coordination (C3 -[facility] telephone call outreach) 02/06/[address] [address] Oksana Mina CNM chart prep from Last 3 Months Immunizations Immunization Administration [...] Mass Index 39.6 05/04/2025 1:53 PM EST Plan of Treatment Upcoming Encounters Date Type Department Care Team (Late st Contact Info) Description 06/08/2025 1:30 PM EST Clinical Support [facility] [address] [place] [address] Triny Garcia, RD [address] [place] [address] Health Maintenance Due Date Last Done Comments HPV Vaccines (1 - 3-dose series) 08/22/2018 Meningococcal B Vaccine (1 of 2 - Standard) 2019 Hepatitis B Vaccines (1 of 3 - 19+ 3-dose series) 08/22/2022 COVID-19 Vaccine (3 - 2024- season) 2025 01/30/2021, 01/09/2021 Influenza Vaccine (#1) 2025 04/11/2024, 2019 Alcohol/Substance Use Screening 10/31/2025 10/31/2024 SDOH Screening 10/31/2025 10/31/2024 Depression Monitoring 11/02/2025 05/04/2025, 025 Chlamydia and Gonorrhea Screening 02/07/2026 02/07/2025, 12/12/2023, 12/12/2023, Additional history exists Disability Screening 02/07/2026 02/07/2025 Pap Smear 02/07/2026 02/07/2025 Family Planning (PISQ) 05/04/2026 05/04/2025 Tobacco Screening 05/04/2026 05/04/2025 Lipid Panel 11/01/2029 11/01/2024, 07/30/2023 DTaP/Tdap/Td Vaccines (3 - Td or Tdap) 07/16/2034 07/16/2024, 04/11/2024 Zoster Vaccines (1 of 2) 08/22/2053 RSV Patients and Patients Aged 60 years or older (1 - 1-dose 75+ series) 08/22/2078 HIV Screening Completed 07/30/2023 Hepatitis C Screening Completed 11/01/2024, 024 HIB Vaccines Aged Out No longer eligi [...] 49) Years Aged Out No longer eligible based on patient's age to complete this topic RSV under 20 months Aged Out No longe r eligible based on patient's age to complete this topic Rotavirus Vaccines Aged Out No longer eligible based on patient's age to complete this topic Procedures Procedure Name Priority Date/Time Associated Diagnosis Comments TSH W/REFLEX TO FT4 Routine 05/04/2025 2 :13 PM EST Elevated TSH MITOCHONDRIAL ANTIBODY WITH REFLEX TO TITER Routine 02/14/2025 3:33 PM EDT LIVER FIBROSIS, FIBROTEST ACTITEST PANEL Routine 02/14/2025 3:33 PM EDT ACTIN (SMOOTH MUSCLE) ANTIBODY (IGG) Routine 02/14/2025 3:33 PM EDT CERULOPLASMIN Routine 02/14/2025 3:33 PM EDT C-REACTIVE PROTEIN Routine 02/14/2025 3: 33 PM [...] 02/07/2025 12:00 AM EDT Cervical cancer screening HEPATITIS C AB W/REFL TO HCV RNA, QN, PCR Routine 11/01/2024 12:34 PM EDT Transaminitis LIPID PANEL, STANDARD Routine 11/01/2024 12:34 PM EDT Transaminitis HIV 1/2 ANTIGEN/ANTIBODY, FOURTH GENERATION W/RFL Routine 07/30/2023 1:53 PM EST Routine screening for STI (sexually transmitted infection) from Last 3 Months or Most Recently Relevant to Health Maintenance Results * TSH W/Reflex to FT4 (05/04/2025 2:13 PM EST) Only the most recent of2 resultswithin the time period is included. TSH reflex Free T4 2.26 0.32 - 4.0 uIU/mL [facility] Blood Venous blood specimen / Unknown 05/04/2025 2:13 PM EST 05/04/2025 4:15 PM EST us Oksana Mina [facility] LAB BLOOD ORDERABLES Misti mckeon Result [facility] [address] [place] [phone] * (ABNORMAL) Liver Fibrosis (HCV), FibroTest-ActiTest Panel (02/14/2025 3:33 PM EDT) Liver Fibrosis Score 0.08 [facility] Liver Fibrosis Stage F0 [facility] Liver Fibrosis Interpretation SEE NOTE [facility] Comment:no fibrosisFibro Lexi t Score (f) Metavir Score f>=0 and f<=0.21 : F0 (no fibrosis)f>0.21 and f<=0.27 : F0-F1 (no fibrosis)f>0.27 and f<=0.31 : F1 (minimal fibrosis)f>0.31 and f<=0.48 : F1-F2 (minimal fibrosis)f>0.48 and f<=0.58 : F2 (moderate fibrosis)f>0.58 and f<=0.72 : F3 (advanced fibrosis)f>0.72 and f<=0.74 : F3-F4 (advanced fibrosis)f>0.74 and f<=1.00 : F4 (severe fibrosis) Nec Inflam Act Score 0.08 [facility] Nec Inflam Act Grade A0 [facility] Nec Inflam Act Interpretation SEE NOTE [facility] Comment:no activityActiTest Score (a) Metavir Score a>=0 and a<=0.17 : A0 (no activity)a>0.17 and a<=0.29 : A0-A1 (no activity)a>0.29 and a<=0.36 : A1 (minimal activity)a>0.36 and a<=0.52 : A1-A2 (minimal activity)a>0.52 and a<=0.60 : A2 (significant activity)a>0.60 and a<=0.62 : A2-A3 (significant activity)a>0.62 and a<=1.00 : A3 (severe activity) NQL-Jhfed-3-Macroglo bulin 266 106 - 279 mg/dL [facility] FIB-Haptoglobin 243(A) 43 - 212 mg/dL [facility] FIB-Apolipoprotein A1 133 101 - 198 mg/dL [facility] FIB-Total Bilirubin 0.3 0.2 - 1.2 mg/dL [facility] FIB-GGT 25 3 - 40 U/L [facility] FIB-ALT 24 6 - 29 U/L [facility] Reference ID [id number] [facility] Footnote SEE NOTE [facility] Comment: The reliability of results is dependent on compliance withthe preanalytical and analytical conditions recommended by[employer]. The tests have to be deferred for: acutehemolysis, acute hepatitis, acute inflammation, extrahepatic cholestasis. The advice of a specialist should besought for interpretation in chronic hemolysis and Gilbert'ssyndrome. The test interpretation is not validated in livertransplant patients. Isolated extreme values of one of thecomponents should lead to caution in interpreting theresults. In case of discordance between a biopsy result susan test, it is recommended to seek the advice of aspecialist. The causes of these discordances could be due toa flaw of the test or to a flaw in the biopsy: i.e. a liverbiopsy has a 33% variability rate for one fibrosis stage.FibroTest is interpretable for chronic hepatitis B and C,alcoholic and non alcoholic steatosis. ActiTest isinterpretable for chronic hepatitis B and C.The performance characteristics have been determined by[facility]. Ithas not been cleared or approved by the U.S. Food and DrugAdministration. Performance characteristics refer to theanalytical performance of the test.[employer], the associated logo, [employer] and all associated [employer] hardy are theregistered trademarks of [employer]. All third partymarks - (R) and (TM) - are the property of their respectiveowners. (C) [id number] [employer]. Allrights reserved.THIS TEST WAS PERFORMED AT:[employer] [id number] [place] [address]AJVNTDONTAE ROSA MD,PHD,FABI 02/14/2025 3:33 PM EDT 02/14/2025 3:33 PM EDT us Generic External Data Provider LAB BLOOD ORDERAB LES Final Result [facility] [address] [place] [address] [phone] * Actin (Smooth Muscle) Antibody (IgG) (02/14/2025 3:33 PM EDT) Smooth Muscle Antibody <20 <20 U [facility] Comment:Reference Range: <2 0 U: Negative>or=20 U: PositiveAntibodies recognizing actin are the main componentof smooth muscle antibodies associated with auto- immune liver disease. Actin antibodies are found inapproximately 75% of patients with autoimmunehepatitis (AIH) type 1, approximately 65% of patientswith autoimmune cholangitis, approximately 30% ofpatients with primary biliary cirrhosis andapproximately 2% of healthy controls. High values areclosely correlated with AIH type 1.THIS TEST WAS PERFORMED AT:[employer]/MI[id number] [place] [address]QBWLOUGESTUARDO CLINE MD,PHD 02/14/2025 3:33 PM EDT 02/14/2025 3:33 PM EDT us Generic External Data Provider LAB BLOOD ORDERAB LES Final Result Performing Organization Address City/[facility]/ZIP Co de Phone Number [facility] [address] [place] [phone] * Ceruloplasmin (02/14/2025 3:33 PM EDT) Ceruloplasmin 26 14 - 48 mg/dL [facility] Comment:THIS TEST WAS PERFOR MED AT:[employer] [id number] [place] [address]KAYHHBRYON GONZALEZ MD 02/14/2025 3:33 PM EDT 02/14/2025 3:33 PM EDT Generic External Data Provider LAB BLOOD ORDERAB LES Final Result Performing Organization Address [facility] Co de Phone Number [facility] [address] [place] [phone] * Mitochondrial Antibody with Reflex to Titer (02/14/2025 3:33 PM EDT) Mitochondrial Antibodies NEGATIVE NEGATIVE [facility] Comment:THIS TEST WAS PERFOR MED AT:[employer] [place] [address]VLJNOBRYON GONZALEZ MD Mitochondrial Ab Titer TNP [facility] 02/14/2025 3:33 PM EDT 02/14/2025 3:33 PM EDT Generic External Data Provider LAB BLOOD ORDERAB LES Final Result Performing Organization Address City/[facility]/ZIP Co de Phone Number [facility] [address] [place] [phone] * (ABNORMAL) C-reactive Protein (02/14/2025 3:33 PM EDT) Pathologist [facility] C Reactive Protein 0.98(H) < or = 0.50 mg/dL [facility] 02/14/2025 3:33 PM EDT 02/14/2025 3:33 PM EDT Generic External Data Provider LAB BLOOD ORDERAB LES Final Result Performing Organization Address [facility] Co de Phone Number [facility] [address] [place] [phone] * (ABNORMAL) Gamma Glutamyl Transferase (GGT) (02/14/2025 3:33 PM EDT) [facility] Gamma Glutamyl Transpeptidase 34(H) 7 - 33 U/L [facility] 02/14/2025 3:33 PM EDT 02/14/2025 3:33 PM EDT Generic External Data Provider LAB BLOOD ORDERAB LES Final Result Performing Organization Address [facility] Co de Phone Number [facility] [address] [place] [phone] * (ABNORMAL) CBC auto differential (02/07/2025 2:07 PM EDT) [facility] White Blood Count 14.0(H) 4.8 - 10.8 X10*3/uL [facility] Red Blood Count 4.95 4.20 - 5.50 X10*6/uL [facility] Hemoglobin 14.1 12.0 - 16.0 g/dl [facility] Hematocrit 42.3 37.0 - 47.0 % [facility] Mean Corpuscular Volume 85.5 80.0 - 98.0 fL [facility] Mean Corpuscular Hemoglobin 28.5 27.0 - 33.0 pg [facility] Mean Corpuscular HGB Conc 33.3 31.0 - 35.0 g/dl [facility] Red Cell Distribution Width 13.2 11.0 - 16.0 % [facility] Platelet Count 377 160 - 400 X10*3/uL [facility] Mean Platelet Volume 10.3 9.4 - 12.3 fL [facility] Neutrophils Percent Auto 66.9 45 - 73 % [facility] Imm Gran Pct Auto 0.7(H) 0.0 - 0.4 % [facility] Lymphocytes Percent Auto 23.8 20 - 40 % [facility] Monocytes Percent Auto 6.1 2 - 11 % [facility] Eosinophils Percent Auto 2.1 0 - 4 % [facility] Basophils Percent Auto 0.4 0 - 2 % [facility] NRBC Pct Auto 0.0 0.0 - 0.2 /100WBC [facility] Neutrophils Absolute Auto 9.4(H) 2.0 - 8.3 x10*3/uL [facility] Imm Gran Abs Auto 0.10(H) 0.00 - 0.03 X10*3/uL [facility] Lymphocytes Absolute Auto 3.3 1.2 - 4.9 X10*3/uL [facility] Monocytes Absolute Auto 0.9 0.1 - 1.2 X10*3/uL [facility] Eosinophils Absolute Auto 0.3 0.0 - 0.4 X10*3/uL [facility] Basophils Absolute Auto 0.1 0.0 - 0.2 X10*3/uL [facility] NRBC Abs Auto 0.000 0.0 - 0.012 X10*3/uL [facility] 02/07/2025 2:07 PM EDT 02/07/2025 4:04 PM EDT us Generic External Data Provider LAB BLOOD ORDERAB LES Final Result [facility] [address] [place] [phone] * Prolactin (02/07/2025 2:07 PM EDT) [facility] Prolactin 11.2 ng/mL [facility] Comment:Reference Range Fema les Non- 3.0-30.0 10.0-209.0 Postmenopausal 2.0-20.0THIS TEST WAS PERFORMED AT:[facility] [place] [address]JKQQBBRYON GONZALEZ MD Blood Venous blood specimen / Unknown 02/07/2025 2:07 PM EDT 02/07/2025 4:04 PM EDT Oksana Mina [facility] LAB BLOOD ORDERABLES Misti l Result Performing Organization Address [facility]/ZIP Co de Phone Number [facility] [address] [place] [phone] * (ABNORMAL) Reticulocyte Count (02/07/2025 2:07 PM EDT) [facility] Reticulocytes Absolute 0.142(H) 0.026 - 0.095 X10*6/uL [facility] Immature Retic Fraction 13.3 3.0 - 15.9 % [facility] Retic HGB Equivalent 32.9 30.0 - 35.0 pg [facility] Reticulocyte Percent 2.9(H) 0.5 - 1.8 % [facility] 02/07/2025 2:07 PM EDT 02/07/2025 4:04 PM EDT us Generic External Data Provider LAB BLOOD ORDERAB LES Final Result Performing Organization Address [facility]/ZIP Co de Phone Number [facility] [address] [place] [address] [phone] * T4, Free (02/07/2025 2:07 PM EDT) [facility] Free T4 (Free Thyroxine) 0.89 0.71 - 1.85 ng/dL [facility] 02/07/2025 2:07 PM EDT 02/07/2025 4:04 PM EDT Oksana Mina [facility] LAB BLOOD ORDERABLES Misti l Result Performing Organization Address City/[facility]/ZIP Co de Phone Number [facility] [address] [place] [phone] * Testosterone, Total, males (Adult), IA (02/07/2025 2:07 PM EDT) Testosterone, Total 18 2 - 45 ng/dL [facility] Comment:For additional infor robin, please refer tohttp://education.[employer]/faq/JqzvjWddwwyirrtanJGFMSEYTA540(This link is being provided for informational/educational purposes only.)This test was developed and its analytical performancecharacteristics have been determined by [employer] [place], [place]. It hasnot been cleared or approved by the U.S. Food and DrugAdministration. This assay has been validated pursuantto the CLIA regulations and is used for clinicalpurposes.THIS TEST WAS PERFORMED AT:[employer]/[id number] [place] [address]RWIGKFWESTUARDO CLINE MD,PHD Blood Venous blood specimen / Unknown 02/07/2025 2:07 PM EDT 02/07/2025 4:04 PM EDT [facility] BLOOD ORDERABLES Misti l Result Performing Organization Address [facility]/ZIP Co de Phone Number [facility] [address] [place] [phone] * (ABNORMAL) Lactate Dehydrogenase (LD) (02/07/2025 2:07 PM EDT) Lactate Dehydrogenase 227(H) 122 - 220 U/L [facility] 02/07/2025 2:07 PM EDT 02/07/2025 4:04 PM EDT us Generic External Data Provider LAB BLOOD ORDERAB LES Final Result Performing Organization Address [facility] Co de Phone Number [facility] [address] [place] [phone] * Haptoglobin (02/07/2025 2:07 PM EDT) Haptoglobin 230 35 - 250 mg/dL [facility] 02/07/2025 2:07 PM EDT 02/07/2025 8:01 PM EDT us Generic External Data Provider LAB BLOOD ORDERAB LES Final Result Performing Organization Address [facility] de Phone Number [facility] [address] [place] [phone] * (ABNORMAL) Ferritin (02/07/2025 2:07 PM EDT) Ferritin 124(H) 10 - 122 ng/mL [facility] 02/07/2025 2:07 PM EDT 02/07/2025 4:04 PM EDT Generic External Data Provider LAB BLOOD ORDERAB LES Final Result Performing Organization Address [facility] Co de Phone Number [facility] [address] [place] [phone] * Bilirubin, Direct (02/07/2025 2:07 PM EDT) Bilirubin, Direct <0.2 0.0 - 0.5 mg/dL [facility] 02/07/2025 2:07 PM EDT 02/07/2025 4:04 PM EDT Generic External Data Provider LAB BLOOD ORDERAB LES Final Result Performing Organization Address [facility]/ZIP Co de Phone Number [facility] [address] [place] [phone] * (ABNORMAL) Comprehensive Metabolic Panel (02/07/2025 2:07 PM EDT) Sodium 139 135 - 145 mmol/L [facility] Potassium 4.3 3.3 - 5.1 mmol/L [facility] Chloride 107 96 - 108 mmol/L [facility] Carbon Dioxide 24 22 - 29 mmol/L [facility] Anion Gap 12 12 - 20 [facility] Urea Nitrogen (BUN) 14 9 - 16 mg/dL [facility] Creatinine, Serum 0.71 0.5 - 1.4 mg/dL [facility] Estimated Glomerular Filt Rate >60 [facility] Comment:Chronic Kidney Disea se: Estimated GFR < 60 mL/min/1.89e3Tadrkt Kidney Disease: Estimated GFR < 15 mL/min/1.73m2 Glucose 118(H) 60 - 115 mg/dL [facility] Calcium 9.1 8.4 - 10.2 mg/dL [facility] Bilirubin, Total 0.2 0.0 - 1.0 mg/dL [facility] Aspartate Amino Transferase 32(H) 5 - 31 U/L [facility] Alanine Aminotransferase 49(H) 0 - 31 U/L [facility] Total Protein 7.8 6.5 - 8.0 g/dL [facility] Albumin Level 4.1 3.5 - 5.0 g/dL [facility] Alkaline Phosphatase 92 39 - 117 U/L [facility] 02/07/2025 2:07 PM EDT 02/07/2025 4:04 PM EDT us Generic External Data Provider LAB BLOOD ORDERAB LES Final Result Performing Organization Address [facility]/ZIP Co de Phone Number [facility] [address] [place] [phone] * POCT hemoglobin docked device (02/07/2025 1:38 PM EDT) Hemoglobin 14.6 12.0 - 15.0 QC Media Lot # [id number] Lot# Expiration Date , Blood 02/07/2025 1:38 PM EDT Oksana Mina CNM POINT OF CARE TEST ENTER/ EDIT ORDERABLES Final Result * STI testing add on (NG, CT, Trich) (02/07/2025 12:00 AM EDT) Pathologist [facility] Trichomonas (NAAT) NOT DETECTED NOT DETECTED [facility] Comment:The analytical perfo rmance characteristics of thisassay have been determined by [employer]. Themodifications have not been cleared or approved bythe FDA. This assay has been validated pursuant to theCLIA regulations and is used for clinical purposes.For additional information, please refer tohttp://education.[employer]/faq/Trichomonastma(This link is being provided for information/educational purposes only.)THIS TEST WAS PERFORMED AT:[address] [place] [address]TTECUBRYON GONZALEZ MD CTNG Ref Lab NOT DETECTED NOT DETECTED [facility] NG Ref Lab NOT DETECTED NOT DETECTED [facility] ThinPrep vial Cervix uteri structure / Unknown 02/07/2025 02/08/2025 11:40 AM EDT Narrative [facility] - 02/09/2025 7:03 PM EDT Collection Date: [id number] by: JUNE Matute: Cervix Oksana Mina CNM LAB CYTOLOGY ORDERABLES F inal Result [facility] [address] [place] [phone] * Pap Smear (02/07/2025 12:00 AM EDT) Swab Cervix uteri structure / Unknown 02/07/2025 02/08/2025 11:40 AM EDT Narrative [facility] - 02/14/2025 10:05 AM EDT ----- ------- Name: Mela Farrell Age/Sex: 19/F : 2005 Unit#: [id number] Attend Dr: Re02/07/25 Status: PRE REF Location: [facility] Disch: ----- ------- SPEC : [id number] RECD: 02/08/25-1140 STATUS: HARRY WALTERS NUM: [id number] NERIS: 02/07/25-[address]: OKSANA MINA CNM ENTERED: 02/08/25-1157 SP TYPE: Pap [facility] DR: ORDERED: Pap Smear, PAP path review [...] and HPV testing will be performed at [facility] (CLIA #[id number]), [address] [place], [place] [address]. Testing for HPV was performed using the [...] detected. All professional services are performed by [facility] ([address] [place] [address]; ; CLIA #[id number]). The PAP Test is a screening procedure [...] ------- END OF REPORT us Oksana Mina [facility] CYTOLOGY ORDERABLES F inal Result [facility] [address] [place] [address] [phone] * Hepatitis C Antibody with Reflex to HCV, RNA, Quantitative, Real-Time PCR (11/01/2024 12:34 PM EDT) Hepatitis C Antibody Nonreactive Nonreactive [facility] Comment:Antibodies to HCV no t detected; does not exclude early acuteHCV infection. Blood Venous blood specimen / Unknown 11/01/2024 12:34 PM EDT 11/01/2024 2:14 PM EDT Rubi Cuellar MD LAB BLOOD ORDERABLES Final Re sult [facility] [address] [place] [phone] * (ABNORMAL) Lipid Panel, Standard (11/01/2024 12:34 PM EDT) Triglycerides 189(H) <150 mg/dL [facility] Comment:Desirable Triglyceri de: less than 150 mg/dLBorderline High Triglyceride 150-199 mg/dLHigh Triglyceride: 200-499 mg/dLVery High Triglyceride: greater than or equal to 5OO mg/dL Cholesterol 134 <200 mg/dL [facility] Comment:Desirable Cholestero l: less than 200 mg/dLBorderline High Cholesterol: 200-239 mg/dLHigh Cholesterol: greater than 239 mg/dL LDL Cholesterol Calculated 69 <100 mg/dL [facility] Comment:Desirable LDL: less than 100 mg/dLNear Optimal/Above Optimal LDL: 110- 129 mg/dLBorderline High LDL: 130-159 mg/dLHigh LDL: 160-189 mg/dLVery High LDL: greater than or equal to 190 mg/dL HDL Cholesterol 28(L) >40 mg/dL [facility] Comment:Desirable HDL: great er than 40 mg/dL Note: This HDL assay may give artificially low results in patients with liver disease. Blood Venous blood specimen / Unknown 11/01/2024 12:34 PM EDT 11/01/2024 2:18 PM EDT us Rubi Cuellar MD LAB BLOOD ORDERABLES Final Re sult Performing Organization Address City/[facility]/ZIP Co de Phone Number [facility] [address] [place] [phone] * HIV-1/2 Antigen and Antibodies, Fourth Generation, with Reflexes (07/30/2023 1:53 PM EST) HIV AB/AG Nonreactive Nonreactive [facility] Comment:HIV-1 p24 Ag and/or HIV-1/HIV-2 Ab not detected.A test result that is nonreactive does not exclude thepossibility of exposure to or infection with HIV-1 and/orHIV-2. Nonreactive results in this assay for individualswith prior exposure to HIV-1 and/or HIV-2 may be due toantigen and antibody levels that are below the limit ofdetection of this assay.The [employer] HIV Ag/Ab Combo assay result andsupplemental assay results should be interpreted inconjunction with the patient's clinical presentation,history and other laboratory results. If the results areinconsistent with clinical evidence, additional testing issuggested to confirm the result. Blood Venous blood specimen / Unknown 07/30/2023 1:53 PM EST 07/30/2023 5:22 PM EST us Rubi Cuellar MD LAB BLOOD ORDERABLES Final Re sult Performing Organization Address City/[facility]/ZIP Co de Phone Number [facility] [address] [place] [phone] from Last 3 Months or Most Recently Relevant to Health Maintenance Insurance [address] [address] C3 Care Teams City Dispatcher Relationship Specialty Start Date End Date Rubi Cuellar MD [address] [place] [address] PCP - General Family Medicine 07/30/23 Kita Gee RN [address] [place] [phone] Registered Nurse Family Medicine 02/27/25 Chana Del Valle 02/27/25 Mann Hutton [address] [place] [phone] Nurse Practitioner Psychiatry 07/23/24
--- OUTSIDE RECORDS SUMMARY | 2025-05-04 21:41 | XMS_ITS | Encounter Summary ---
Author Organization [employer] Address [address] [facility] 7t [place] [address] Care Team Providers Care Orientation & Mobility Specialist Name Role Phone Rubi Cuellar MD Primary Care Provider [phone] Javon Marquez RN Unavailable [phone] Cher Ribera Unavailable Kita Gee RN Unavailable [phone] Chana Del Valle Unavailable Encounter Details Date Type Department Care Team (Late st Contact Info) Description 08/05/[address] [facility] [address] [place] [address] Rubi Cuellar MD [address] [place], [place] [phone] Social History Tobacco Use Types Packs/Day Years [...] Description 06/08/2025 1:30 PM EST Clinical Support [facility] [address] [place], [place] [phone] Triny Garcia [address] [place] [address] documented as of this encounter Visit Diagnoses Not on filedocumented in this encounter Additional Health Concerns Assessment Noted Time PHQ-9 Depression Total Score: 8 07/30/19 24 12:52 PM EST documented as of this encounter Care Teams Orientation & Mobility Specialist Relationship Specialty Start Date End Date Rubi Cuellar MD [address] [place] [address] PCP - General Family Medicine 07/30/23 Javon Marquez, RN [address] [place] [address] Registered Nurse Family Medicine 01/06/25 02/24/25 Cher Ribera 01/06/25 02/24/25 Kita Gee, GODRON [address] [place] [address] Registered Nurse Family Medicine 02/27/25 Chana Del Valle 02/27/25 Mann Hutton [address] [place] [phone] Nurse Practitioner Psychiatry 07/23/24 documented as of this encounter
--- OUTSIDE RECORDS SUMMARY | 2025-05-04 21:41 | XMS_ITS | Encounter Summary ---
Author Organization [employer] Address [address] [facility] 7t [place] [address] Care Team Providers Care Service Delivery Director Name Role Phone Rubi Cuellar MD Primary Care Provider Javon Marquez RN Unavailable [phone] Cher Ribera Unavailable Kita Gee RN Unavailable [phone] Chana Del Valle Unavailable Reason for Visit * Reason Onset Date Comments Nurse Triage 01/05/2025 Encounter Details Date Type Department Care Team (Late st Contact Info) Description 01/05/2025 Telephone [facility] [address] [place] [address] Rubi Cuellar MD [address] [place], [place] [phone] Nurse Triage Social History Tobacco Use Types [...] Miscellaneous Notes * Telephone Encounter - Radha Keith, BRUCE - 01/05/2025 4:04 PM EDT Triage call returned with BLS # [id number] Renee. Patient called reporting numbness of both [...] Protocol Available (Adult) Protocol-Based Disposition: Go to ED/[facility] (or to Office Now per Policy) Video visit not offered Positive Triage Questions: * Nursing judgment * Patient wants to be seen * All higher-acuity triage questions were negative Care Advice Discussed: * Reasons To Call Back - New symptoms develop - You become worse * Telephone Encounter - Jacob Hernandez - 01/05/2025 3:56 PM EDT Symptom: Numbness in hands Outcome: Schedule an appointment to be seen within 3 days Reason: Caller denied all higher acuity questions The caller accepted this outcome. Slovenian speaking documented in this encounter Plan of Treatment Upcoming Encounters Date Type Department Care Team (Late st Contact Info) Description 06/08/2025 1:30 PM EST Clinical Support [facility] [address] [place] [address] [place] [address] documented as of this encounter Visit Diagnoses Not on filedocumented in this encounter Additional Health Concerns Assessment Noted Time PHQ-9 Depression Total Score: 10 025 4:04 PM EDT documented as of this encounter Care Teams Service Delivery Director Relationship Specialty Start Date End Date Rubi Cuellar MD [address] [place] [address] PCP - General Family Medicine 07/30/23 Javon Marquez, RN [address] [place] [address] Registered Nurse Family Medicine 01/06/25 02/24/25 Cher Ribera 01/06/25 02/24/25 Kita Gee RN [address] [place] [address] Registered Nurse Family Medicine 02/27/25 Chana Del Valle 02/27/25 Mann Hutton [address] [place] [phone] Nurse Practitioner Psychiatry 07/23/24 documented as of this encounter
--- OUTSIDE RECORDS SUMMARY | 2025-05-04 21:41 | XMS_ITS ---
Author Organization [employer] Address [address] [place] [address] 7 [place] [address] Care Team Providers Care Medical Apparatus Model Maker Name Role Phone Rubi Cuellar MD Primary Care Provider [phone] Kita Gee RN Unavailable [phone] Chana Del Valle Unavailable CM Complex Status:Outreach In Progress (Enrolling) Start date:02/27/2025 Enrollment reason:ADT Feed Overview ED- [place] [facility] [place]. Case Team Name Relationship Phone Kita Gee RN(Responsible Staff) Registered Nurse [phone] Continued Care and Services Coordination
--- OUTSIDE RECORDS SUMMARY | 2025-05-04 21:41 | XMS_ITS ---
Author Organization [employer] Address [address] [place] [address] 7 [place] [address] Care Team Providers Care Field Placement Director Name Role Phone Rubi Cuellar MD Primary Care Provider [phone] Kita Gee RN Unavailable [phone] Chana Del Valle Unavailable CHW Complex Status:Outreach In Progress (Enrolling) Start date:02/27/2025 Enrollment reason:ADT Feed Overview ED- Pt went to [facility] on 02/26/25. Please outreach for enrollment. Case Team Name Relationship Phone Chana Del Valle(Responsible Staff) [phone] Continued Care and Services Coordination
--- OUTSIDE RECORDS SUMMARY | 2025-05-04 21:41 | XMS_ITS | Encounter Summary ---
Author Organization [employer] Address [address] [facility] 7t [place] [address] Care Team Providers Care Backpackers Manager Name Role Phone Rubi Cuellar MD Primary Care Provider Javon Marquez RN Unavailable [phone] Cher Ribera Unavailable Kita Gee RN Unavailable [phone] Chana Del Valle Unavailable Reason for Visit * Reason Onset Date Comments Prior Authorization 12/02/2024 Encounter Details Date Type Department Care Team ([facility] st Contact Info) Description 12/02/2024 Telephone [facility]EDS [address] [place], [place] [phone] Rubi Cuellar MD [address] [place], [place] [phone] Prior Authorization Social History Tobacco Use Types [...] 1:30 PM EST Clinical Support [facility] [address] [place], [place] [phone] Triny [address] [place] [address] documented as of this encounter Visit Diagnoses Not on filedocumented in this encounter Additional Health Concerns Assessment Noted Time PHQ-9 Depression Total Score: 10 025 4:04 PM EDT documented as of this encounter Care Teams Backpackers Manager Relationship Specialty Start Date End Date Rubi Cuellar MD [address] [place] [address] PCP - General Family Medicine 07/30/23 Javon Marquez, RN [address] [place] [address] Registered Nurse Family Medicine 01/06/25 02/24/25 Cher Ribera 01/06/25 02/24/25 Kita Gee RN [address] [place] [address] Registered Nurse Family Medicine 02/27/25 Chana Del Valle 02/27/25 Mann Hutton [address] [place] [phone] Nurse Practitioner Psychiatry 07/23/24 documented as of this encounter
== END 2025-05-04 14:11 ==
LOC: HO.HHCL 14:10
PROVIDERS: PCP Family Medicine; Visit Provider Advanced Practice Midwife
DX: R79.89 Other specified abnormal findings of blood chemistry (principal)
CPT/HCPCS: 36415; 84443